=== PATIENT | male | born 1930 | race Caucasian/White ===

== ENCOUNTER 2016-07-31 11:10 | Day surgery (SDC) | payer MEDICARE ==
--- NOTE | 2016-07-27 17:09 | PCM.HPSURG ---
Subjective Date of Service: Jul 27, 2016 Referring Provider: Admitting Physician: Primary Care Physician: Esau Temple MD Attending Physician: Logan Juarez MD Chief Complaint SEE BELOW History of Present Illness Patient: Rafiq De La Vega Date of : 1930 Visit Type: Pre Op Visit Date: 07/27/2016 01:00 PM This 86 year old male presents for Preop Minimal Access/Metrx L3-5 Rahul. Decompression. History of Present Illness: 1. Preop Minimal Access/Metrx L3-5 Rahul. Decompression Rafiq De La Vega is a 86 year old male referred by Primary Care Provider (PCP) Dr. Dion Tempel M.D. who presents today's date 07/27/2016 for a preoperative type of appointment concerning the decision for surgery involving Metrx or minimal access surgery involving bilateral lumbar segmental decompression at the L3-4 & L4-5 levels with approach from the left & placement of epidural fat graft from separate subcutaneous incision secondary to a diagnosis of lumbar spinal stenosis with neurogenic claudication with related complaints of severe, intractable, and debilitating lower back pain radiating to the bilateral Left > right lower extremities worse with standing up straight or walking & better leaning forward, or sitting down. The patient last presented for another evaluation with Dr. Logan Juarez M.D. on 07/24/2016 regarding his progressive neurogenic claudication symptoms due to multilevel lumbar spinal stenosis L2 3 L3 4 and L4 5. Patient previously scheduled for surgery but canceled his surgery because of improvement of his symptoms in mid May. Since that time his symptoms have reoccurred especially in the left lower extremity with the patient is having rather severe pain. Previously patient went to proceed with open decompression at all 3 levels but he and his now considering the minimal access approach rather than the open approach. They understand it has to be a staged procedure. According to Dr. Logan Juarez M.D. the patient has intractable symptomatic lumbar spinal stenosis with neurogenic claudication indicating surgical decompression at L3-4 & L4-5. The plan is to proceed with surgery using a minimal access approach AKA Metrx type tubes from the left. Decompression of L2 -3 may be needed in the future. Dr. Juarez and the patient discussed all the risks and benefits associated with the procedure as well as reasonable expectations with respect to surgical outcomes & the patient elected to proceed with surgery as planned. The patient denies any related complete or acute loss of control of bowel or bladder function, saddle paresthesia or anesthesia. The patient has a pertinent positive past medical, surgical and social history for bilateral hemiknee arthroplasty, right shoulder acromioplasty, hearing loss , nocturia, possible BPH, 1 drink per week, & anxiety. The patient's related complaints have been a serious detriment to their happiness and activities of daily living. Having failed conservative treatment the patient presents today for their decision for surgery appointment involving Metrx or minimal access surgery involving bilateral lumbar segmental decompression at the L3-4 & L4-5 levels with approach from the left & placement of epidural fat graft from separate subcutaneous incision for treatment of lumbar spinal stenosis with neurogenic claudication; related to severe, intractable, and debilitating lower back pain radiating to the bilateral Left > right lower extremities worse with standing up straight or walking & better leaning forward, or sitting down. The procedure is scheduled to be performed by Dr. Logan Juarez M.D. on 05/31/2016. ANESTHESIA NOTE: We are requesting anesthesia consultation [facility] for advanced age & short notice for surgical scheduling. Medical/Surgical/Interim History Reviewed, no change. Last detailed document date:07/27/2016. Family History: Reviewed, no changes. Last detailed document date:07/27/2016. Social History (Reviewed, updated) 07/27/2016 Tobacco use reviewed. Preferred language is Cape Verdean. The patient does not need an upper stitcher. Marital Status/Family/Social Support Currently unknown. Smoking status: Never smoker. Smoking Status Use Status Type Smoking Status Years Used Total Pack Years no/never Never smoker CAFFEINE The patient uses caffeine - 2 cups a day. Allergies: Ingredient Reaction Medication Name Comment NO KNOWN ALLERGIES Reviewed, no changes. Review of Systems System Neg/Pos Details Eyes Negative Double vision and vision loss. Psych Negative Anxiety and depression. Constitutional Negative Chills and fever. Edison/Lymph Negative Blood clots. Cardio Negative Chest pain, irregular heartbeat/palpitations, leg swelling and pacemaker. Integumentary Negative Mrsa and rash. GI Negative Abdominal pain, constipation, diarrhea, nausea and vomiting. ENMT Negative Hearing loss. Endocrine Negative Weight gain and weight loss. Respiratory Negative Dyspnea, apnea and wheezing. MS Negative Back pain, bone/joint symptoms and muscle weakness. Negative Dysuria, urge incontinence and urinary incontinence. Neuro Negative Dizziness, headache and seizures. Vital Signs Height Time ft in cm Last Measured Height Position % 1:06 PM 5.0 7.00 170.18 07/24/2016 Weight/BSA/BMI Time lb oz kg Context % BMI kg/m2 BSA m2 1:06 PM 186.40 84.550 29.19 Blood Pressure Time BP mm/Hg Position Side Site Method Cuff Size 1:06 PM 105/57 sitting left wrist automatic adult Temperature/Pulse/Respiration Time Temp F Temp C Temp Site Pulse/min Pattern Resp/ min 1:06 PM 98.0 36.7 78 regular Pain Scale Time Pain Score Method 1:06 PM 6/10 Numeric Pain Intensity Scale Measured By Time Measured by 1:06 PM Mari Ibrahim MA Screening Summary:o Pain is described as 6/10. Evaluated pain score with Numeric Pain Intensity Scale. The following were reviewed: tobacco use, alcohol use and caffeine use Physical Exam Exam Findings Details Comments Gen.: Patient was examination and appears to be a moderate muscle skeletal discomfort HEET: Normal with full range of motion Chest : Clear P and A Heart: Regular rate and rhythm Abdomen; soft non-tender normal bowel sounds Ext.: 5-/5 strenght. Numbness in a stocking distribution. Negative straight leg midline degrees some mild giveaway weakness of dorsiflexion on the left. Back: There is involuntary paraspinous muscle spasm. No tenderness over the SI joint. Walter's maneuver is negative. Radiographic imaging: Patient is multilevel degenerative disc and facet disease with severe stenosis at the L3 4 and L4 5 levels and moderate to severe stenosis at L2-3. No evidence of a spondylolisthesis. Assessment/Plan # Detail Type Description 1. Assessment Lumbar stenosis with neurogenic claudication (M48.06). 2. Assessment Preop examination (Z01.818). Patient Plan We including your Attending Surgeon have discussed the risks and benefits associated your scheduled procedure which you have verbally acknowledged understanding including but not limited to the possibility of an outcome that we are unable to predict or was not mentioned. 1. You are scheduled for a Metrx or minimal access surgery involving bilateral lumbar segmental decompression at the L3-4 & L4-5 levels with approach from the left & placement of epidural fat graft from separate subcutaneous incision with Dr. Logan Juarez M.D. at [facility] on 05/31/2017. 2. Check in time is 11 AM. Also please ignore instructions below if told otherwise by your preadmission nurse or if you do not take the medications listed below. 3. Nothing to eat after midnight the night before surgery. You may take all of your "approved" medications with small sips of water. Remember to take your a.m. hypertension medication if it is a beta harish and ends in "olol. Otherwise ask your doctor if you need to hold your a.m. hypertension medication. 4. No aspirin, ibuprofen, Naprosyn, or other NSAIDs starting 7 days prior to surgery. 5. Please stop Warfarin/Coumadin or other blood thinners such as Plavix, Aggrenox, or Xarelto 7 days prior to your surgical procedure and follow specific instructions from your prescribing provider. 6. Please stop Lovenox bridging in the morning one day prior to procedure. 7. Please stop Suboxone/Buprenorphine at least 4 days prior to procedure. 8. Go to the hospital today to get her preoperative testing done. Take the order form to the surgery desk on the second floor of the [facility] (main entrance next to the emergency entrance). I will notify you if there is any test results that require further workup prior to surgery. 9. Follow the instructions you were given today, use the cleansing cloths the night before as well as the morning of her surgery. 10. If you are prescribed inhalers, CPAP or BiPAP machines you use at home bring along with you to the hospital. 11. ONLY If you take medications for Diabetes: If you have an insulin pump continue lowest (typically night-time) basal rate into the a.m. If you do not have a pump check h your a.m. blood sugar and hold insulin if BS less than 100. If you are taking long-acting, intermediate acting (NPH) or 70/30 preparation : Take half on day of procedure. If you are taking ultra long-acting insulin such as glargine, Lantus either at night or in the a.m. continue as scheduled ( including day of surgery). If you take short acting regular insulin (insulin not delivered via pump) discontinue on day of procedure. 12. Please call if you have any questions before your surgery: [phone]. Today's instructions/counseling include(s) Pre-operative instructions given to the patient and or legal car sales representative(s) orally and in writing. 13. Our office will contact you if there are any test results that require further workup prior to surgery. Provider Plan The patient's history and examination as well as radiological findings were reviewed with Dr. Logan Juarez M.D. and conveyed the patient in detail. The findings are consistent with lumbar spinal stenosis with neurogenic claudication and are most likely the cause of the patient's severe, intractable , and debilitating lower back pain radiating to the bilateral Left > right lower extremities worse with standing up straight or walking & better leaning forward, or sitting down. The patient has failed extensive conservative treatment for this condition. The treatment options were discussed with the patient. The options include attempt to live with the condition, reattempt conservative treatment, try a pain management intervention / injection or consider a surgical intervention. We are not extremely optimistic that further conservative treatment, pain management intervention and/or injection will adequately resolve the patient's symptoms of severe, intractable, and debilitating lower back pain radiating to the bilateral Left > right lower extremities worse with standing up straight or walking & better leaning forward, or sitting down. Therefore we recommend Metrx or minimal access surgery involving bilateral lumbar segmental decompression at the L3-4 & L4-5 levels with approach from the left & placement of epidural fat graft from separate subcutaneous incision. The patient was provided/offered educational materials pertaining to their diagnosis and the above discussed procedure. We discussed the risks and benefits associated with this surgery. A spine model was used to explain the nature of this type of surgery. The risk of the required anesthesia was also mentioned including but not limited to organ failure such as heart attack, pneumonia and stroke even . The risk of this type of surgery was also mentioned. Including but not limited to an unsuccessful outcome, residual symptoms, referred or radiating posterior spinal myofascial inflammatory pain or spasm, post operative instability, instrumentation failure, sensory changes, blood loss, blood clots, wound infection, spinal cord or nerve damage, CSF or lymph leak, damage to neighboring structures such as the abdominal vasculature, bowel, ureter, and bladder, resulting in temporary or permanent dysfunction, even disability, paralysis, and . The recovery of this type of surgery was also mentioned. The chances for improvement of the lumbar spinal stenosis & neurogenic claudication related symptomatology at one year is 70-80%. The chances of improvement of local mechanical lower back pain is 50%. The patient verbalized understanding all the risks and benefits, knowing that it is impossible to predict or guarantee every surgical outcome; and would like to proceed with the above discussed procedure anyways. Surgery is scheduled for 07/31/[address] [facility] preoperative screening tests, medicine restrictions, and logistical protocols apply. Any preoperative testing is within normal limits to undergo the above discussed procedure unless otherwise noted in the medical record. ANESTHESIA NOTE: We are requesting anesthesia consultation [facility] for advanced age & short notice for surgical scheduling. Medications (added, continued or stopped this visit): Start Date Medication Directions Stop Date Aspir-81 81 mg tablet,delayed release take 1 tablet by oral route every day 07/27/2016 docusate sodium 250 mg capsule take 1 capsule by oral route 2 times every day 07/27/2016 finasteride 5 mg tablet take 1 tablet by oral route every day GLUCOSAMINE SULFATE hydrochlorothiazide take 1 capsule by oral route every day HYDROCODONE/ACETAMINOPHEN take 1 tablet by oral route every 6 hours as needed for pain lorazepam 1 mg tablet take 1 tablet by oral route 2 times every day as needed lovastatin take 1 tablet by oral route every day with the evening meal mirtazapine 15 mg tablet take 1 tablet by oral route every day before bedtime 07/30/2016 [place] 10 mg-325 mg tablet take 1-2 tablet by oral route every 4 - 6 hours as needed for pain Super B-50 Complex capsule tamsulosin 0.4 mg capsule take 1 capsule by oral route every day 1/2 hour following the same meal each day 07/27/2016 trazodone 100 mg tablet take 0.5 tablet by oral route every day after meals venlafaxine 75 mg tablet take 1 tablet by oral route 2 times every day with food Counseling/Educational Factors: Counseling / educational factors reviewed. Counseling / educational factors reviewed. This is a visit of 60 minutes. 50 minutes were spent counseling. The patient was checked out at 2:02 PM. This document may have been created using voice recognition software or other electronic means and may contain inadvertent adapted physical education specialist errors. Provider: Toni MCELROY 07/27/2016 02:19 PM Document generated by: Toni Cobb 07/27/2016 02:19 PM CC Providers: Dion Temple [address] [place] [id number]- Dion Temlpe [address] [place] [phone] [place] [address] w w howie Del Toro s r c l i n i c seda rubio Allergy Allergies: Coded Allergies: No Known Allergies (Verified , 11/26/03) Toni Cobb PA-C Jul 27, 2016 17:09
[~2016-07-31] VITALS: Ht 170.2 cm; Wt 83.9 kg
[2016-07-31] VITALS (14 sets, daily range): BP systolic 129–179; BP diastolic 51–78; PULSE 64–78; RESP 12–20; O2SAT 94–100
[~2016-07-31 11:10] MED LIST: ASPI-973 PO; Bacitracin 50,000 unit Inj IRRIGATION ONE; Bupivacaine Liposome 1.3% 20 mL Inj INFILTRATE ONE; CeFAZolin 2 Gm/50 mL D5W IV Premix IV ONE; DOCU250C2 PO; FINA5TAB9 PO; GLUC1CAP8 PO; HYDR-3740 PO; HYDR25TA4 PO; LORA1TAB PO; LOVA20TA PO; Lactated Ringer's 1,000 ML IV SCH; MIRT15TA6 PO; TAMS0.4C98 PO; TRAZ-118 PO; Thrombin Powder 5,000 Unit TOPICAL ONE; VENL37.57 PO; VITA150T PO
[2016-07-31] MEDS ORDERED: Lidocaine PF 1% 30 mL Inj ONE (11:11)
[2016-07-31] MEDS ORDERED: Phenylephrine/NS 100 mCg/mL 10 mL Syringe IVPUSH ONE (11:11)
[2016-07-31] MEDS ORDERED: Propofol 10,000 mCg/mL 20 mL Inj ONE (11:11)
[2016-07-31] MEDS ORDERED: Dexamethasone 4 mg/mL Inj ONE (11:11)
[2016-07-31] MEDS ORDERED: Ondansetron 2 mg/mL 2 mL Inj ONE (11:11)
[2016-07-31] MEDS ORDERED: EPHEDrine/NS 5 mg/mL 5 mL Syringe ONE (11:11)
[2016-07-31] MEDS ORDERED: fentaNYL-PF 50 mCg/mL 2 mL Inj ONE (11:11)
[2016-07-31] MEDS ORDERED: CeFAZolin 2 Gm/50 mL D5W Duplex Bag IV ONE (12:27)
[2016-07-31] MEDS ORDERED: Lactated Ringer's 1,000 ML IV ONE ×2 (12:48→14:40)
[2016-07-31] MEDS ORDERED: Bacitracin 50,000 unit Inj ONE (13:16)
[2016-07-31] MEDS ORDERED: Thrombin Powder 5,000 Unit TOPICAL ONE ×2 (13:16→14:19)
[2016-07-31] MEDS ORDERED: Bupivacaine Liposome 1.3% 20 mL Inj ONE (13:17)
--- NOTE | 2016-07-31 13:25 | PCM.HPANE ---
Patient Data Surgeon Admitting Provider: Attending Provider:Logan Juarez MD Primary Care Physician:Esau Temple MD Other Provider:Chiara Youingham Anesthesia Reason for Visit Lumbar Stenosis With Neurogenic Claudication Ht/WT & BMI Height (Feet): 5 Height (Inches): 7 Weight (Kilograms): 83.9 Body Mass Index 29.00 Allergies Coded Allergies: No Known Allergies (Verified , 11/26/03) Past Anesthesia History Anesthesia History: Denies:: Anesthesia Reactions Diabetes History Hx Diabetes?: No Medications Blood Thinner: Aspirin Hypertension Medication: Yes (HCTZ) Home Meds Incl Beta Kyaw: No Reported Medications Venlafaxine 37.5 Mg Ffduva41.5 Mg PO BIDWM Ref 0 07/30/16 Trazodone 100 Mg [id number] Mg PO HS Ref 0 07/30/16 Tamsulosin (Flomax)0.4 Mg Capsule0.4 Mg PO DAILY Ref 0 07/30/16 Vitamin B Complex & Vit C No.4 (Super B Complex)150 Mg [id number] Mg PO DAILY 07/30/16 Hydrocodone-Acetaminophen 10-325 mg 1 Each Tablet1-2 Tablet PO Q4H PRN For Pain Ref 0 07/30/16 Mirtazapine 15 Mg [id number] Mg PO HS Ref 0 07/30/16 Lovastatin 20 Mg [id number] Mg PO HS #30 TABLET Ref 0 07/30/16 Lorazepam 1 Mg Tablet1 Mg PO HS PRN For Insomnia Ref 0 07/30/16 Hydrochlorothiazide 25 Mg [id number] Mg PO DAILY 30 Days Ref 0 07/30/16 Gluc Briones/MSM/Magnesium/Vit C (Glucosamine Complex-MSM Cap)1 Each Capsule1 Each PO DAILY 07/30/16 Finasteride 5 Mg Tablet5 Mg PO DAILY 30 Days Ref 0 07/30/16 Docusate Sodium 250 Mg [id number] Mg PO BID PRN For Constipation Ref 0 07/30/16 Aspirin 81 Mg Aobbyf31 Mg PO DAILY Ref 0 07/30/16 History History of ENT Problems?: Yes HEENT History: Positive for:: Cataracts (bilateral) Hx of Heart Problems?: Yes Cardiovascular History: Positive for:: Hypertension Hx of Respiratory Problem?: No Respiratory History: Denies:: Oxygen Administration Use of C-PAP Machine Hx Neurologic Problems?: No Hx of GI Problems?: No Hx of Problems?: No Male Hx: Positive for:: Prostate Problems (BPH) Skin History: Denies:: History Skin Disorders? Hx Musculoskeletal Problems?: Yes Musculoskeletal History: Positive for:: Back Injury (current admission problem ) Joint Replacement (bilateral knees) Musculoskeletal Trauma (past hx acromioplasty) Hx of Psycho/Social Problems?: Yes Psycho Social History: Positive for:: Hx Depression Hx Surgeries?: Yes (andi cataracts, andi partial knees, acromioplasty) Hx Any Other Health Problems?: Yes Other History: Denies:: Cancer Thyroid Disease Hx Diabetes: No Hx Alcohol Use: Yes (daily)Hx Substance Use: NoHave You Smoked inLast 12 mo: No Stop/Bang S-Snoring: Do You Snore Loudly: No T-Tired: feel tired, fatigued: No O-Obsered: Observed not breath: No P-Blood Pressure: treated: Yes B- Body Mass Index > 35 kg/m2: No A- Age over 50: Yes N- Neck Large Circumference: No G- Gender Male: Yes EN Total Score: 3 EN Risk Assessment: Low Risk, <3 Yes Risk Assessment Category Category 1A: Patient has history of documented sleep apnea, and HAS NOT received any narcotic, sedative or anesthesia administration during this stay. Category 1B: Patient has history of documented sleep apnea, and HAS received any narcotic , sedative or anesthesia administration during this stay Category 2: Patient has SUSPECTED Obstructive Sleep Apnea, and HAS received any narcotic , sedative or anesthesia administration during this stay. Category 3: Patient has SUSPECTED Obstructive Sleep Apnea and HAS NOT received narcotic, sedative or anesthesia administration during this stay. Category 4: Outpatient in Procedural Areas with known sleep apnea or who screen positive for High Risk via the STOP/BANG questionnaire. Exam Exam Vital Signs Vital Signs Date Time Temp Pulse Resp B/P Pulse Ox O2 Delivery O2 Flow Rate FiO2 07/31/16 11:39 36.1 64 18 174/75 97 Room Air General Appearance: Alert, Oriented X3, Cooperative HEENT/AIRWAY: MP 2 Lungs: Clear to Auscultation Heart: Exam Unremarkable Plan Impression Patient chart reviewed, patient interviewed and anesthestic plan with risks, benefits, and alternatives discussed, and informed consent obtained. ASA Physical Status: ASA2 Mod Systemic Disease Anesthetic Plan: GA Bene/Risks/Altern/Consents: Yes HP Complete Prior to Induction: Yes Clifton Lindsey DO Jul 31, 2016 12:21
[2016-07-31] MEDS ORDERED: Lactated Ringer's 1,000 ML IV SCH (13:27)
[2016-07-31] MEDS ORDERED: Lactated Ringer's 500 ML IV PRN (13:27)
[2016-07-31] MEDS ORDERED: MetoCLOpramide 5 mg/mL 2 mL Inj IVPUSH PRN ×2 (13:30→16:40)
[2016-07-31] MEDS ORDERED: Dexamethasone 4 mg/mL Inj IVPUSH PRN (13:30)
[2016-07-31] MEDS ORDERED: EPHEDrine Sulfate 50 mg/mL Inj IVPUSH PRN (13:30)
[2016-07-31] MEDS ORDERED: HYDROmorphone 1 mg/mL Inj IVPUSH PRN ×2 (13:30→16:40)
[2016-07-31] MEDS ORDERED: Phenylephrine 10,000 mCg/mL Inj IVPUSH PRN (13:30)
[2016-07-31] MEDS ORDERED: fentaNYL-PF 50 mCg/mL 2 mL Inj IVPUSH PRN (13:30)
[2016-07-31] MEDS ORDERED: Ondansetron 2 mg/mL 2 mL Inj IVPUSH PRN ×2 (13:30→16:40)
[2016-07-31] MEDS ORDERED: Atropine 0.4 mg/mL Inj IVPUSH PRN (13:30)
[2016-07-31] MEDS ORDERED: Labetalol 5 mg/mL 4 mL Inj IV PRN (13:30)
[2016-07-31] MEDS ORDERED: hydrALAZINE 20 mg/mL Inj IVPUSH PRN (13:30)
[2016-07-31] MEDS ORDERED: Bacitracin 50,000 unit Inj XX ONE (14:18)
[2016-07-31] MEDS ORDERED: Gelatin Sponge 12-7 MM TOPICAL ONE (14:19)
[2016-07-31] MEDS ORDERED: Bupivacaine-MPF 0.25%/EPI 30 mL Inj INJ ONE (14:19)
[2016-07-31] MEDS ORDERED: Sodium Chloride Bacteriostatic 30 mL Inj IV ONE (14:20)
--- NOTE | 2016-07-31 14:34 | DRSVH ---
PROCEDURE: X-RAY LUMBAR SPINE, 2 OR 3 VIEW INDICATIONS: BILATERAL L3-4, L4-5 LUMBAR DECOMPRESSION TECHNIQUE: 2 views of the lumbar spine were acquired. COMPARISON: [facility], MR, L-SPINE WITHOUT CONTRAST, 03/09/2016, 18:49. [facility] pedic [place], CR, SPINE LUMB MIN 4VW, 01/31/2016, 11:18. FINDINGS: Bones: Radiopaque surgical probe projected over the posterior elements localizing the L4-L5 level for operative planning. Soft tissues: Incompletely evaluated. IMPRESSION: Radiopaque probe projected over the posterior elements at the L4-L5 level. Dr. Juarez given results at 1432 hrs. 07/31/2016 Dictated by: Richie Anthony RRA Interpreted: Trudy Blandon MD on 07/31/2016 at 14:30 Transcribed by: LYNNE on 07/31/2016 at 14:33 Approved by: Trudy Blandon MD, PhD on 07/31/2016 at 17:10
[2016-07-31] MEDS ORDERED: Bupivacaine Liposome 1.3% 20 mL Inj INFILTRATE ONE (16:03)
[2016-07-31] MEDS ORDERED: Sodium Biphos-Phos 133 mL Enema RECTAL PRN (16:40)
[2016-07-31] MEDS ORDERED: Magnesium Hydroxide 10 mL Oral Concentration PO PRN (16:40)
[2016-07-31] MEDS ORDERED: Senna-Docusate 8.6-50 mg Tablet PO PRN (16:40)
[2016-07-31] MEDS ORDERED: hydrOXYzine Pamoate 25 mg Capsule PO PRN (16:40)
[2016-07-31] MEDS ORDERED: HYDROcodone-APAP 5-325 mg Tablet PO PRN (16:40)
[2016-07-31] MEDS ORDERED: Polyethylene Glycol (PEG) 17 Gm Powder PO PRN (16:40)
[2016-07-31] MEDS ORDERED: HYDROcodone-APAP 10-325 mg PO PRN (17:05)
[2016-07-31] MEDS: Lactated Ringer's 1,000 ML IV SCH (18:05)
--- NOTE | 2016-07-31 18:26 | NUR ---
ADMIT TO [facility] Patient arrived to room 1008 on hospital bed, awake and talking. on 2 LPM O2, REEMA drain to L lower back. Lower back dressing is C/D/I. Able to wiggle toes bilaterally, sensation present. C/o slight numbness to L foot. Minor R shoulder pain, 07/17. IV fluids running. ice water given to patient. no complaints of nausea/vomiting. Will continue to monitor.
[2016-07-31] MEDS ORDERED: LORazepam 1 mg Tablet PO PRN (21:00)
[2016-07-31] MEDS: Senna-Docusate 8.6-50 mg Tablet PO SCH (22:53)
[2016-07-31] MEDS: CeFAZolin Inj 2 GM in IV Premix 1 EACH IV SCH (22:54)
[2016-08-01 00:15] VITALS: BP 135/70; PULSE 72; RESP 16; O2SAT 96
[2016-08-01] MEDS: Lactated Ringer's 1,000 ML IV SCH ×2 (00:45→10:52)
[2016-08-01 04:06] LABS: APPEARANCE,URINE CLEAR (CLEAR,HAZY); COLOR,URINE YELLOW (YELLOW); OCCULT BLOOD,URINE NEGATIVE (NEGATIVE); UROBILINOGEN,URINE NORMAL (NORMAL)
[2016-08-01 05:02] VITALS: BP 170/80; PULSE 85; RESP 17; O2SAT 96
[2016-08-01] MEDS: CeFAZolin Inj 2 GM in IV Premix 1 EACH IV SCH (05:52)
--- NOTE | 2016-08-01 06:00 | NUR ---
Mobility Pt is very unsteady on his feet, reports feeling dizzy and lightheaded. Able to stand for short period of time with assistance and FWW to void. Oriented and using call light appropriately, patricia alarm to be placed today for safety. Unable to ambulate yet. Denies pain. Hourly rounding ongoing.
[2016-08-01] MEDS ORDERED: VIT C NO 4 PO SCH (08:30)
[2016-08-01] MEDS ORDERED: MSM PO SCH (08:30)
[2016-08-01] MEDS ORDERED: GLUC SU PO SCH (08:30)
[2016-08-01] MEDS ORDERED: MAGNESIUM PO SCH (08:30)
[2016-08-01] MEDS ORDERED: [UNRECOGNIZED DRUG - OTHER] PO SCH (08:30)
[2016-08-01] MEDS ORDERED: VITAMIN B COMPLEX PO SCH (08:30)
[2016-08-01] MEDS ORDERED: VIT C PO SCH (08:30)
[2016-08-01] MEDS: Senna-Docusate 8.6-50 mg Tablet PO SCH (08:47)
--- NOTE | 2016-08-01 09:40 | PCM.ANEP1 ---
Post Anesthesia Phase 1 PACU Phase 1 Assessment Date of Service: Jul 27, 2016 Vital Signs Vital Signs Date Time Temp Pulse Resp B/P Pulse Ox O2 Delivery O2 Flow Rate FiO2 08/01/16 05:02 36.2 85 17 170/80 96 Nasal Cannula 2.00 Level of Alertness: Awake, talking GIBBONS's with Equal Strength: Yes Pain: No Nausea or Vomiting: No Oxygen Delivery: Simple Mask (pt seen immediately post op) Lungs: Clear to Auscultation Clifton Lindsey DO Aug 01, 2016 09:40
--- NOTE | 2016-08-01 09:40 | PCM.ANEP2 ---
Post Anesthesia Evaluation ASA/CMS Post Anesthesia VS in Patient's Normal Range?: Yes Resp Stable; Airway Patent?: Yes CV Function & Hydration Stable: Yes Mental Status Recovered?: Yes Pain control Satisfactory?: Yes N/V Control Satisfactory?: Yes Clifton Lindsey DO Aug 01, 2016 09:40
[2016-08-01 10:50] VITALS: BP 172/77; PULSE 74; RESP 16; O2SAT 97
--- NOTE | 2016-08-01 10:53 | PCM.DISURG ---
Surgical Discharge Instruction Date of Service Aug 01, 2016 Dates of Hospitalization Date of Hospital Admission Outpatient with a bed status 07/31/2016 Providers Admitting Physician: Primary Care Physician: Esau Temple MD Attending Physician: Logan Juarez MD Discharge Diagnosis Discharge Diagnosis Status post Metrx minimal access surgery involving bilateral lumbar segmental decompression at the L3-4 & L4-5 levels with approach from the left & placement of epidural fat graft from separate subcutaneous incision Post Operative diagnosis Status post Metrx minimal access surgery involving bilateral lumbar segmental decompression at the L3-4 & L4-5 levels with approach from the left & placement of epidural fat graft from separate subcutaneous incision Additional Instructions Discharge Instructions Minimally Invasive Lumbar Spinal Laminectomy & Decompression Instructions What is my recovery like? The hospital stay is usually overnight with discharge the next day. Occasionally patient's stay an additional night. A lumbar brace is worn for comfort only. What are my restrictions? You should not lift anything heavier than five pounds. You should not perform any excessive bending from the waist or twisting movements. Can I Shower? You may shower when you go home. You must remove the outside dressing on the 7th day after surgery, or change as needed if soiled or saturated (replacing new sterile gauze & water proof dressing) otherwise leave alone. The remaining small pieces of tape (steri-strips) directly on top of the incision may get wet. The steri-strips will fall off on their own. Can I drive? No, you should not drive until specifically given permission from your Doctor in a follow up appointment. Most Patient's can drive in 2-3 weeks if they are not taking narcotic pain medications or muscle relaxers. You may ride in a car, but should avoid trips longer than two hours in duration. When can I return work / sports? Your Doctor will discuss your return to work with you on your first postoperative follow-up appointment. Most patients may return to work within 2 weeks for sedentary jobs. More physically demanding jobs may require 3-6 months of healing before such work can be considered. When should I call the doctor? You should call your Doctor or go to the Emergency Department if you develop chest pain, shortness of breath, a temperature greater than 101.5 F, severe uncontrolled pain or weakness, loss of bowel or bladder function, choking, lots or drainage, pus discharge or constipation. Instructions Regarding Comfort & Pain Medication Used: During the recovery period, even with the use of pain medication, you may experience pain at the site of surgery. You may also have the same type of pain you had before surgery. Please use your pain scale as a guide for taking your pain medication. When your pain is greater than 4 out of 10, or when your pain reaches your personal tolerable level of pain, take your pain medication as prescribed. Use your pain medication on an 'as needed' basis. This means if your pain level is within your tolerable level of pain you DO NOT need to take the medication. As you get better, you will notice you can increase the time interval between doses and decrease the number of tablets you are taking, gradually taking less and less pain medication. Taking pain medication when it is not necessary (for example when your pain is tolerable or acceptable) can result in dangerous side effects and over- sedation. Signs and symptoms of over-sedation include: drowsiness, excessive sleeping, slow or difficult breathing, slurred speech, impaired thinking, confusion, impaired motor coordination. If you have any of these symptoms stop taking the medication and immediately contact your doctor. IF SYMPTOMS ARE LIFE THREATENING CALL 911. To decrease pain and swelling, frequently apply an ice pack for 20 min intervals with at least one hour off. When to take Acetaminophen for pain? If you don't have liver problems, allergies and/or Tylenol is not in your current pain medication. Take Extra Strength Tylenol 500mg 2 tabs by mouth every 6 hours as needed for pain. DO NOT EXCEED 8 TABS PER DAY. Follow Up Plan Follow Up Plan Follow-up with physician speech language pathologist assistant in outpatient neurosurgical clinic in 1 week for wound check. Additional Information Attending Statement All documentation reviewed & orders authorized by Dr. Logan Juarez M.D. Toni Cobb PA-C Aug 01, 2016 10:53
--- NOTE | 2016-08-01 11:17 | PCM.DC.SUR ---
Discharge Summary Date of Service: Aug 01, 2016 Date of Hospital Admission: 07/31/2016 outpatient with a bed status Date of Operation(s): 07/31/2016 Date of Discharge: Diagnosis at Time of Discharge Status post Metrx minimal access surgery involving bilateral lumbar segmental decompression at the L3-4 & L4-5 levels with approach from the left & placement of epidural fat graft from separate subcutaneous incision Problems: Operation Metrx minimal access surgery involving bilateral lumbar segmental decompression at the L3-4 & L4-5 levels with approach from the left & placement of epidural fat graft from separate subcutaneous incision Brief History and Physical: Patient: Rafiq De La Vega Date of : 1930 Visit Type: Pre Op Visit Date: 07/27/2016 01:00 PM This 86 year old male presents for Preop Minimal Access/Metrx L3-5 Rahul. Decompression. History of Present Illness: 1. Preop Minimal Access/Metrx L3-5 Rahul. Decompression Rafiq De La Vega is a 86 year old male referred by Primary Care Provider (PCP) Dr. Dion Temple M.D. who presents today's date 07/27/2016 for a preoperative type of appointment concerning the decision for surgery involving Metrx or minimal access surgery involving bilateral lumbar segmental decompression at the L3-4 & L4-5 levels with approach from the left & placement of epidural fat graft from separate subcutaneous incision secondary to a diagnosis of lumbar spinal stenosis with neurogenic claudication with related complaints of severe, intractable, and debilitating lower back pain radiating to the bilateral Left > right lower extremities worse with standing up straight or walking & better leaning forward, or sitting down. The patient last presented for another evaluation with Dr. Logan Juarez M.D. on 07/24/2016 regarding his progressive neurogenic claudication symptoms due to multilevel lumbar spinal stenosis L2 3 L3 4 and L4 5. Patient previously scheduled for surgery but canceled his surgery because of improvement of his symptoms in mid May. Since that time his symptoms have reoccurred especially in the left lower extremity with the patient is having rather severe pain. Previously patient went to proceed with open decompression at all 3 levels but he and his now considering the minimal access approach rather than the open approach. They understand it has to be a staged procedure. According to Dr. Logan Juarez M.D. the patient has intractable symptomatic lumbar spinal stenosis with neurogenic claudication indicating surgical decompression at L3-4 & L4-5. The plan is to proceed with surgery using a minimal access approach AKA Metrx type tubes from the left. Decompression of L2 -3 may be needed in the future. Dr. Juarez and the patient discussed all the risks and benefits associated with the procedure as well as reasonable expectations with respect to surgical outcomes & the patient elected to proceed with surgery as planned. The patient denies any related complete or acute loss of control of bowel or bladder function, saddle paresthesia or anesthesia. The patient has a pertinent positive past medical, surgical and social history for bilateral hemiknee arthroplasty, right shoulder acromioplasty, hearing loss , nocturia, possible BPH, 1 drink per week, & anxiety. The patient's related complaints have been a serious detriment to their happiness and activities of daily living. Having failed conservative treatment the patient presents today for their decision for surgery appointment involving Metrx or minimal access surgery involving bilateral lumbar segmental decompression at the L3-4 & L4-5 levels with approach from the left & placement of epidural fat graft from separate subcutaneous incision for treatment of lumbar spinal stenosis with neurogenic claudication; related to severe, intractable, and debilitating lower back pain radiating to the bilateral Left > right lower extremities worse with standing up straight or walking & better leaning forward, or sitting down. The procedure is scheduled to be performed by Dr. Logan Juarez M.D. on 05/31/2016. ANESTHESIA NOTE: We are requesting anesthesia consultation [facility] for advanced age & short notice for surgical scheduling. Medical/Surgical/Interim History Reviewed, no change. Last detailed document date:07/27/2016. Family History: Reviewed, no changes. Last detailed document date:07/27/2016. Social History (Reviewed, updated) 07/27/2016 Tobacco use reviewed. Preferred language is Korean. The patient does not need an wire chief. Marital Status/Family/Social Support Currently unknown. Smoking status: Never smoker. Smoking Status Use Status Type Smoking Status Years Used Total Pack Years no/never Never smoker CAFFEINE The patient uses caffeine - 2 cups a day. Allergies: Ingredient Reaction Medication Name Comment NO KNOWN ALLERGIES Reviewed, no changes. Review of Systems System Neg/Pos Details Eyes Negative Double vision and vision loss. Psych Negative Anxiety and depression. Constitutional Negative Chills and fever. Edison/Lymph Negative Blood clots. Cardio Negative Chest pain, irregular heartbeat/palpitations, leg swelling and pacemaker. Integumentary Negative Mrsa and rash. GI Negative Abdominal pain, constipation, diarrhea, nausea and vomiting. ENMT Negative Hearing loss. Endocrine Negative Weight gain and weight loss. Respiratory Negative Dyspnea, apnea and wheezing. MS Negative Back pain, bone/joint symptoms and muscle weakness. Negative Dysuria, urge incontinence and urinary incontinence. Neuro Negative Dizziness, headache and seizures. Vital Signs Height Time ft in cm Last Measured Height Position % 1:06 PM 5.0 7.00 170.18 07/24/2016 Weight/BSA/BMI Time lb oz kg Context % BMI kg/m2 BSA m2 1:06 PM 186.40 84.550 29.19 Blood Pressure Time BP mm/Hg Position Side Site Method Cuff Size 1:06 PM 105/57 sitting left wrist automatic adult Temperature/Pulse/Respiration Time Temp F Temp C Temp Site Pulse/min Pattern Resp/ min 1:06 PM 98.0 36.7 78 regular Pain Scale Time Pain Score Method 1:06 PM 6/10 Numeric Pain Intensity Scale Measured By Time Measured by 1:06 PM Mari Ibrahim MA Screening Summary:o Pain is described as 6/10. Evaluated pain score with Numeric Pain Intensity Scale. The following were reviewed: tobacco use, alcohol use and caffeine use Physical Exam Exam Findings Details Comments Gen.: Patient was examination and appears to be a moderate muscle skeletal discomfort HEET: Normal with full range of motion Chest : Clear P and A Heart: Regular rate and rhythm Abdomen; soft non-tender normal bowel sounds Ext.: 5-/5 strenght. Numbness in a stocking distribution. Negative straight leg midline degrees some mild giveaway weakness of dorsiflexion on the left. Back: There is involuntary paraspinous muscle spasm. No tenderness over the SI joint. Walter's maneuver is negative. Radiographic imaging: Patient is multilevel degenerative disc and facet disease with severe stenosis at the L3 4 and L4 5 levels and moderate to severe stenosis at L2-3. No evidence of a spondylolisthesis. Assessment/Plan # Detail Type Description 1. Assessment Lumbar stenosis with neurogenic claudication (M48.06). 2. Assessment Preop examination (Z01.818). Patient Plan We including your Attending Surgeon have discussed the risks and benefits associated your scheduled procedure which you have verbally acknowledged understanding including but not limited to the possibility of an outcome that we are unable to predict or was not mentioned. 1. You are scheduled for a Metrx or minimal access surgery involving bilateral lumbar segmental decompression at the L3-4 & L4-5 levels with approach from the left & placement of epidural fat graft from separate subcutaneous incision with Dr. Logan Juarez M.D. at [facility] on 05/31/2017. 2. Check in time is 11 AM. Also please ignore instructions below if told otherwise by your preadmission nurse or if you do not take the medications listed below. 3. Nothing to eat after midnight the night before surgery. You may take all of your "approved" medications with small sips of water. Remember to take your a.m. hypertension medication if it is a beta harish and ends in "olol. Otherwise ask your doctor if you need to hold your a.m. hypertension medication. 4. No aspirin, ibuprofen, Naprosyn, or other NSAIDs starting 7 days prior to surgery. 5. Please stop Warfarin/Coumadin or other blood thinners such as Plavix, Aggrenox, or Xarelto 7 days prior to your surgical procedure and follow specific instructions from your prescribing provider. 6. Please stop Lovenox bridging in the morning one day prior to procedure. 7. Please stop Suboxone/Buprenorphine at least 4 days prior to procedure. 8. Go to the hospital today to get her preoperative testing done. Take the order form to the surgery desk on the second floor of the hospital, [facility] (main entrance next to the emergency entrance). I will notify you if there is any test results that require further workup prior to surgery. 9. Follow the instructions you were given today, use the cleansing cloths the night before as well as the morning of her surgery. 10. If you are prescribed inhalers, CPAP or BiPAP machines you use at home bring along with you to the hospital. 11. ONLY If you take medications for Diabetes: If you have an insulin pump continue lowest (typically night-time) basal rate into the a.m. If you do not have a pump check h your a.m. blood sugar and hold insulin if BS less than 100. If you are taking long-acting, intermediate acting (NPH) or 70/30 preparation : Take half on day of procedure. If you are taking ultra long-acting insulin such as glargine, Lantus either at night or in the a.m. continue as scheduled ( including day of surgery). If you take short acting regular insulin (insulin not delivered via pump) discontinue on day of procedure. 12. Please call if you have any questions before your surgery: [phone]. Today's instructions/counseling include(s) Pre-operative instructions given to the patient and or legal insurance healthcare representative(s) orally and in writing. 13. Our office will contact you if there are any test results that require further workup prior to surgery. Provider Plan The patient's history and examination as well as radiological findings were reviewed with Dr. Logan Juarez M.D. and conveyed the patient in detail. The findings are consistent with lumbar spinal stenosis with neurogenic claudication and are most likely the cause of the patient's severe, intractable , and debilitating lower back pain radiating to the bilateral Left > right lower extremities worse with standing up straight or walking & better leaning forward, or sitting down. The patient has failed extensive conservative treatment for this condition. The treatment options were discussed with the patient. The options include attempt to live with the condition, reattempt conservative treatment, try a pain management intervention / injection or consider a surgical intervention. We are not extremely optimistic that further conservative treatment, pain management intervention and/or injection will adequately resolve the patient's symptoms of severe, intractable, and debilitating lower back pain radiating to the bilateral Left > right lower extremities worse with standing up straight or walking & better leaning forward, or sitting down. Therefore we recommend Metrx or minimal access surgery involving bilateral lumbar segmental decompression at the L3-4 & L4-5 levels with approach from the left & placement of epidural fat graft from separate subcutaneous incision. The patient was provided/offered educational materials pertaining to their diagnosis and the above discussed procedure. We discussed the risks and benefits associated with this surgery. A spine model was used to explain the nature of this type of surgery. The risk of the required anesthesia was also mentioned including but not limited to organ failure such as heart attack, pneumonia and stroke even . The risk of this type of surgery was also mentioned. Including but not limited to an unsuccessful outcome, residual symptoms, referred or radiating posterior spinal myofascial inflammatory pain or spasm, post operative instability, instrumentation failure, sensory changes, blood loss, blood clots, wound infection, spinal cord or nerve damage, CSF or lymph leak, damage to neighboring structures such as the abdominal vasculature, bowel, ureter, and bladder, resulting in temporary or permanent dysfunction, even disability, paralysis, and . The recovery of this type of surgery was also mentioned. The chances for improvement of the lumbar spinal stenosis & neurogenic claudication related symptomatology at one year is 70-80%. The chances of improvement of local mechanical lower back pain is 50%. The patient verbalized understanding all the risks and benefits, knowing that it is impossible to predict or guarantee every surgical outcome; and would like to proceed with the above discussed procedure anyways. Surgery is scheduled for 07/31/[address] [facility] preoperative screening tests, medicine restrictions, and logistical protocols apply. Any preoperative testing is within normal limits to undergo the above discussed procedure unless otherwise noted in the medical record. ANESTHESIA NOTE: We are requesting anesthesia consultation [facility] for advanced age & short notice for surgical scheduling. Medications (added, continued or stopped this visit): Start Date Medication Directions Stop Date Aspir-81 81 mg tablet,delayed release take 1 tablet by oral route every day 07/27/2016 docusate sodium 250 mg capsule take 1 capsule by oral route 2 times every day 07/27/2016 finasteride 5 mg tablet take 1 tablet by oral route every day GLUCOSAMINE SULFATE hydrochlorothiazide take 1 capsule by oral route every day HYDROCODONE/ACETAMINOPHEN take 1 tablet by oral route every 6 hours as needed for pain lorazepam 1 mg tablet take 1 tablet by oral route 2 times every day as needed lovastatin take 1 tablet by oral route every day with the evening meal mirtazapine 15 mg tablet take 1 tablet by oral route every day before bedtime 07/30/2016 Waterfall 10 mg-325 mg tablet take 1-2 tablet by oral route every 4 - 6 hours as needed for pain Super B-50 Complex capsule tamsulosin 0.4 mg capsule take 1 capsule by oral route every day 1/2 hour following the same meal each day 07/27/2016 trazodone 100 mg tablet take 0.5 tablet by oral route every day after meals venlafaxine 75 mg tablet take 1 tablet by oral route 2 times every day with food Counseling/Educational Factors: Counseling / educational factors reviewed. Counseling / educational factors reviewed. This is a visit of 60 minutes. 50 minutes were spent counseling. The patient was checked out at 2:02 PM. This document may have been created using voice recognition software or other electronic means and may contain inadvertent bean picker errors. Provider: Toni MCELROY 07/27/2016 02:19 PM Document generated by: Toni Cobb 07/27/2016 02:19 PM CC Providers: Dion Temple [address] [place] [id number] Dion Temple [facility] [address] [place] [id number] [address] [place] [address] w w howie askew c l i n i c s Alverto o jamilah g Hospital Course: Hospital Course: The patient was admitted through same day surgery and subsequently underwent a Metrx minimal access surgery involving bilateral lumbar segmental decompression at the L3-4 & L4-5 levels with approach from the left & placement of epidural fat graft from separate subcutaneous incision basal. The patient tolerated the procedure well. The patient was then was transferred to PACU and then to the [facility] floor. The patient was admitted for postoperative pain control, PT/OT, supervised for advanced age, hypertension, & anxiety co-morbidities with nurse monitoring, continuous pulse oximetry, and discharge planning. The Patient's overnight course was within normal limits. Currently the patient has complaints of surgical side pain & posterior referred myofascial inflammatory spasm are adequately controlled the current postoperative analgesics & muscle relaxants. There is significant improvement of the patient' s residual lumbar spinal stenosis related symptoms. The patient denies headache, severe sore throat or dysphagia, chest pain, shortness of breath, abdominal pain, nausea, vomiting, constipation, diarrhea, or any new onset &/or location of pain, weakness or paresthesias aside from the surgical site. PHYSICAL EXAM This is a well developed, well nourished, elderly male who is alert, cooperative , and appears to be in no acute distress with a pleasant affect & euthymic mood. Exam of the head is normocephalic. PERRL, EOMI, without facial droop, hearing grossly intact, nostrils patent, oral cavity and pharynx normal. Voice is within normal limits Exam or the heart reveals regular rate and rhythm without audible murmurs The lungs are clear to auscultation bilaterally. The abdomen is non- tender and non-distended. Exam of the lumbar surgical wound reveals that it is clean, dry, and intact; without signs of infection, dementia, and/or hematoma. There will be a surgical drain fluid rate of less than 40 mL in 8 hour period prior to discharge. Gross exam of the extremities reveals strength & sensation are grossly intact within the patient's normal baseline limits. The patient was eventually able to get out of bed and ambulate within acceptable limits for recommended home health services. Therapy services made recommendations for disposition. Flatus was appreciated and the patient was able to void without significant difficulty. The pain was gradually under control. The patient was afebrile on discharge. The patient's incision(s) was clean, dry and intact. The dressing was changed to the Surgeon's specifications. The rate of output from the wound drain will be less then 40cc' s in an 8 hour period prior to discharge and then therefore the drain will be removed. The patient progressed well with rehabilitation and was subsequently discharged to home in stable condition with Dr. Juarez's authorization. The patient verbally affirmed understanding when given clear instruction regarding the postoperative care and follow-up including but not limited to seeking immediate medical attention for chest pain, shortness of breath, a temperature greater than 101.5 F, severe uncontrolled pain or weakness, loss of bowel or bladder function, choking, lots or drainage, pus discharge or constipation. All questions were answered. Disposition: Home in stable condition if the patient needs all specific ordered surgical discharge parameters Follow-up Plan: Follow-up with physician entry level marketing assistant in outpatient neurosurgical clinic in 1 week for wound check. Aspirin (Aspirin) 81 Mg Tablet 81 MG PO DAILY (Reported) Docusate Sodium (Docusate Sodium) 250 Mg Capsule 250 MG PO BID PRN PRN For Constipation (Reported) Finasteride (Finasteride) 5 Mg Tablet 5 MG PO DAILY (Reported) Gluc Briones/MSM/Magnesium/Vit C (Glucosamine Complex-MSM Cap) 1 Each Capsule 1 EACH PO DAILY (Reported) Hydrochlorothiazide (Hydrochlorothiazide) 25 Mg Tablet 25 MG PO DAILY (Reported ) Hydrocodone-Acetaminophen 10-325 mg (Hydrocodone-Acetaminophen 10-325 mg) 1 Each Tablet 1-2 TABLET PO Q4H PRN PRN For Pain (Reported) Lorazepam (Lorazepam) 1 Mg Tablet 1 MG PO HS PRN PRN For Insomnia (Reported) Lovastatin (Lovastatin) 20 Mg Tablet 20 MG PO HS (Reported) Mirtazapine (Mirtazapine) 15 Mg Tablet 15 MG PO HS (Reported) Tamsulosin (Flomax) 0.4 Mg Capsule 0.4 MG PO DAILY (Reported) Trazodone (Trazodone) 100 Mg Tablet 50 MG PO HS (Reported) Venlafaxine (Venlafaxine) 37.5 Mg Tablet 37.5 MG PO BIDWM (Reported) Vitamin B Complex & Vit C No.4 (Super B Complex) 150 Mg Tablet 150 MG PO DAILY ( Reported) Discharge Medications: Prescribed during the patient's preoperative appointment Attending Statement: All documentation reviewed & orders authorized by Dr. Logan Juarez M.D. copies to: Esau Temple MD, Scott PA-C Aug 01, 2016 11:16 copies to: Esau Temple MD, Scott PA-C Aug 01, 2016 11:16
--- NOTE | 2016-08-01 13:56 | NUR ---
Evaluation completed. Please go to "Notes" then click on "Assessments and Notes" (bottom left corner of screen). Then select appropriate discipline tab on top of screen.
--- NOTE | 2016-08-01 14:03 | OP ---
[address] [address] OPERATIVE REPORT PATIENT: PRIMITIVO PARMAR : 1930 MR#: [id number] ADMIT: 07/31/2016 JOB ID: [id number] DATE OF SURGERY: 07/31/2016 PREOPERATIVE DIAGNOSIS(ES): Symptoms lumbar spinal stenosis most severe at the L3-4 and L4-5 levels, left greater than right. POSTOPERATIVE DIAGNOSIS(ES): Symptoms lumbar spinal stenosis most severe at the L3-4 and L4-5 levels, left greater than right. OPERATIONS AND PROCEDURES: 1. METRx microscopic bilateral lumbosacral decompression, approach from the left, L3-4 and L4-5 with lateral recess decompression of the L3, L4, and L5 nerve roots bilaterally. 2. Placement of epidural fat graft obtained from a separate incision. 3. Intraoperative fluoroscopy less than one hour. SURGEON: Logan Juarez MD FURNACE OPERATOR: Toni Cobb PA-C ANESTHESIA: General endotracheal. COMPLICATIONS: None. ESTIMATED BLOOD LOSS: Approximately 150 cc. DRAINS: A #10 REEMA drain. TRANSFUSION: No blood transfusion. TOURNIQUET: No tourniquet SPECIMENS: No specimen. FINDINGS AT TIME OF SURGERY: Severe acquired spinal stenosis at both L4-5 and L3-4 with the 4-5 being the most severe level of stenosis. The patient had very thickened ligamentum flavum. He had evidence of bulging of the disc. No diskectomy was required. No CSF leak or durotomy. INDICATION: This is an 86-year-old gentleman who has been having progressive neurogenic claudication symptoms. He has failed conservative measures. He has had epidural steroid injections which provided temporary relief. He subsequently has decided to proceed with surgery after elongated conservative measures. Option of open decompression at three levels versus two level minimal access decompression, patient elected to proceed with the two level decompression and staged procedure if he needs to have 2-3 done at a later time. Indications, risks, and complications of the procedure were explained. Chance for symptomatic improvement would be around 70% at one year. He acknowledged he understood and wanted to proceed. OPERATION/PROCEDURE: The patient was identified in the preop area. The L3-L4, and L4-5 were marked on the patient's back on the left side in the preoperative area. Review of the patient's history examination, medications, allergies, and labs were undertaken. There was no change in the patient's overall health. He was then taken to the operating room where he underwent general endotracheal anesthesia without complication. He was given 2 g of intravenous Ancef. SCDs were placed on the lower extremity. The patient was placed in the prone position on the Isaias frame in flexed position. The patient's extremities were well-padded in position. The lower back was then prepped and draped in the usual sterile fashion for a minimal access decompression. After appropriate prepping and draping, the appropriate time-out in the OR was performed, confirming the patient's name, date of , planned procedure, and presence of appropriate instrumentation. The patient's EN, beta-block, diabetic, and MRSA status was reviewed. Antibiotic administration, DVT prophylaxis, and appropriate imaging on the screen was confirmed. The skilled assistance of the PA, Toni Cobb, was necessary for the successful completion of the case. This was essential for the proper positioning, retraction of the thecal sac and nerve roots, as well as the general safety of the patient. After the time-out was completed, a spinal needle was inserted adjacent to the spinous process of L4-5 on the left side. Intraoperative fluoroscopy was brought into place verifying the 4-5 level which was marked on the skin. The needle was then placed at L3-L4 and then marked on the skin. The needle was removed, and the left paramedian soft tissue was infiltrated with 0.25% Marcaine with epinephrine. After infiltration, a left paramedian incision was made, carried down through the skin and subcutaneous tissues. Subcutaneous fat grafts were obtained. A second incision was made and carried down through the skin and subcutaneous tissue and through the lumbodorsal fascia. Starting at the L4-5 level, sequential dilation was undertaken using the METRx tube until a 22 x 60 mm tube was then placed over the L4-5 disk space on the left. The 4-5 level was verified by Radiology. AP view showed that the operating tube was adjacent to the spinous process of L4 and 5. Fluoroscopy was removed, and the operating microscope was brought into place. The overlying soft tissue was removed using Bovie cautery. A high-speed drill was then used to thin the inferior lamina of L4 and superior lamina of L5. A generous hemilaminotomy was performed with lateral recess decompression of the L4 and L5 nerve roots. There was severe acquired spinal stenosis. Once decompression was completed on the left side, tube was then tilted to the right and decompression of central canal on right side was performed in a similar fashion with lateral recess decompression of the L4 and L5 nerve roots. There was severe acquired spinal stenosis, especially on the left side. There was evidence of bulging of the disk. No diskectomy was required. Once decompression was completed, there was generalized oozing from the bone throughout the case. Hemostasis was achieved using bone wax as well as FloSeal. Tube was then migrated superiorly with removal of the hemilamina of L4. It was undercutting of the opposite lamina of 4 decompression of central canal through the operating tube using a high speed drill, curettes, and Kerrison rongeur. Tube was then migrated to the L3-4 level. Wide decompression was performed on the left side with lateral recess decompression of the L3 and L4 nerve roots. Tube was then tilted to the right with decompression of the central canal and right side decompression of the L3-L4 nerve roots. At that point, the thecal sac appeared to be re-expanding. There appeared to be no significant residual stenosis. Hemostasis was achieved using two-point cautery, Gelfoam, cottonoids, as well as FloSeal. Once hemostasis was achieved, subcutaneous fat graft was replaced at the 3-4 and 4-5 levels followed by Surgicel gauze. Tube was then carefully removed, coagulating any bleeding points. Once the tube was removed, a #10 Icelandic drain was placed deep into the wound, brought out through a separate stab incision, and connected to bulb suction. The fascia was then reapproximated using interrupted 0 Vicryl sutures. The subcutaneous layer was closed using inverted 3-0 Vicryl suture, and the skin was then closed using 4-0 Vicryl suture in a subcuticular fashion. The incision was then dry and clean. Benzoin was applied, followed by Steri-Strips. This was then covered with sterile Telfa dressing and secured using benzoin and paper tape. A drain dressing was applied. The patient was then transferred to a stretcher, awakened, extubated, and taken to the [facility] in stable condition. The patient tolerated the procedure well without any major complications. All sponge and needle counts were correct x3.
--- NOTE | 2016-08-01 14:38 | NUR ---
Social Work Initial Assessment: SW met with patient and at bedside to discuss discharge plan. Patient is a 86 year old male admitted under [facility] for lumbar stenosis with neurogenic claudica. Patient payer as [employer]. Patient PCP as MD Temple. Patient states having no care home disability nor VA benefits. Patient resides with in [place]. Patient pharmacy of choice as [facility]. Patient has previous HHC history. Patient has no previous SNF. Patient has a walker and cane for use at home. Patient has AD and SW encouraged family to bring in. SW discussed HHC recommendations by MD. Patient and states being in agreement to arrangements. [facility] choice list offered and declined. Patient and family choice as [facility]. SW provided access to [facility] and contacted C rep Miguel. STOC to begin 24-48hrs following discharge. No other needs identified at this time. SW to follow. PLAN: Home with HHC via [facility] (access provided). to provide transport via POV. SW to follow. Javier OJEDA Addendum: 08/01/16 at 1449 by MIROSLAVA GO Amended: Links added.
--- NOTE | 2016-08-01 15:39 | NUR ---
MOBILITY Patient worked with therapy x2 today, able to ambulate in room with FWW-CGA. Denies any dizziness or lightheadedness when standing and walking. Denies pain. Good strength and sensation in bilateral LE. Good appetite. REEMA drain with sanguineous output. Continue to monitor with intentional hourly rounding.
--- NOTE | 2016-08-01 17:25 | NUR ---
D/C DRAIN Drain output was 30ml in 6 hrs, received verbal order to d/c jJP drain and discharge patient. Student nurse removed REEMA drain with this LN supervision. Gauze dressing applied. Changed dressing to mid lower back. Student nurse also removed saline lock IV with catheter intact, gauze dressing applied.
--- NOTE | 2016-08-01 17:37 | NUR ---
DISCHARGE Reviewed discharge paperwork with patient and at bedside. Verbalized understanding all restrictions to movement. Has follow up appointment made already for next week. Gave them information regarding home health company arranged to see patient at home. Addendum: 08/01/16 at 1817 by JOSE UGARTE RN Patient transferred into wheelchair and was taken outside to personal vehicle.
== END 2016-08-01 18:17 | disposition home health service (06) ==
LOC: SAS 11:10 → OSC 18:24 → SAS 08-01 18:17
PROVIDERS: ATTEND Neurological Surgery
DX: M48.06 Spinal stenosis, lumbar region (principal); I10 Essential (primary) hypertension; E78.00 Pure hypercholesterolemia, unspecified; M19.90 Unspecified osteoarthritis, unspecified site; H91.90 Unspecified hearing loss, unspecified ear; F41.9 Anxiety disorder, unspecified; Z79.82 Long term (current) use of aspirin
CPT/HCPCS: 20926; 63047; 63048; 72100; 76000; 81000; 87086; 97162; 97530; J0690; J1100; J2370; J2405; J7120

== ENCOUNTER 2016-08-04 15:55 | Inpatient (IN) | payer MEDICARE ==
[~2016-08-04] VITALS: Ht 170.2 cm; Wt 83.7 kg
[~2016-08-04 15:55] MED LIST changes: -Bacitracin 50,000 unit Inj IRRIGATION ONE; -Bupivacaine Liposome 1.3% 20 mL Inj INFILTRATE ONE; -CeFAZolin 2 Gm/50 mL D5W IV Premix IV ONE; -Lactated Ringer's 1,000 ML IV SCH; -Thrombin Powder 5,000 Unit TOPICAL ONE
[2016-08-04 16:05] VITALS: BP 137/92; PULSE 73; RESP 20; O2SAT 94
--- NOTE | 2016-08-04 16:08 | ED.REPORT ---
HPI-General Illness Date of Service Aug 04, 2016 ED Provider: James Oviedo MD Pt is an 86 year old male who had a spinal stenosis on 07/31/2016 who presents to the ED via EMS with concerns for increased dizziness and weakness. He reports that he "doesn't feel like he is progressing like he should be". Pt states that he is able to walk around, but continues to feel uncomfortable. He is controlling his pain with Hydrocodone every 6 hours. Pt's reports that he was taking a large dose previously, but has become too sedated and fell out of bed. Pt reports no difficulty drinking, but admits to decreased appetite and constipation for the past week. He denies dysuria, fevers, abdominal pain, chills, nausea, vomiting or any other symptoms. He reports a history of mild constipation, and admits to taking a stool softener and Miralax. PCP: Dr. Tempel Nursing Notes Stated Complaint: DIZZY,WEAK Chief Complaint: General Complaint Nursing Notes Reviewed: Yes Allergies: Coded Allergies: No Known Allergies (Verified , 08/04/16) Scheduled Aspirin (Aspirin) 81 Mg Tablet 81 MG PO DAILY Finasteride (Finasteride) 5 Mg Tablet 5 MG PO DAILY Gluc Briones/MSM/Magnesium/Vit C (Glucosamine Complex-MSM Cap) 1 Each Capsule 1 EACH PO DAILY Hydrochlorothiazide (Hydrochlorothiazide) 25 Mg Tablet 25 MG PO DAILY Lovastatin (Lovastatin) 20 Mg Tablet 20 MG PO HS Mirtazapine (Mirtazapine) 15 Mg Tablet 15 MG PO HS Tamsulosin (Flomax) 0.4 Mg Capsule 0.4 MG PO DAILY Trazodone (Trazodone) 100 Mg Tablet 50 MG PO HS Venlafaxine (Venlafaxine) 37.5 Mg Tablet 37.5 MG PO BIDWM Vitamin B Complex & Vit C No.4 (Super B Complex) 150 Mg Tablet 150 MG PO DAILY Scheduled PRN Docusate Sodium (Docusate Sodium) 250 Mg Capsule 250 MG PO BID PRN PRN For Constipation Hydrocodone-Acetaminophen 10-325 mg (Hydrocodone-Acetaminophen 10-325 mg) 1 Each Tablet 1-2 TABLET PO Q4H PRN PRN For Pain Lorazepam (Lorazepam) 1 Mg Tablet 1 MG PO HS PRN PRN For Insomnia General Time Seen by MD: 16:02 Chief Complaint Weakness Hx Obtained From: Patient Arrived By: Ambulance Sudden in Onset?: Yes Onset Occurred: 1 week ago Symptom Duration: Since onset Location: : Back Quality: Painful Severity: Current: Mild Severity: Maximum: Mild Similar Sx Previous: Yes Past Medical History Past Medical History "Chronic post-nasal drip" Past Surgical History Spinal stenosis Ambulatory Status Independent Review of Systems Full Review of Systems Constitutional: Reports: Weakness - generalized, Denies: Chills, Fever, Malaise Respiratory: Denies: Shortness of breath, Wheezing Cardiovascular: Denies: Chest pain, Syncope GI: Reports: Constipation, Denies: Abdominal pain, Nausea, Vomiting Male: Denies Dysuria, Denies Flank pain, Denies Urinary frequency, Denies Urinary urgency Musculoskeletal: Reports: Back pain, Denies: Neck pain Skin: Denies Diaphoresis, Denies Swelling Neurologic: Reports: Weakness, Denies: Change LOC, Dizziness, Headache, Numbness, Syncope Complete sys rev & neg: except as marked. Physical Exam Vital Signs Vital Signs Date Time Temp Pulse Resp B/P Pulse Ox O2 Delivery O2 Flow Rate FiO2 08/04/16 19:06 74 18 160/80 94 Room Air 08/04/16 16:05 37.3 73 20 137/92 94 Room Air Initial VS: Reviewed General/Constitutional: Well-developed, Well-nourished Head / Eyes: Atraumatic, Normocephalic, PERRL Neck: Supple, Non-tender, Full range of motion Respiratory: Breath sounds normal, Clear to auscultation, No respiratory distress Cardiovascular: Regular rate & rhythm, Heart sounds normal, Intact distal pulses Abdomen / GI: Soft, Non-tender, No guarding, No rebound, No distention Skin: Warm, Dry, No cyanosis Neurologic: Alert, Oriented, Nonfocal Psychiatric: Mood/affect normal, Behavior normal, Normal thought content ENT: Atraumatic, Airway patent, Pharynx NL Mouth: Positive: Mucous membranes dry Back: Atraumatic Dressing on back is intact no erythema Soft, non-tender Guaiac positive brown stool Neurologic: Oriented X3, Speech NL, No motor deficits, No sensory deficits Normal sphincter tone Interpretation & Diagnostics Lab Results Interpretation Result Diagram: 08/04/16 1730 08/04/16 1730 Test 08/04/16 17:30 08/04/16 22:10 White Blood Count 12.8th/mm3 (3.8-10.1) Red Blood Count 4.09mil/mm3 (4.40-5.80) Hemoglobin 13.1g/dL (13.8-17.2) Hematocrit 38.1% (41.0-50.0) Mean Corpuscular Volume 93.2fL (81-100) Mean Corpuscular Hemoglobin 32.0pg (27.0-35.0) Mean Corpuscular Hemoglobin Concent 34.4% (32.0-37.0) Red Cell Distribution Width 12.8% (12.3-15.4) Platelet Count 258bil/L (150-400) Neutrophils (%) (Auto) 66.8% (40-74) Lymphocytes (%) (Auto) 18.7% (14-46) Monocytes (%) (Auto) 13.8% (4-12) Eosinophils (%) (Auto) 0.3% (0-5) Basophils (%) (Auto) 0.2% (0-3) Sodium Level 134mEq/L (134-144) Potassium Level 3.3mEq/L (3.5-5.2) Chloride Level 92mEq/L (97-108) Carbon Dioxide Level 27mmol/L (18-29) Blood Urea Nitrogen 18mg/dL (8-27) Creatinine 0.63mg/dL (0.76-1.27) Estimat Glomerular Filtration Rate 128mL/min (>59) Glucose Level 117mg/dL (60-99) Calcium Level 9.0mg/dL (8.5-10.1) Magnesium Level 2.3mg/dL (1.6-2.6) Total Bilirubin 0.9mg/dL (0.0-1.2) Aspartate Amino Transf (AST/SGOT) 38U/L (0-50) Alanine Aminotransferase (ALT/SGPT) 26U/L (0-44) Alkaline Phosphatase 60U/L (25-160) Troponin T < 0.010ug/L (0.0-0.011) Total Protein 7.3g/dL (6.4-8.4) Albumin 3.8g/dL (3.4-5.0) Hold Jackson Top Tube Received (Received) Urine Color Dark yellow (YELLOW) Urine Appearance Clear (CLEAR,HAZY) Urine pH 6.5 (5.0-8.0) Urine Specific [place] 1.020 (1.003-1.035) Urine Protein Negativemg/dL (NEG,TRACE) Urine Glucose (UA) Negativemg/dL (NEGATIVE) Urine Ketones Tracemg/dL (NEGATIVE) Urine Occult Blood Trace (NEGATIVE) Urine Nitrite Negative (NEGATIVE) Urine Bilirubin Negative (NEGATIVE) Urine Urobilinogen Normalmg/dL (NORMAL) Urine Leukocyte Esterase Negative (NEGATIVE) Urine RBC 0-2/hpf (0-2) Urine WBC 0-5/hpf (0-5) Urine Epithelial Cells Occasional/hpf (NONE-MOD) Urine Crystals None seen (NONE SEEN) Urine Bacteria None/hpf (NONE-FEW) Urine Hyaline Casts None/lpf (NONE) Urine Granular Casts None seen (NONE SEEN) Urine Waxy Casts None seen (NONE SEEN) Urine Red Blood Cell Casts None seen (NONE SEEN) Urine White Blood Cell Casts None seen (NONE SEEN) Urine Mucus None seen (None Seen) Urine Trichomonas None seen (NONE SEEN) Urine Yeast None (NONE SEEN) Urine Culture Reflexed Not indicated ECG Interpretation ECG Interpretation: SR - 69 1st degree AV Block No change from prior dated 07/27/2016 Time: 16:54 Interpreted by: ED physician X-Ray Chest Interpretation Chest Xray Interpretation: IMPRESSION: No acute cardiopulmonary disease. Dictated by: Armando Cruz M.D. on 08/04/2016 at 19:16 Interpretation / Wet Read by: Interpret - Radiologist Re-Eval/Medical Decision Med Decision/Clinical Course Elderly male status post spinal surgery 07/31. Not been out of bed since he got home although her documents ambulation prior to discharge. Was dehydrated on arrival after 2 L of normal saline with replacement of potassium which was also low is still too weak to walk. The mild leukocytosis, urinalysis is still pending but otherwise I do not find evidence for an acute infection. Is full code. Be admitted to the hospitalist service for physical therapy, neurosurgery is available for telephone consultation if necessary. Source of Hx: Old records Time of Eval: 20:04 Re-Evaluation/Progress Note: Pt is rechecked and informed of the plan to road test him prior to deciding on whether or not we are able to discharge him today. He understands and agrees, all questions are addressed. Time of Eval: 22:38 Re-Evaluation/Progress Note: Pt failed his road test and is informed of the plan to admit him at this time. He understands and agrees, all questions are addressed. Consultation #1: Referral / Consult Name: SydnieshaunaYaimashruthi Gonzalez DO Consulted With: Hospitalist Call Returned at: 22:57 Aerodynamics Engineer: Will see patient, Agrees with plan, Accepts admit Consultation #2: Referral / Consult Name: Ramesh Fox MD Consulted With: Neurology Call Returned at: 22:47 Aerodynamics Engineer: Will see patient, Agrees with eval, Agrees with plan Counseled Regarding: Diagnosis, Lab results, Need for follow-up, When/why to return to ED Discharge & Departure Primary Impression: General weakness Additional Impressions: Dehydration Hyperkalemia Constipation Constipation type: unspecified constipation type Qualified Code: K59.00 - Constipation, unspecified Disposition: Home Discharge Condition All VS Reviewed: Yes Condition: Stable Referrals: Esau Temple MD (PCP) Judeibanne Attestation Portions of this note were transcribed by Serena Enriquez. I, Dr. Oviedo personally performed the history, physical exam and medical decision-making; I reviewed and confirmed the accuracy of the information in the transcribed note. Signed by: Catalina Peng, 08/04/2016 [id number] copies to: Esau Temple MD, Donald L MD Aug 04, 2016 16:08 MARY ENRIQUEZ Aug 04, 2016 16:44
[2016-08-04] MEDS ORDERED: 0.9% Sodium Chloride 1,000 ML IV ONE ×2 (16:47→18:45)
[2016-08-04] MEDS ORDERED: Ondansetron 2 mg/mL 2 mL Inj IV PRN (16:50)
[2016-08-04 17:59] LABS: BASOPHILS % (AUTO) 0.2 % (0-3); EOSINOPHILS % (AUTO) 0.3 % (0-5); MONOCYTES % (AUTO) 13.8 % (4-12); Mean Corpuscular Volume 93.2 fL (81-100); NEUTROPHILS % (AUTO) 66.8 % (40-74); Platelet Count 258 bil/L (150-400)
[2016-08-04 18:26] LABS: TROPONIN T < 0.010 ug/L (0.0-0.011)
[2016-08-04 18:32] LABS: Magnesium 2.3 mg/dL (1.6-2.6)
[2016-08-04] MEDS ORDERED: Potassium Chloride 20 mEq/15 mL 15mL Oral Soln PO ONE (18:45)
[2016-08-04 19:06] VITALS: BP 160/80; PULSE 74; RESP 18; O2SAT 94
--- NOTE | 2016-08-04 19:18 | DRSVH ---
PROCEDURE: X-RAY CHEST ONE VIEW, PORTABLE ([id number]) INDICATIONS: weakness and leukocytosis TECHNIQUE: One view of the chest was acquired. COMPARISON: [facility], , CHEST 1 VIEW, 11/29/2013, 16:02. FINDINGS: Surgical changes and devices: None. Lungs and pleura: No pleural effusions or pneumothorax. Lungs are clear. Mediastinum: Mediastinal contours appear normal. Heart size is normal. Bones and chest wall: No suspicious bony lesions. Overlying soft tissues appear unremarkable. IMPRESSION: No acute cardiopulmonary disease. Dictated by: Armando Cruz M.D. on 08/04/2016 at 19:16 Approved by: Armando Cruz M.D. on 08/04/2016 at 19:17
[2016-08-04] MEDS ORDERED: HYDROcodone-APAP 5-325 mg Tablet PO ONE (20:35)
[2016-08-04 23:00] LABS: APPEARANCE,URINE CLEAR (CLEAR,HAZY); COLOR,URINE DARK YELLOW (YELLOW); OCCULT BLOOD,URINE TRACE (NEGATIVE); PH,URINE 6.5 (5.0-8.0); UROBILINOGEN,URINE NORMAL (NORMAL)
[2016-08-04] MEDS ORDERED: Alum-Mag Hydrox-Simeth 30 mL Suspension PO PRN (23:00)
[2016-08-04] MEDS ORDERED: Ondansetron 2 mg/mL 2 mL Inj IVPUSH PRN (23:00)
[2016-08-04] MEDS ORDERED: Polyethylene Glycol (PEG) 17 Gm Powder PO PRN (23:00)
[2016-08-05] VITALS (8 sets, daily range): BP systolic 156–185; BP diastolic 72–91; PULSE 67–90; RESP 16–20; O2SAT 94–96
[2016-08-05] MEDS: Lactated Ringer's 1,000 ML IV SCH ×2 (03:14→13:33)
[2016-08-05] MEDS ORDERED: Sodium Biphos-Phos 133 mL Enema RECTAL PRN (03:15)
--- NOTE | 2016-08-05 03:15 | PCM.HPMED ---
Subjective Date of Service Aug 05, 2016 Primary Provider: Admitting Physician: Yaima Moss DO Primary Care Physician: Esau Temple MD Attending Physician: Yaima Moss DO Chief Complaint: increased dizziness and weakness History of Present Illness: Pt is an 86 year old male with PMH remarkable for depression, BPH, and HTN and had recently undergone a spinal stenosis decompression on 07/31/2016 who presents to the ED via EMS with concerns for increased dizziness and weakness. He reports that the dizziness is typically only upon standing only and is described as light headedness and not vertigo. When asked about pain symptoms that patient denies back pain but states that his right shoulder is hurting. He reports that he "doesn't feel like he is progressing like he should be". Pt states that he is able to walk around, but continues to feel uncomfortable. He is controlling his pain with Hydrocodone every 6 hours. Pt's reports that he was taking a large dose previously, but has become too sedated and fell out of bed. Pt reports some minor difficulty swallowing liquids, but admits to decreased appetite and constipation for the past week. He states that he has had a nonproductive cough recently. He denies dysuria, fevers, abdominal pain, chills, nausea, vomiting or any other symptoms. He reports a history of mild constipation, and admits to taking a stool softener and having an enema performed recently. He denies any sick contacts except his who has had a cough. Review of Systems: a comprehensive review of systems was obtained and all are negative except for what is included in the HPI Allergies Coded Allergies: No Known Allergies (Verified , 08/04/16) Home Medications ASA 81mg daily docusate 250mg finasteride 5mg daily HCTZ Vicodin 5-325mg q6hrs Lorazepam 1mg PRN Lovastatin Mirtazapine 15mg HS Tamsulosin 0.4mg Trazadone 100mg Venlafaxine 75mg BID PMH Depression Anxiety HTN BPH Lumbar Spinal Stenosis Surgical History Bilateral lumbar segmental decompression L3-4 L4-5 bilateral partial knee arthroplasty right shoulder surgery Family History mother had an PR in her late 70s Father had an PR or stroke in his 60s Social History Occupation: retired java lead engineer Hx Alcohol Use: Yes Alcoholic Drinks Per Day: 1 martini daily Hx Substance Use: No Hx Tobacco Use: No Smoking Status: Former Smoker (quit in 1964) Living Arrangement: with Family Exam Vital Signs Vital Sign - Last Date Time Temp Pulse Resp B/P Pulse Ox O2 Delivery O2 Flow Rate FiO2 08/05/16 00:23 37.4 71 20 166/81 95 Room Air Intake and Output 08/04/16 08/04/16 08/05/16 Cumulative From/Thru 15:00 23:00 07:00 08/04/16 16:05 - 08/05/16 00:24 Intake Total 1000 ml 1000 ml Balance 1000 ml 1000 ml Intake IV Total 1000 ml 1000 ml Exam General: elderly patient lying comfortably in bed, appearing stated age in no acute distress, with a mild essential tremor noted HEENT: Normocephalic, atraumatic. External ears without defect. Pupils equal, round, and reactive to light and accommodation. Anicteric sclerae, moist conjunctivae. Oropharynx with moist mucosa and post nasal drip Neck: Supple with full range of motion. No jugular venous distension. No bruits. No lymphadenopathy or thyromegaly. Cardiovascular: RRR, without murmurs, rubs, or gallops appreciated Pulmonary: Clear to auscultation bilaterally without wheezes, rales or rhonchi. Normal respiratory effort with no use of accessory muscles on room air Abdomen: Bowel tones present. Soft, nontender, nondistended. No hepatosplenomegaly or masses appreciated. Back: Clean bandage covering incision site without fluctuance or pain on palpation of the site, no erythema or drainage noted Extremities: pulses intact at radial and dorsalis pedis; No clubbing, cyanosis, edema, or lymphadenopathy appreciated. Skin: Warm and dry; no rash, ulcers, or subcutaneous nodules appreciated. 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 Dictated by: Armando Cruz M.D. on 08/04/2016 at 19:16 Approved by: Armando Cruz M.D. on 08/04/2016 at 19:17 Assessment & Plan Pt is an 86 year old male with PMH remarkable for depression, BPH, and HTN and had recently undergone a spinal stenosis decompression on 07/31/2016 who presents to the ED via EMS with concerns for increased dizziness and weakness. 1. Likely Acute Dehydration - BUN 18 Cr 0.6 with a ration greater than 20 likely pre-renal dehydration - Cr 0.6 is consistent with Cr prior to surgery on 07/27 - Patient has received NS bolus and currently on LR 100ml/hr - patient has difficulty swallowing thin liquids, NPO currently with swallow study in AM 2. acute Leukocytosis - procalcitonin ordered and Viral PCR of nasal swab ordered - no fever, tachycardia, tachypnea on vitals - CXR negative for pneumonia - UA negative for UTI - surgical site has clean dry bandage without drainage, fluctuance, erythema no signs of infection 3. Lumbar Stenosis, chronic - Lumbar spinal decompression surgery on 07/31 - Morphine 1mg IV q 4hr available PRN until patient has swallow evaluation 4. acute dysphagia - Swallow Study in AM 5. Constipation, acute - bowel regimen available including Dulcolax suppository and fleets enema PRN 6. hypokalemia, acute - given KCL PO in ED - LR at 100ml/hr - BMP in AM GI prophylaxis - Pepcid 10mg q 12 DVT prophylaxis - Heparin 5000 q 8 Code Status: Full Disposition: Patient is admitted to observation status with less than two midnight stay. Social work and Physical therapy following for discharge planning. Pain Evaluation: Adequate Pain Control GI Prophylaxis: H2 harish VTE Prophylaxis Indicated: Meets Criteria for Anticoag Therapy VTE Prophylaxis: Sub-Q Heparin (Unfractionated), SCDs VTE Mechanical Devices: Intermittant Pneumatic CD Resuscitation Status: CPR: Attempt Resuscitation Attending Statement The patient was seen and examined together with house staff on 08/05/2016 and I agree with the history, exam and plan as outlined in the note above. EDGAR CHESTER DO Aug 05, 2016 01:49 Yaima Moss DO Aug 05, 2016 03:57
--- NOTE | 2016-08-05 06:25 | NUR ---
Admit to floor admitted with generalized weakness - unable to ambulate. Spinal surgery last week with dressing on low back. Denies pain at rest. PT eval ordered. A/0 X2 but forgetful. Originally placed on heart healthy diet but was observed with delayed swallow and coughing when drinking water. Diet changed to NPO and swallow eval ordered. Low grade temp of 99.3 this morning and diaphoretic. Denies chills or dysuria. Lung springer clear. Admit completed.
[2016-08-05 08:23] LABS: BASOPHILS % (AUTO) 0.2 % (0-3); EOSINOPHILS % (AUTO) 1.1 % (0-5); MONOCYTES % (AUTO) 13.8 % (4-12); Mean Corpuscular Hemoglobin 31.7 pg (27.0-35.0); Mean Corpuscular Volume 94.4 fL (81-100); NEUTROPHILS % (AUTO) 65.3 % (40-74); Platelet Count 240 bil/L (150-400)
[2016-08-05] MEDS: Heparin 5,000 Unit/mL Inj SUBQ SCH ×2 (08:50→16:47)
[2016-08-05] MEDS: Famotidine Inj 20 MG in IV Premix 1 EACH IV SCH ×2 (08:51→21:14)
--- NOTE | 2016-08-05 10:41 | NUR ---
Evaluation completed. Please go to "Notes" then click on "Assessments and Notes" (bottom left corner of screen). Then select appropriate discipline tab on top of screen.
--- NOTE | 2016-08-05 12:11 | NUR ---
Case Managemet: RUBÉN delivered and signed. Original placed in chart. Copy left at bedside. Jailyn Traylor RN
--- NOTE | 2016-08-05 12:27 | NUR ---
Orthostatic VS Orthostatics completed. charted in vital flow sheet. unable to obtain standing VS. patient very unstable on feet requiring 2 person max assist. notified.
--- NOTE | 2016-08-05 14:40 | NUR ---
Social Work: Initial Assessment Data & Assessment: EMR Reviewed. See Initial Assessment. Patient is a 86 y/o male that admitted due to generalized weakness. Patient is a re-admit. SW met with patient and patient's to complete initial assessment, review SW role and discuss DC planning. Patient was very forgetful. Patient's NOK/DPOA is Ashwini De La Vega [phone]-. Patient's DPOA is on his paper chart. Patient's PCP is Esau Feng. Patient's insurance is [employer]. Patient does not have LTC or VA benefits. Patient has never been to a SNF. Patient lives in a single level home with his and there is two steps to enter. Patient has a Walker and was on service with Hilda SAHU. SW notified patient and patient that PT recommended SNF as the discharge plan. SW provided them with a list of SNF. They chose [facility]. Patient will give [facility] access and authorization will be requested from [facility]. SW will continue to follow. Plan: patient will discharge to [facility] if authorized by [facility]. SW chloe continue to follow. Adi Larkin LMSW, PAPI Addendum: 08/05/16 at 1450 by ADI LARKIN Amended: Links added.
--- NOTE | 2016-08-05 16:28 | PCM.PNMED ---
Subjective Date of Service Aug 05, 2016 Subjective denies any new issues/complaints. denies any pain Exam Vital Signs Vital Sign - Last Date Time Temp Pulse Resp B/P Pulse Ox O2 Delivery O2 Flow Rate FiO2 08/05/16 16:07 38.8 76 18 177/88 94 Room Air Intake and Output 08/04/16 08/04/16 08/05/16 Cumulative From/Thru 15:00 23:00 07:00 08/04/16 16:05 - 08/05/16 06:23 Intake Total 1000 ml 245 ml 1245 ml Balance 1000 ml 245 ml 1245 ml IV Total 1000 ml 245 ml 1245 ml General: Alert, Oriented X3, Cooperative, No Acute Distress Eyes: Scleral Anicteric Mouth: Mucous Membr Moist/[place] Neck: Supple Chest & Lungs: Chest Wall Normal, Clear to auscultation & percussion Cardiovascular: Regular Rate/Rhythm Pulses: NL carotid, radial, femoral, DP, PT Abdomen: Non-tender, Non-distended, Normoactive bowel tones, Soft Extremities: No cyanosis/clubbing/edma bilat Neurological: Grossly Neurologically Intact, Normal Speech IVs and Medications Medications Reviewed: Medications were reviewed in detail Lab and Diagnostics Result Diagram: 08/05/16 0512 08/05/16 0512 X-Rays, CTs and MRIs X-RAY CHEST ONE VIEW, PORTABLE IMPRESSION: No acute cardiopulmonary disease. Dictated by: Armando Cruz M.D. on 08/04/2016 at 19:16 Approved by: Armando Cruz M.D. on 08/04/2016 at 19:17 Assessment & Plan 86 year old male with PMH remarkable for depression, BPH, and HTN and had recently undergone a spinal stenosis decompression on 07/31/2016 who presents to the ED via EMS with concerns for increased dizziness and weakness. # Acute leukocytosis, poa and ongoing. Fever, not poa (spiked on 08/05) - blood culture x 2 - f/u pending resp PCR - check lumbar MRI r/o source of infection - check MRSA screen - CXR negative for pneumonia - UA negative - surgical site has clean dry bandage without drainage, fluctuance, erythema no signs of infection - procalcitonin negative. will hold off on Abx for now # Initial impression of likely acute Dehydration - c/w IVF - difficulty swallowing. f/u speech eval - c/w supportive care # Lumbar Stenosis, chronic - Lumbar spinal decompression surgery on 07/31 - c/w supportive care - MRI as noted above # acute dysphagia - Swallow Study # Constipation, acute. poa. Resolved - bowel regimen available including Dulcolax suppository and fleets enema PRN # Acute hypokalemia, poa - Resolved - f/u Dispo: 2-3 days pending fever workup and improved strength GI Prophylaxis: H2 harish VTE Prophylaxis: Sub-Q Heparin (Unfractionated), SCDs VTE Mechanical Devices: Intermittant Pneumatic CD Resuscitation Status: CPR: Attempt Resuscitation Time spent 35 min Bobby Jackson Aug 05, 2016 16:28
[2016-08-05] MEDS: Dextrose 5% 0.45% NaCl 1,000 ML IV SCH (16:46)
--- NOTE | 2016-08-05 17:49 | NUR ---
Fever/Worsening confusion at 1600hrs today patient spiked fever 38.8, reports that patient's confusion is worsening over last couple hours; reports hallucinations. Dr Jackson paged. new orders received. PO Tylenol is bring fever down. MRSA swab sent, Blood cultures drawn, and MRI of low back (surgical site) ordered. per Manuel, okay to wait until tomorrow morning for MRI. patient remains NPO for aspiration risk until swallow evaluation tomorrow. patient very unsteady on feet 2 person max assist to transfer to [facility]. [place]/bed alarm on. continue to monitor.
[2016-08-06] MEDS: Heparin 5,000 Unit/mL Inj SUBQ SCH ×3 (00:50→17:44)
--- NOTE | 2016-08-06 03:48 | NUR ---
PSYCH; found crouched at the bedside stating trying to find his son. Alem alarm sounding and bed alarm. Confused. Assisted back to bed. Reoriented. 3 side rails up as before and alem alarm placed. Plan; request sitter. Addendum: 08/06/16 at 0430 by FIDEL CASTILLO RN pt did not fall.
[2016-08-06] MEDS: Dextrose 5% 0.45% NaCl 1,000 ML IV SCH ×2 (04:18→08:22)
--- NOTE | 2016-08-06 04:50 | NUR ---
ACTIVITY; 2 assist up to chair while bed linen changed. Inc. large amount of urine.
[2016-08-06 05:20] VITALS: BP 168/65; PULSE 68; RESP 16; O2SAT 95
[2016-08-06 07:32] LABS: BASOPHILS % (AUTO) 0.1 % (0-3); EOSINOPHILS % (AUTO) 0 % (0-5); MONOCYTES % (AUTO) 11.3 % (4-12); Mean Corpuscular Hemoglobin 31.2 pg (27.0-35.0); Mean Corpuscular Volume 92.5 fL (81-100); NEUTROPHILS % (AUTO) 77.1 % (40-74); Platelet Count 269 bil/L (150-400)
[2016-08-06] MEDS: Famotidine Inj 20 MG in IV Premix 1 EACH IV SCH ×2 (08:26→22:17)
--- NOTE | 2016-08-06 08:53 | NUR ---
Called [facility] transfer center to have patient assigned to family service caseworker as soon as possible for fci review. Updated [employer]
--- NOTE | 2016-08-06 14:10 | PCM.PNSURG ---
Subjective Date of Service: Aug 06, 2016 Date of Service: Aug 06, 2016 Visit Information: Reason for Visit Generalized Weakness Surgery/Surgery Date Post-Op Day # Date of Admission: Aug 04, 2016 at 23:29 Hospital Day # Subjective: Rafiq De La Vega is a 86 year old male who presents on the date 08/06/2016 returning to Hospital under Hospitalists Attending Dr. Jackson for failure to thrive & dehydrationon post operative day #6 status post Metrx minimal access surgery involving bilateral lumbar segmental decompression at the L3-4 & L4-5 levels with approach from the left & placement of epidural fat graft from separate incision. The patient's postoperative outpatient with the bed hospital course was within normal limits with discharge on postop day #1 in good condition. The patient's reports that on postop day #2 the patient suffered a near fall out of bed and subsequent worsening fatigue, confusion, & lightheadedness with standing. Home Health RN recommended on postop day #3 if symptoms do not improve to take the patient to the emergency department over the weekend. Reported continued difficulty OOB yesterday & positive blood culture today with slightly elevated blood cell counts, current afebrile, & confused condition. Dr. Jackson is planning on having the patient undergo a postoperative lumbar spinal MRI with and without contrast today & was notified that this will likely show postoperative fluid collection. The patient has recognized improvement of his neurogenic claudication & related preoperative symptomatology in his lower extremities. The patient denies headache, severe, sore throat, chest pain, shortness or breath, abdominal pain, nausea, vomiting, constipation, diarrhea, or any other new onset and location of pain, weakness, numbness or paresthesias aside from the minimal surgical site pain. Patient also denies bowel or bladder dysfunction. Objective Objective This is a well developed, well nourished, male who is alert, cooperative, and appears to be in no acute distress with pleasant affect with mild-moderate confusion. Exam of the head is normocephalic. PERRL, EOMI, without facial droop, hearing grossly intact, nostrils patent, oral cavity and pharynx normal. Voice is within normal limits Exam or the heart reveals regular rate and rhythm without audible murmurs The lungs are clear to auscultation bilaterally The abdomen is non- tender and non-distended Exam of the lumbar surgical wound reveals that it is clean, dry, and intact; without signs of infection, inflammation, and/or hematoma. Gross exam of the extremities reveals strength, reflexes, & sensation are grossly intact within the patient's normal baseline limits without any significant appreciable deficits. Intake and Output- Last 8 Hour 08/06/16 Cumulative From/Thru 07:00 08/04/16 16:05 - 08/06/16 06:57 Intake Total 445 ml 2523 ml Output Total 540 ml 965 ml Balance -95 ml 1558 ml Intake Oral 0 ml 0 ml IV Total 445 ml 2523 ml Output Urine Total 540 ml 965 ml # Voids 2 2 # Bowel Movements 1 3 Result Diagram: 08/06/16 0719 08/06/16718 Assessment & Plan Impression Metrx minimal access surgery involving bilateral lumbar segmental decompression at the L3-4 & L4-5 levels with approach from the left & placement of epidural fat graft from separate incision postop day #6 with postoperative medication induced encephalopathy vs. acute mild delirium of unknown origin. Based on the patient's history and physical presentation he does not have a significant postoperative surgical wound infection. Problems: VTE Prophylaxis: Sub-Q Heparin (Unfractionated), SCDs Resuscitation Status: CPR: Attempt Resuscitation Attending Statement: 1. Continue Attending Hospitalist evaluation & treatment. 2. Dr. Logan Juarez M.D. Will review the patient's postoperative lumbar spine MRI with and without contrast. 3. Physical therapy to ambulate AD[facility] with fall precautions. 4. We will continue to follow the patient's hospital course. Toni Cobb PA-C Aug 06, 2016 14:10
--- NOTE | 2016-08-06 15:13 | NUR ---
Evaluation completed. Please go to "Notes" then click on "Assessments and Notes" (bottom left corner of screen). Then select appropriate discipline tab on top of screen.
--- NOTE | 2016-08-06 15:32 | DRSVH ---
PROCEDURE: MRI LUMBAR SPINE WITH AND WITHOUT CONTRAST ([id number]) INDICATIONS: Fever, recent back surgery TECHNIQUE: Noncontrast sagittal T1 spin echo and T2 fast spin echo, sagittal STIR, axial T1 and T2 fast spin ech o through the lumbar spine. In cases with scoliosis, additional coronal T2 fast spin echo may be per formed. After the administration of contrast, sagittal and axial T1 spin echo with fat saturation th rough the lumbar spine. COMPARISON: [facility], CR, XR LUMBAR SPINE 2 OR 3VW, 07/31/2016, 15:06. FINDINGS: Image quality: Image quality is severely limited by patient motion artifact. Alignment and curvature: There is normal bony alignment. Marrow: Postsurgical changes compatible with L4 laminectomy are noted. Marrow is of normal overall s ignal. No acute vertebral body compression fractures. No suspicious marrow enhancement. Spinal cord: Conus medullaris terminates at the L1-2 level. Visualized spinal cord demonstrates nor mal signal, without suspicious enhancement. Paraspinous soft tissues: No paravertebral masses or abnormal enhancement. L1-L2: Loss of the signal. Mild, diffuse disc bulge. Mild narrowing the central canal secondary to di sease. Moderate bilateral neural foraminal narrowing secondary to disc disease. No neural impingement . L2-L3: Loss of disc signal. Moderate, diffuse disc bulge. Moderate facet and moderate ligamentum flav um hypertrophy. Severe central stenosis secondary to disc disease and posterior element hypertrophy. Moderate bilateral neural foraminal narrowing secondary to disc and facet disease. L3-L4: Loss of disc signal. Mild, diffuse disc bulge. Moderate bilateral facet hypertrophy. Posterior epidural fluid collection is noted which extends into the L4 laminotomy site. Fluid collection has e nhancing periphery. Fluid collection maybe causing severe central stenosis with mass effect on the tr aversing nerves of the cauda equina. Fluid collection may represent a postsurgical seroma, abscess or pseudomeningocele. Severe bilateral neuroforaminal narrowing secondary to disc and facet disease. L4-L5: Loss of disc signal and height. Moderate, diffuse disc bulge. Moderate bilateral facet hypertr ophy. No definite central stenosis. Severe bilateral neuroforaminal narrowing secondary to disc and f acet disease. L5-S1: Loss of disc signal and height. Mild, diffuse associated moderate bilateral facet hypertrophy. Mild narrowing the central canal secondary to disc disease. Severe bilateral neuroforaminal narrowin g degenerative disc and facet disease. IMPRESSION: 1. Postsurgical changes compatible with L4 laminectomy. 2. Fluid collection in the posterior epidural space level the L3-L4 disc and L4 vertebral body extend ing into the L4 laminectomy site is noted. Fluid collection are present a postsurgical seroma, pseudo meningocele or abscess. Please correlate clinical laboratory data. 3. L3-L4 posterior epidural fluid collection maybe causing local mass effect with impingement of the traversing nerve roots of the cauda equina. 4. Multilevel degenerative disease. 5. Multilevel facet arthropathy. 6. Severe L2-L3 central canal stenosis. 7. Severe bilateral L3-L4, L4-L5 and L5-S1 neuroforaminal narrowing. 8. Image quality severely limited by patient motion. 9. Findings telephoned to on at 1525 hrs. Due to limitations of the study to de finitely diagnose epidural abscess, Dr. Jackson plans to repeat the MRI lumbar spine on 08/07/16. Dictated by: Trudy Blandon MD, PhD on 08/06/2016 at 15:05 Approved by: Trudy Blandon MD, PhD on 08/06/2016 at 15:31
[2016-08-06] MEDS ORDERED: CeFAZolin Inj 2 GM in IV Premix 1 EACH IV SCH (16:30)
[2016-08-06] MEDS: cefTRIAXone Inj 2,000 MG in Dextrose 5% Minibag Plus 50 ML IV SCH (18:20)
--- NOTE | 2016-08-06 18:25 | NUR ---
Mentation/Bowels patient very confused alert to self only and impulsive today. he's pulled out 2 IV lines, one before shift change this am and the second was later morning. has been at bedside all day attempting to reorient with little success. patient has had 4 loose, incontinent stools today. continue to monitor.
[2016-08-06 18:34] VITALS: BP 168/82; PULSE 79; RESP 18; O2SAT 96
--- NOTE | 2016-08-06 18:38 | PCM.PNMED ---
Subjective Date of Service Aug 06, 2016 Subjective reports new onset diarrhea and generalized malaise. denies any pain Exam Vital Signs Vital Sign - Last Date Time Temp Pulse Resp B/P Pulse Ox O2 Delivery O2 Flow Rate FiO2 08/06/16 16:21 Room Air 08/06/16 05:20 36.9 68 16 168/65 95 Intake and Output 08/05/16 08/05/16 08/06/16 Cumulative From/Thru 15:00 23:00 07:00 08/04/16 16:05 - 08/06/16 06:57 Intake Total 0 ml 833 ml 445 ml 2523 ml Output Total 25 ml 400 ml 540 ml 965 ml Balance -25 ml 433 ml -95 ml 1558 ml Intake Oral 0 ml 0 ml 0 ml 0 ml IV Total 833 ml 445 ml 2523 ml Output Urine Total 25 ml 400 ml 540 ml 965 ml # Voids 2 2 # Bowel Movements 2 1 3 Exam General: Alert, Oriented X3, Cooperative, No Acute Distress Eyes: Scleral Anicteric Mouth: Mucous Membr Moist/[place] Neck: Supple Chest & Lungs: Chest Wall Normal, Clear to auscultation bilat Cardiovascular: Regular Rate/Rhythm Pulses: NL carotid, radial, femoral, DP, PT Abdomen: Non-tender, Non-distended, Normoactive bowel tones, Soft Extremities: No cyanosis/clubbing/edema bilat Neurological: Grossly Neurologically Intact, Normal Speech IVs and Medications Medications Reviewed: Medications were reviewed in detail Lab and Diagnostics Result Diagram: 08/06/16 0708/06/16 0719 X-Rays, CTs and MRIs X-RAY CHEST ONE VIEW, PORTABLE IMPRESSION: No acute cardiopulmonary disease. Dictated by: Armando Cruz M.D. on 08/04/2016 at 19:16 Approved by: Armando Cruz M.D. on 08/04/2016 at 19:17 Assessment & Plan 86 year old male with PMH remarkable for depression, BPH, and HTN and had recently undergone a spinal stenosis decompression on 07/31/2016 who presents to the ED via EMS with concerns for increased dizziness and weakness. # Acute leukocytosis, poa and ongoing. Fever, not poa (spiked on 08/05) - blood culture x 2 - f/u pending resp PCR - check lumbar MRI r/o source of infection - f/u MRSA screen - CXR negative for pneumonia - UA negative - surgical site has clean dry bandage without drainage, fluctuance, erythema no signs of infection - procalcitonin negative. - ID consulted. will f/u w/ recs - appreciate neurosurgery consult as well. will f/u w/ recs # Initial impression of likely acute Dehydration - c/w IVF - difficulty swallowing. f/u speech eval - c/w supportive care # Lumbar Stenosis, chronic - Lumbar spinal decompression surgery on 07/31 - c/w supportive care - MRI as noted above # acute dysphagia - Swallow Study # Constipation, acute. poa. Resolved. now with acute diarrhea - check stool study # Acute hypokalemia, poa - Resolved - f/u Dispo: 2-3 days pending fever workup and improved strength GI Prophylaxis: H2 harish VTE Prophylaxis: Sub-Q Heparin (Unfractionated), SCDs VTE Mechanical Devices: Intermittant Pneumatic CD Resuscitation Status: CPR: Attempt Resuscitation Time spent 35 min Bobby Jackson Aug 06, 2016 18:38
[2016-08-06 20:06] VITALS: BP 137/79; PULSE 75; RESP 18; O2SAT 95
--- NOTE | 2016-08-06 22:53 | CONS ---
[address] [address] CONSULTATION REPORT PATIENT: PRIMITIVO PARMAR : 1930 MR#: [id number] ADMIT: 08/04/2016 JOB ID: [id number] DATE OF SERVICE: 08/06/[address] Jackson for this timely consult. REASON FOR CONSULTATION: Bacteremia and possible postoperative wound infection. 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 He has a relatively clean past medical history and underwent elective bilateral lumbar decompression at L3, L4 and 5 with placement of some epidural fat from a separate incision. His postoperative course has been a bit complicated in that he underwent the surgery six days ago. Starting on the second postop day apparently the patient fell out of bed while trying to get a urinal, and after that time spent considerable time in bed with periods of increasing confusion and lightheadedness. Eventually, the home health aides recommended the patient come to the hospital for readmission as his condition seemed to be steadily deteriorating in terms of more and more confusion. This readmission occurred on August 04, which was approximately three days after his surgery. The patient this afternoon is delirious. He is able to answer some questions quite logically, but at other times he tells me that he is pretty certain we served together in [place] in 1951 and wonders where I have been all these years. He also motions to and attempts to move objects that are not present in the room. His is, however, present and able to give more useful history. She states that in his second, third and fourth postop days the patient complained of being warm all the time and had some sweating, but she did not formally check his temperature. He did not appear to have chills but he was weak and at times quite confused. He was taking some pain meds and so it is a little unclear what role this plays. She also notes that both of them had a cough lately, which they thought was due to a" URI," but that both of them have had improving coughs and that he has not been troubled by shortness of breath or chest pain. For his part, the patient says he has not had really anything in the way of symptoms, but it is not clear that he understands completely his current circumstances. He denies having had fevers, chills or sweats. He said he is glad he is through all his problems and now it is smooth sailing from here on out. He specifically denies any GI or symptoms. Both the patient and his agree he has been strong and able to walk around at times postoperatively, and at other times really quite lightheaded and weak and unable to ambulate. PAST MEDICAL HISTORY: 1. Hypertension. 2. BPH. 3. Anxiety depression. 4. Lumbar spinal stenosis, status post extensive surgery six days ago. 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 He lives with his in [place], but they also commute and spend some of the year in [place], [place], where they have used to live until fairly recently. FAMILY HISTORY: Notable for myocardial infarctions in both parents. REVIEW OF SYSTEMS: Was done. This was done with the assistance of the as the patient continues to be delirious, but in any event, the patient reports no headache, no visual change, no sore throat is noted, and no trouble swallowing. Both the patient and his agree his teeth are in good repair and have not been a problem. He reports having had a dry cough a little while ago, which the confirms. This cough has ended. No shortness of breath or chest pain is noted. No nausea or vomiting. He has had about one loose stool per day over the past two or three days. Patient denies dysuria, urgency or frequency. He has had no swelling in his joints and no skin rash that he is aware of. The patient reports he has no neurologic symptoms, though the patient's reports that he is quite uncoordinated when he tries to get up and has fallen at least on one occasion. Rest of the review of systems is negative or unobtainable. PHYSICAL EXAMINATION: Reveals a gentleman who looks younger than his stated age of 86. He is currently 36.9, but he did spike as high as 38.8 yesterday afternoon. Pulse 68, respiratory rate 16, blood pressure 168/65. He is saturating well on room air. 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 He is able to answer some questions with great accuracy about his career and his symptoms, but at other times he is totally confused and thinks that blankets piled up on the bed represent animals or other fanciful objects. Examination of the head shows no trauma. His eyes are without conjunctivitis or scleral icterus. His oral cavity is notable for teeth in pretty good repair without obvious inflammation or gingivitis. No pharyngitis is noted. The patient's neck is supple. No thyromegaly is noted. Lungs are quite clear to auscultation. Cardiac tones: Regular rate and rhythm without notable murmur. The abdomen is soft and nontender without organomegaly. Penis and scrotum unremarkable. No suprapubic fullness is noted. The patient's upper extremities are benign. No synovitis or cellulitis. His back wound was examined. There is no evidence for postoperative infection with incision without inflammation, tenderness or drainage. His lower extremities are without synovitis, inflammation or edema. His strength is excellent 5+ in all four extremities. The patient has intact sensation. As noted, his mental status is difficult to ascertain. He is oriented x3 at times, but again is delirious and sometimes reports completely inappropriate answers to questions about who is in the room with us and other important questions. LABORATORIES: Include a white count which has been basically 12,000 on three measurements, no change. Minimal left shift. Slight monocytosis noted. Creatinine 0.56. Procalcitonin negative x2. LFTs are normal. Urinalysis has 0-5 white cells. One bottle out of apparently four blood culture bottles drawn yesterday is growing a strep species to be identified. Respiratory viral PCR panel negative and a MRSA screen is pending. IMAGING: Includes a lumbar MRI that was ordered by Dr. Jackson yesterday. Note this is only six days postop. It shows a fluid collection in the L3-4 disk and L4 vertebral body extending into the left L4 laminectomy site. It is unclear if this represents a postop hematoma or abscess. Also noted was an epidural fluid collection which could be causing some mass effect with impingement on the cauda equina. The chest x-ray is clear. IMPRESSION: This is a bit of an odd case in that it is an 86-year-old gentleman who is actually in excellent health for his age and looks much younger than 86. He underwent elective back surgery for lumbar stenosis six days ago and within the first day or two postop started to develop some weakness and had a fall. It is unclear how much of this, if any, was due to pain medications, but in any event his condition deteriorated with more time in bed and less ability to get up and around. He felt warm at times, but it is not clear if he had a fever. Eventually, he became basically unable to take in any nutrition and completely confused so he was brought back to the hospital and admitted in the engraver pantograph hours of August 05. We already have a single positive blood culture which appears to be a strep or enterococcus. Whether or not this is significant is unclear. Also uncertain is whether or not he has a postoperative infection. By initial evaluation I would think not; his white count is not impressive, nor does it show much in the way of left shift, but we are left with positive blood cultures and obvious evidence of bacteremia which we will need to decipher going forward. RECOMMENDATIONS: 1. Blood cultures x2 sets will be obtained. 2. The patient will be started on high-dose ceftriaxone while we attempt to figure out what is going on here. I do not think at this point he necessarily needs a lumbar puncture as his neck is supple and he appears more delirious than he is consistent with meningoencephalitis, but it is a concern that he could have an infection at the surgical site which is not immediately apparent or even conceivably meningitis, though I think it is quite unlikely. 3. This case discussed with Dr. Jackson. 4. I have carefully reviewed the notes from the neurosurgical physician's field research assistant and will be corresponding with him, as well as Neurosurgery as indicated here in the next day or two. Thank you very much for this consult. LUCA
[2016-08-07] MEDS: Heparin 5,000 Unit/mL Inj SUBQ SCH ×4 (01:26→23:16)
[2016-08-07] MEDS: Dextrose 5% 0.45% NaCl 1,000 ML IV SCH ×2 (01:33→16:12)
[2016-08-07 04:15] VITALS: BP 152/68; PULSE 65; RESP 18; O2SAT 95
--- NOTE | 2016-08-07 04:38 | NUR ---
Mentation/Scrotum pain The patient is very confused during initial assessment. He did not make any sense in conversation. Patient is alert to self only. Denies any pain except for scrotum pain. Scrotum is red. Camoseptine applied to area. Dressing on patients back appears clean, dry , and intact. VSS. Call light within reach. .
[2016-08-07] MEDS: cefTRIAXone Inj 2,000 MG in Dextrose 5% Minibag Plus 50 ML IV SCH ×2 (06:17→17:40)
[2016-08-07 07:59] LABS: BASOPHILS % (AUTO) 0.1 % (0-3); EOSINOPHILS % (AUTO) 0.2 % (0-5); MONOCYTES % (AUTO) 11.1 % (4-12); Mean Corpuscular Hemoglobin 31.8 pg (27.0-35.0); Mean Corpuscular Volume 93.4 fL (81-100); NEUTROPHILS % (AUTO) 73.2 % (40-74); Platelet Count 269 bil/L (150-400)
[2016-08-07] MEDS ORDERED: Potassium Chloride 20 mEq SR Tablet PO ONE (10:20)
[2016-08-07] MEDS: Famotidine Inj 20 MG in IV Premix 1 EACH IV SCH ×2 (10:59→20:30)
[2016-08-07] MEDS: Triamcinolone 0.1% 30 Gm Cream TOPICAL SCH ×2 (11:19→20:18)
--- NOTE | 2016-08-07 11:31 | PCM.PNSURG ---
Subjective Date of Service: Aug 07, 2016 Date of Service: Aug 07, 2016 Visit Information: Reason for Visit Generalized Weakness Surgery/Surgery Date Post-Op Day # Date of Admission: Aug 04, 2016 at 23:29 Hospital Day # Subjective: Rafiq De La Vega is a 86 year old male who presents on the date 08/07/2016 returning to Hospital under Hospitalists Attending Dr. Jackson for failure to thrive & dehydrationon post operative day #7 status post Metrx minimal access surgery involving bilateral lumbar segmental decompression at the L3-4 & L4-5 levels with approach from the left & placement of epidural fat graft from separate incision. The patient's postoperative outpatient with the bed hospital course was within normal limits with discharge on postop day #1 in good condition. The patient's reports that on postop day #2 the patient suffered a near fall out of bed and subsequent worsening fatigue, confusion, & lightheadedness with standing. Home Health RN recommended on postop day #3 if symptoms do not improve to take the patient to the emergency department over the weekend. Reported past difficulty OOB & positive blood culture today with slightly elevated white blood cell counts without neutropenia, current afebrile , & confused condition. Dr. Jackson is planning on having the patient undergo a postoperative lumbar spinal MRI with and without contrast today & was notified that this will likely show postoperative fluid collection. The patient has recognized improvement of his neurogenic claudication & related preoperative symptomatology in his lower extremities. The patient was seen by Infectious Disease Specialist Dr. Rachel who did not indicate the possible source of his bacteremia. The patient progressed more standing out of bed with physical therapy yesterday. He is still continues to be confused and is not properly oriented to place and time. Dr. Logan Juarez M.D. reviewed the patient's lumbar spinal MRI with and without contrast completed yesterday 2016 indicating that there was normal postoperative fluid collection without any significant nerve root involvement indicating urgent or emergent neurosurgical intervention. The patient denies headache, severe, sore throat, chest pain, shortness or breath, abdominal pain, nausea, vomiting, constipation, diarrhea, or any other new onset and location of pain, weakness, numbness or paresthesias aside from the minimal surgical site pain. Patient also denies bowel or bladder dysfunction. Objective Objective This is a well developed, well nourished, male who is alert, cooperative, and appears to be in no acute distress with pleasant affect with mild-moderate confusion. Exam of the head is normocephalic. PERRL, EOMI, without facial droop, hearing grossly intact, nostrils patent, oral cavity and pharynx normal. Voice is within normal limits Exam or the heart reveals regular rate and rhythm without audible murmurs The lungs are clear to auscultation bilaterally The abdomen is non- tender and non-distended Exam of the lumbar surgical wound reveals that it is clean, dry, and intact; without signs of infection, inflammation, and/or hematoma. Gross exam of the extremities reveals strength, reflexes, & sensation are grossly intact within the patient's normal baseline limits without any significant appreciable deficits. Vital Sign- Last 8 Hours Date Time Temp Pulse Resp B/P Pulse Ox O2 Delivery O2 Flow Rate FiO2 08/07/16 10:43 Room Air 08/07/16 04:15 37.2 65 18 152/68 95 Room Air Intake and Output- Last 8 Hour 08/07/16 Cumulative From/Thru 06:59 08/04/16 16:05 - 08/07/16 06:12 Intake Total 921 ml 4688 ml Output Total 203 ml 1793 ml Balance 718 ml 2895 ml Intake Oral 100 ml 250 ml IV Total 821 ml 4438 ml Output Urine Total 200 ml 1390 ml Stool Total 400 ml Urine/Stool Mix 3 ml 3 ml # Voids 2 # Bowel Movements 6 Result Diagram: 08/07/16 0733 08/07/16 0733 Assessment & Plan Impression Metrx minimal access surgery involving bilateral lumbar segmental decompression at the L3-4 & L4-5 levels with approach from the left & placement of epidural fat graft from separate incision postop day #7 with postoperative medication induced encephalopathy vs. acute mild delirium of & bacteremia of unknown origins. Based on the patient's history and physical presentation he does not have a significant postoperative surgical wound infection. Problems: Plan 1. Continue Attending Hospitalist evaluation & treatment. 2. Dr. Logan Juarez M.D. reviewed MRI reveals normal postoperative fluid collection without significant nerve root involvement indicating urgent or emergent surgical intervention. 3. Physical therapy to ambulate ADINA with fall precautions. 4. We will continue to follow the patient's hospital course communicating with Hospitalist Attending & Dr. Rachel. KK VTE Prophylaxis: Sub-Q Heparin (Unfractionated), SCDs Resuscitation Status: CPR: Attempt Resuscitation Toni Cobb PA-C Aug 07, 2016 11:31
--- NOTE | 2016-08-07 11:31 | PCM.PNMED ---
Subjective Date of Service Aug 07, 2016 Subjective Patient is sitting up at bedside with assistance from physical therapy. His is also at bedside he is a little bit clearer today than yesterday. Exam Vital Signs Vital Sign - Last Date Time Temp Pulse Resp B/P Pulse Ox O2 Delivery O2 Flow Rate FiO2 08/07/16 10:43 Room Air 08/07/16 04:15 37.2 65 18 152/68 95 Intake and Output 08/06/16 08/06/16 08/07/16 Cumulative From/Thru 15:00 23:00 07:00 08/04/16 16:05 - 08/07/16 06:12 Intake Total 1244 ml 921 ml 4688 ml Output Total 625 ml 203 ml 1793 ml Balance 619 ml 718 ml 2895 ml Intake Oral 150 ml 100 ml 250 ml IV Total 1094 ml 821 ml 4438 ml Output Urine Total 225 ml 200 ml 1390 ml Stool Total 400 ml 400 ml Urine/Stool Mix 3 ml 3 ml # Voids 2 # Bowel Movements 3 6 Exam Head: Normocephalic atraumatic Chest: Clear to auscultation. He does have a rash erythematous papular on his back only. According to and nurse this is new from yesterday. Cor: Regular rate and rhythm S1-S2 Abdomen: Soft nontender bowel sounds present Extremities: No pedal edema noted Neuro: He is alert and oriented to place and person but not time. Moves all his extremities equally. Lab and Diagnostics Laboratory Tests 72 Hours Test 08/04/16 17:30 08/04/16 22:10 08/05/16 05:12 08/06/16 07:19 White Blood Count 12.8th/mm3 (3.8-10.1) 11.4th/mm3 (3.8-10.1) 11.6th/mm3 (3.8-10.1) Red Blood Count 4.09mil/mm3 (4.40-5.80) 3.41mil/mm3 (4.40-5.80) 3.46mil/mm3 (4.40-5.80) Hemoglobin 13.1g/dL (13.8-17.2) 10.8g/dL (13.8-17.2) 10.8g/dL (13.8-17.2) Hematocrit 38.1% (41.0-50.0) 32.2% (41.0-50.0) 32.0% (41.0-50.0) Mean Corpuscular Volume 93.2fL (81-100) 94.4fL (81-100) 92.5fL (81-100) Mean Corpuscular Hemoglobin 32.0pg (27.0-35.0) 31.7pg (27.0-35.0) 31.2pg (27.0-35.0) Mean Corpuscular Hemoglobin Concent 34.4% (32.0-37.0) 33.5% (32.0-37.0) 33.8% (32.0-37.0) Red Cell Distribution Width 12.8% (12.3-15.4) 12.8% (12.3-15.4) 12.5% (12.3-15.4) Platelet Count 258bil/L (150-400) 240bil/L (150-400) 269bil/L (150-400) Neutrophils (%) (Auto) 66.8% (40-74) 65.3% (40-74) 77.1% (40-74) Lymphocytes (%) (Auto) 18.7% (14-46) 19.4% (14-46) 11.2% (14-46) Monocytes (%) (Auto) 13.8% (4-12) 13.8% (4-12) 11.3% (4-12) Eosinophils (%) (Auto) 0.3% (0-5) 1.1% (0-5) 0% (0-5) Basophils (%) (Auto) 0.2% (0-3) 0.2% (0-3) 0.1% (0-3) Sodium Level 134mEq/L (134-144) 133mEq/L (134-144) 133mEq/L (134-144) Potassium Level 3.3mEq/L (3.5-5.2) 3.7mEq/L (3.5-5.2) 4.4mEq/L (3.5-5.2) Chloride Level 92mEq/L (97-108) 97mEq/L (97-108) 96mEq/L (97-108) Carbon Dioxide Level 27mmol/L (18-29) 23mmol/L (18-29) 20mmol/L (18-29) Blood Urea Nitrogen 18mg/dL (8-27) 13mg/dL (8-27) 12mg/dL (8-27) Creatinine 0.63mg/dL (0.76-1.27) 0.56mg/dL (0.76-1.27) 0.50mg/dL (0.76-1.27) Estimat Glomerular Filtration Rate 128mL/min (>59) 147mL/min (>59) 168mL/min (>59) Glucose Level 117mg/dL (60-99) 111mg/dL (60-99) 136mg/dL (60-99) Calcium Level 9.0mg/dL (8.5-10.1) 7.8mg/dL (8.5-10.1) 7.8mg/dL (8.5-10.1) Magnesium Level 2.3mg/dL (1.6-2.6) Total Bilirubin 0.9mg/dL (0.0-1.2) Aspartate Amino Transf (AST/SGOT) 38U/L (0-50) Alanine Aminotransferase (ALT/SGPT) 26U/L (0-44) Alkaline Phosphatase 60U/L (25-160) Troponin T < 0.010ug/L (0.0-0.011) Total Protein 7.3g/dL (6.4-8.4) Albumin 3.8g/dL (3.4-5.0) Hold Jackson Top Tube Received (Received) Urine Color Dark yellow (YELLOW) Urine Appearance Clear (CLEAR,HAZY) Urine pH 6.5 (5.0-8.0) Urine Specific [place] 1.020 (1.003-1.035) Urine Protein Negativemg/dL (NEG,TRACE) Urine Glucose (UA) Negativemg/dL (NEGATIVE) Urine Ketones Tracemg/dL (NEGATIVE) Urine Occult Blood Trace (NEGATIVE) Urine Nitrite Negative (NEGATIVE) Urine Bilirubin Negative (NEGATIVE) Urine Urobilinogen Normalmg/dL (NORMAL) Urine Leukocyte Esterase Negative (NEGATIVE) Urine RBC 0-2/hpf (0-2) Urine WBC 0-5/hpf (0-5) Urine Epithelial Cells Occasional/hpf (NONE-MOD) Urine Crystals None seen (NONE SEEN) Urine Bacteria None/hpf (NONE-FEW) Urine Hyaline Casts None/lpf (NONE) Urine Granular Casts None seen (NONE SEEN) Urine Waxy Casts None seen (NONE SEEN) Urine Red Blood Cell Casts None seen (NONE SEEN) Urine White Blood Cell Casts None seen (NONE SEEN) Urine Mucus None seen (None Seen) Urine Trichomonas None seen (NONE SEEN) Urine Yeast None (NONE SEEN) Urine Culture Reflexed Not indicated Procalcitonin < 0.05ng/mL (See Comment) < 0.05ng/mL (See Comment) Thyroid Stimulating Hormone (TSH) 0.641uIU/mL (0.450-4.500) Test 08/07/16 07:33 White Blood Count 11.4th/mm3 (3.8-10.1) Red Blood Count 3.46mil/mm3 (4.40-5.80) Hemoglobin 11.0g/dL (13.8-17.2) Hematocrit 32.3% (41.0-50.0) Mean Corpuscular Volume 93.4fL (81-100) Mean Corpuscular Hemoglobin 31.8pg (27.0-35.0) Mean Corpuscular Hemoglobin Concent 34.1% (32.0-37.0) Red Cell Distribution Width 12.6% (12.3-15.4) Platelet Count 269bil/L (150-400) Neutrophils (%) (Auto) 73.2% (40-74) Lymphocytes (%) (Auto) 15.1% (14-46) Monocytes (%) (Auto) 11.1% (4-12) Eosinophils (%) (Auto) 0.2% (0-5) Basophils (%) (Auto) 0.1% (0-3) Sodium Level 138mEq/L (134-144) Potassium Level 3.2mEq/L (3.5-5.2) Chloride Level 102mEq/L (97-108) Carbon Dioxide Level 24mmol/L (18-29) Blood Urea Nitrogen 11mg/dL (8-27) Creatinine 0.59mg/dL (0.76-1.27) Estimat Glomerular Filtration Rate 138mL/min (>59) Glucose Level 137mg/dL (60-99) Calcium Level 8.1mg/dL (8.5-10.1) C-Reactive Protein 9.8mg/dL (0.0-0.5) Result Diagram: 08/07/1673208/07/16732 Microbiology RUN DATE: 08/07/16 [facility] LIVE PAGE 1 RUN TIME: 704 Specimen Inquiry PHYSICIAN Name: PRIMITIVO PARMAR Age/Sex: 86/M Attend Dr: Yaima Moss Acct: [id number] Unit: [id number] Status: ADM [place] [facility] [place] 1025-1 Re08/04/16 Disch: Specimen: [id number] Collected: 08/05/16 Status: RES Req#: [id number] Received: 08/05/16 Source: BLOOD Sp Desc : AA Estelita Dr: Bobby Jackson Ordered: STEPHEN Comments: Collected by Nurse/Unit? Y/N N Procedure Result Verified Site Microbiology ASIA CULTURE BLOOD Preliminary 08/07/16-704 Organism 1 POSITIVE BLOOD CULTURE GRAM STAIN RESULT GRAM POSITIVE COCCI BC BOTTLE Isolated from Aerobic Bottle of Set Drawn DATE CALLED: 08/06/16 TIME CALLED: 1844 CALLED BY: LAYA YODER/DOCTOR: PATRICIA/ANTHONY MITCHELL READ BACK YES TYPE OF DRAW PERIPHERAL DRAW TIME OF POSITIVITY 1810 GRAM STAIN RESULT GRAM POSITIVE COCCI ?STREP BC BOTTLE2 Isolated from Anaerobic Bottle of Set Drawn DATE CALLED: 08/06/16 TIME CALLED: 1844 CALLED BY: LAYA YODER/DOCTOR: PATRICIA/ANTHONY MITCHELL READ BACK YES TYPE OF DRAW PERIPHERAL DRAW TIME OF POSITIVITY 1830 Requires further isolation before workup. X-Rays, CTs and MRIs X-RAY CHEST ONE VIEW, PORTABLE IMPRESSION: No acute cardiopulmonary disease. Dictated by: Armando Cruz M.D. on 08/04/2016 at 19:16 Approved by: Armando Cruz M.D. on 08/04/2016 at 19:17 Assessment & Plan 86 year old male with PMH remarkable for depression, BPH, and HTN and had recently undergone a spinal stenosis decompression on 07/31/2016 who presents to the ED via EMS with concerns for increased dizziness and weakness. # Acute leukocytosis, poa and ongoing. Fever, not poa (spiked on 08/05) - blood culture x 2 - f/u pending resp PCR - check lumbar MRI r/o source of infection - f/u MRSA screen - CXR negative for pneumonia - UA negative - surgical site has clean dry bandage without drainage, fluctuance, erythema no signs of infection - procalcitonin negative. - ID consulted. will f/u w/ recs - appreciate neurosurgery consult as well. will f/u w/ recs -Blood culture has come back positive for gram-positive cocci possible strep further identification and sensitivities to follow -Continue with IV high-dose Rocephin for now. Unclear significance and possible source is unclear. # Rash, new onset, localized back, not present on admission -Possible contact dermatitis related -We will use triamcinolone topically twice a day -Also change sheets etc. that he lies against which are less allergenic # Initial impression of likely acute Dehydration - c/w IVF - difficulty swallowing. f/u speech eval - c/w supportive care # Lumbar Stenosis, chronic - Lumbar spinal decompression surgery on 07/31 - c/w supportive care - MRI as noted above # acute dysphagia - Swallow Study # Constipation, acute. poa. Resolved. now with acute diarrhea - check stool study # Acute hypokalemia, poa - Resolved - f/u Dispo: 2-3 days pending fever workup and improved strength GI Prophylaxis: H2 harish VTE Prophylaxis: Sub-Q Heparin (Unfractionated), SCDs VTE Mechanical Devices: Intermittant Pneumatic CD Resuscitation Status: CPR: Attempt Resuscitation Time spent 30 minutes Lauren Villar MD Aug 07, 2016 11:31
--- NOTE | 2016-08-07 15:15 | NUR ---
Mentation/Swallow Pt sleeping soundly at start of shift. Pt at bedside at breakfast, pt awake and conversing with . A&O to self and , did not know where he was or what day/time it was - asked multiple times. 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 Per , mentation improved in comparison to previous day. Call to ST for request of re-eval pt d/t increased cognition as pt requesting water and thin milk. Pt and appreciative of/with this. Care continues.
[2016-08-07 15:29] VITALS: BP 169/79; PULSE 68; RESP 18; O2SAT 96
--- NOTE | 2016-08-07 17:38 | PROG NOTE ---
[address] [address] PROGRESS NOTE PATIENT: PRIMITIVO PARMAR : 1930 MR#: [id number] ADMIT: 08/04/2016 JOB ID: [id number] DATE: 08/07/2016 INFECTIOUS DISEASE FOLLOWUP NOTE: REASON FOR FOLLOWUP: 1. High-grade Strep mitis bacteremia. 2. Status post recent lumbar spine surgery. INTERVAL HISTORY: Recall that this is the complex 86-year-old gentleman I saw in consult yesterday for a post laminectomy fever and confusion. Overnight the patient's mental status has improved core quite a bit. Yesterday he was wildly encephalopathic and thought we were on the deck of a troop ship [place]. Today the patient is still little slow, his reports, in that his answers are little bit slow in coming and not quite as sharp as usual, but he is certainly oriented and able to carry on at least a limited conversation today, which represents a great improvement. He has little memory of the events of yesterday. The patient today denies any significant headache. He has no oral pain. No cough, shortness of breath. No nausea, vomiting, or diarrhea. He has minimal pain at the site of his recent lumbar back surgery. PHYSICAL EXAMINATION: Reveals a gentleman who is now afebrile after having been febrile on the during his first in-hospital day. His temp 36.7, pulse 68, respiratory rate 18, blood pressure 169/79. He is saturating well on room air. The patient's mental status is clear. More is clear though his answers are little bit slow in terms of latency. His oral cavity is without thrush or hairy leukoplakia. His lungs are clear posteriorly. Cardiac tones regular rate and rhythm, without any murmur. His oral cavity is without evidence of odontogenic infection. His lumbar spine incision was carefully examined and looks quite benign. No skin rash noted. LABORATORIES: Include a white count of 11,400 with normal diff. Creatinine 0.59. Urinalysis without pyuria. His blood cultures are negative in followup, but the first four bottles were positive for Strep mitis it appears. I have discussed this with the micro lab. It also appears that one bottle may have a coag-negative staph. A MRSA screen is negative. The lumbar MRI was reviewed yesterday and is consistent with postop changes. I discussed the case in detail today with the physician's assistant gm of content & delivery, Toni Cobb, who is been in contact with Dr. Juarez of neurosurgery. They do not think that the patient has evidence of a spine infection either by exam or the MRI. IMPRESSION: This is an interesting case of a gentleman who had what appeared to be an uncomplicated lumbar spine surgery he recently, only to present with fever and confusion. We now have multiple blood cultures growing Streptococcus mitis, which is most typically associated with endocarditis. It certainly can be seen in odontogenic infections, as well as occasionally in abscesses, and it could conceivably be a postop wound infection organism, but that would be fairly atypical. RECOMMENDATIONS: 1. The patient should certainly be kept in the hospital until we have a better idea of what is going on. 2. Will continue with high-dose ceftriaxone at 2 g q.12, though I plan to lower that dose as it is becoming clear he does not have meningitis. 3. An echocardiogram will be ordered to investigate the possibility of endocarditis. Given the high-grade nature of the Strep mitis bacteremia, if we cannot find another explanation a APRIL may eventually be needed. 4. I will defer on the additional imaging of the spine to neurosurgery and plan to discuss the case with them on a frequent basis until we have some understanding of the origin of this high-grade Strep mitis bacteremia.
[2016-08-07 21:00] VITALS: BP 194/85; PULSE 65; RESP 20; O2SAT 97
[2016-08-07] MEDS ORDERED: LORazepam 1 mg Tablet PO PRN (21:00)
[2016-08-08 05:39] VITALS: BP 173/71; PULSE 81; RESP 16; O2SAT 96
[2016-08-08] MEDS: cefTRIAXone Inj 2,000 MG in Dextrose 5% Minibag Plus 50 ML IV SCH ×2 (06:06→16:52)
[2016-08-08] MEDS: Dextrose 5% 0.45% NaCl 1,000 ML IV SCH ×3 (06:09→23:07)
[2016-08-08] MEDS ORDERED: VIT C PO SCH (08:30)
[2016-08-08] MEDS ORDERED: GLUC SU PO SCH (08:30)
[2016-08-08] MEDS ORDERED: [UNRECOGNIZED DRUG - OTHER] PO SCH (08:30)
[2016-08-08] MEDS ORDERED: MAGNESIUM PO SCH (08:30)
[2016-08-08] MEDS ORDERED: VITAMIN B COMPLEX PO SCH (08:30)
[2016-08-08] MEDS ORDERED: MSM PO SCH (08:30)
[2016-08-08] MEDS ORDERED: VIT C NO 4 PO SCH (08:30)
[2016-08-08] MEDS: Famotidine Inj 20 MG in IV Premix 1 EACH IV SCH ×2 (09:00→20:40)
[2016-08-08] MEDS: Heparin 5,000 Unit/mL Inj SUBQ SCH ×2 (09:07→16:49)
[2016-08-08] MEDS: Triamcinolone 0.1% 30 Gm Cream TOPICAL SCH ×2 (09:17→20:43)
[2016-08-08 09:55] VITALS: BP 177/68; PULSE 65; RESP 16; O2SAT 97
--- NOTE | 2016-08-08 11:06 | PCM.PNSURG ---
Subjective Date of Service: Aug 08, 2016 Date of Service: Aug 08, 2016 Visit Information: Reason for Visit Generalized Weakness Surgery/Surgery Date Post-Op Day # Date of Admission: Aug 04, 2016 at 23:29 Hospital Day # Subjective: Rafiq De La Vega is a 86 year old male who presents on the date 08/08/[address] [facility] under Hospitalist & Attending Dr. Jackson' s now under Dr. Villar's for now overall improved failure to thrive, generalized weakness, & dehydrationon post operative day #8 status post Metrx minimal access surgery involving bilateral lumbar segmental decompression at the L3-4 & L4-5 levels with approach from the left & placement of epidural fat graft from separate incision. The patient's initial postoperative outpatient with the bed hospital course was within normal limits with discharge on postop day #1 in good condition. The patient's reports that on postop day #2 the patient suffered a near fall out of bed and subsequent worsening fatigue, confusion, & lightheadedness with standing. Home Health RN recommended on postop day #3 if symptoms do not improve to take the patient to the emergency department over the weekend. Reported difficulty OOB & positive blood cultures for Strep Mitis with slightly elevated white blood cell counts without neutropenia, current afebrile, & confused condition. Hospitalist Dr. Jackson ordered a postoperative lumbar spinal MRI with and without contrast on 08/06/16. The patient & his have recognized improvement of his neurogenic claudication & related preoperative symptomatology in his lower extremities. The patient was seen by Infectious Disease Specialist Dr. Rachel who indicated a possible source of his bacteremia to be endocarditis or unlikely postsurgical wound infection; therefore he has scheduled the patient for an echocardiogram study today. Dr. Rachel has also started the patient on the appropriate IV antibiotics. The patient has currently progressed more standing out of bed to chair with physical therapy yesterday. He is still continues to be confused and is not properly oriented to place and time; however the patient's & his RN seemed to think he has improved with this as well. Dr. Logan Juarez M.D. reviewed the patient's lumbar spinal MRI with and without contrast completed yesterday indicating that there was normal postoperative fluid collection without any significant nerve root involvement indicating urgent or emergent neurosurgical intervention. Dr. Juarez continues to not to recommend urgent or emergent Neurosurgical intervention unless the patient is symptomatically indicated. The Neurosurgical service will continue to follow his medical progress throughout his hospital course & remain available whenever necessary. The patient denies headache, severe, sore throat, chest pain, shortness or breath, abdominal pain, nausea, vomiting, constipation, diarrhea, or any other new onset and location of pain, weakness, numbness or paresthesias aside from the minimal surgical site pain. Patient also denies bowel or bladder dysfunction. Objective Objective This is a well developed, well nourished, male who is alert, cooperative, and appears to be in no acute distress with pleasant affect with mild-moderate confusion. Exam of the head is normocephalic. PERRL, EOMI, without facial droop, hearing grossly intact, nostrils patent, oral cavity and pharynx normal. Voice is within normal limits Exam of the lumbar surgical wound reveals that it is clean, dry, and intact; without signs of infection, inflammation, and/or hematoma. Gross exam of the extremities reveals strength, reflexes, & sensation are grossly intact within the patient's normal baseline limits without any significant appreciable peripheral neurological deficits. Vital Sign- Last 8 Hours Date Time Temp Pulse Resp B/P Pulse Ox O2 Delivery O2 Flow Rate FiO2 08/08/16 09:55 36.4 65 16 177/68 97 Room Air 08/08/16 05:39 36.7 81 16 173/71 96 Room Air 08/08/16 04:35 Supplement Oxygen Intake and Output- Last 8 Hour 08/08/16 Cumulative From/Thru 07:00 08/04/16 16:05 - 08/08/16 06:07 Intake Total 681 ml 7014 ml Output Total 650 ml 3093 ml Balance 31 ml 3921 ml Intake Oral 100 ml 875 ml IV Total 581 ml 6139 ml Output Urine Total 650 ml 2690 ml Stool Total 400 ml Urine/Stool Mix 3 ml # Voids 2 4 # Bowel Movements 0 7 Result Diagram: 08/07/16 0733 08/08/16 0637 Assessment & Plan Impression Metrx minimal access surgery involving bilateral lumbar segmental decompression at the L3-4 & L4-5 levels with approach from the left & placement of epidural fat graft from separate incision postop day #8 with idiopathic postoperative encephalopathy & bacteremia of unknown origin. Based on the patient's history, MRI imaging, and physical presentation he likely does not have a significant postoperative surgical wound infection at this time. Problems: Plan 1. Continue Attending Hospitalist evaluation & treatment. 2. Dr. Logan Juarez M.D. reviewed MRI reveals normal postoperative fluid collection without significant nerve root involvement indicating urgent or emergent surgical intervention. 3. Physical therapy BID with fall precautions please. 4. We will continue to follow the patient's hospital course communicating with Hospitalist Attending & Dr. Rachel. 5. Neurosurgery Physician [employer] extension #[phone] available all office hours or direct contact Neurosurgeon Dr. Logan Juarez M.D. # . VTE Prophylaxis: Sub-Q Heparin (Unfractionated), SCDs Resuscitation Status: CPR: Attempt Resuscitation Toni Cobb PA-C Aug 08, 2016 11:06
[2016-08-08] MEDS: HYDROcodone-APAP 10-325 mg PO PRN ×2 (11:19→20:50)
--- NOTE | 2016-08-08 11:33 | PROG NOTE ---
[address] [address] PROGRESS NOTE PATIENT: PRIMITIVO PARMAR : 1930 MR#: [id number] ADMIT: 08/04/2016 JOB ID: [id number] DATE: 08/08/2016 INFECTIOUS DISEASE FOLLOWUP NOTE: REASON FOR FOLLOWUP: Streptococcal bacteremia in a patient who recently had lumbar spine surgery. INTERVAL HISTORY: The patient tells me that overnight he has been feeling "strange." He says his arms and legs do not seem to move exactly where he wants them to, and he feels like he is losing strength. He also notes that he has had at least one sustain chill. He denies headache though. He says his memory is not good the last few days and he remains indistinct about what has happened since he was admitted to the hospital. He denies fevers but did have the chill as mentioned. He has no sore throat and no cough or shortness of breath. His belly feels distended but is nontender. He says he feels like he wants to urinate but cannot and believes there is no fluid in his bladder. He has not had uncontrolled diarrhea. He notes that his legs feel a bit weak. PHYSICAL EXAMINATION: Reveals a gentleman who is oriented x3 today but is a little unsure about exactly where he is in the city in [place]. He does know the year and who is president. Temperature 36.4, pulse 65, respiratory rate 16, blood pressure 177/68. He is saturating 97% on room air. The patient's eyes are without scleral icterus or conjunctivitis. Extraocular movements are intact. Oral cavity is benign. His neck is supple. Lungs quite clear. Cardiac tones without new murmur. The abdomen is slightly distended but nontender. There is no suprapubic fullness whatsoever, and he does not have a Abebe catheter. His lower extremities have 5/5 strength. LABORATORIES: Include a white count which is stable at 11,000 with a normal diff. His creatinine is 0.55. His LFT are normal. Procalcitonin 0. CRP is 9.8. Urinalysis without white cells. Micro studies include 4/4 blood cultures from the when he was admitted which are growing alpha strep. The Lab reports having a terrible time figuring out how many alpha streps are present in each bottle, as some appear to have multiple species. Because of this confusion they have not been able to do any susceptibilities but they can say for sure that all four bottles have an alpha strep, and it is not pneumococcus. MRSA screen is negative. Followup blood cultures on the remain negative. IMAGING: Includes only the MRI scan of the back which was done two days ago. IMPRESSION: This is a very confusing case. This patient underwent lumbar spine surgery and was convalescing. The patient did relatively well for a period of time but then deteriorated with some subjective fevers, a fall and just generalized weakness and eventually confusion. How the streptococcal bacteremia relates to all of this remains unclear. Alpha streptococci in the blood like this are often associated with endocarditis and would be much less commonly associated with wound infection though it is certainly not out of the realm of possibility. I see no evidence at this point from meningoencephalitis. RECOMMENDATIONS: 1. We await the repeat blood cultures. 2. Will continue the patient with ceftriaxone. 3. I have asked the nurses to perform a bladder scan immediately to see if it could be urinary retention. If there is urinary retention, he may require a Abebe but more importantly, this could be a sign of spinal cord dysfunction, and he may require repeat MRI scan of his back and/or additional evaluation from Neurosurgery. 4. I discussed this case in detail with the PA from Neurosurgery yesterday, and Neurosurgery continues to be involved in following this patient, though as of yet it is unclear if he has a wound infection or not.
[2016-08-08] MEDS ORDERED: Potassium Chloride 20 mEq SR Tablet PO ONE (12:35)
--- NOTE | 2016-08-08 12:51 | PCM.PNMED ---
Subjective Date of Service Aug 08, 2016 Subjective Patient is a little bit clearer mentally today. This is according to also. He does have a good appetite. Exam Vital Signs Vital Sign - Last Date Time Temp Pulse Resp B/P Pulse Ox O2 Delivery O2 Flow Rate FiO2 08/08/16 09:55 36.4 65 16 177/68 97 Room Air Intake and Output 08/07/16 08/07/16 08/08/16 Cumulative From/Thru 15:00 23:00 07:00 08/04/16 16:05 - 08/08/16 06:07 Intake Total 1645 ml 681 ml 7014 ml Output Total 650 ml 650 ml 3093 ml Balance 995 ml 31 ml 3921 ml Intake Oral 525 ml 100 ml 875 ml IV Total 1120 ml 581 ml 6139 ml Output Urine Total 650 ml 650 ml 2690 ml Stool Total 400 ml Urine/Stool Mix 3 ml # Voids 2 4 # Bowel Movements 1 0 7 Exam Constitutional: Elderly male in no acute distress Head: Normocephalic atraumatic Chest: Clear to auscultation Cor: Regular rate and rhythm S1-S2 Abdomen: Soft nontender bowel sounds present Extremities: No pedal edema Lab and Diagnostics Result Diagram: 08/07/16 0733 08/08/16 0637 Microbiology RUN DATE: 08/07/16 [facility] LAB LIVE PAGE 1 RUN TIME: 704 Specimen Inquiry PHYSICIAN Name: GHULAMPRIMITIVO Age/Sex: 86/M Attend Dr: Yaima Moss Acct: [id number] Unit: [id number] Status: ADM [place] [facility] [place]25-1 Re08/04/16 Disch: Specimen: [id number] Collected: 08/05/16 Status: RES Lea#: [id number] Received: 08/05/16 Source: BLOOD Sp Desc : MAC Capone Dr: Bobby Jackson Ordered: STEPHEN Comments: Collected by Nurse/Unit? Y/N N Procedure Result Verified Site Microbiology ASIA CULTURE BLOOD Preliminary 08/07/16-704 Organism 1 POSITIVE BLOOD CULTURE GRAM STAIN RESULT GRAM POSITIVE COCCI BC BOTTLE Isolated from Aerobic Bottle of Set Drawn DATE CALLED: 08/06/16 TIME CALLED: 1844 CALLED BY: LAYA FLOOR/DOCTOR: JACQUES MITCHELL READ BACK YES TYPE OF DRAW PERIPHERAL DRAW TIME OF POSITIVITY 1810 GRAM STAIN RESULT GRAM POSITIVE COCCI ?STREP BC BOTTLE2 Isolated from Anaerobic Bottle of Set Drawn DATE CALLED: 08/06/16 TIME CALLED: 1844 CALLED BY: LAYA YODER/DOCTOR: JACQUES MITCHELL READ BACK YES TYPE OF DRAW PERIPHERAL DRAW TIME OF POSITIVITY 1830 Requires further isolation before workup. X-Rays, CTs and MRIs X-RAY CHEST ONE VIEW, PORTABLE IMPRESSION: No acute cardiopulmonary disease. Dictated by: Armando Cruz M.D. on 08/04/2016 at 19:16 Approved by: Armando Cruz M.D. on 08/04/2016 at 19:17 Assessment & Plan 86 year old male with PMH remarkable for depression, BPH, and HTN and had recently undergone a spinal stenosis decompression on 07/31/2016 who presents to the ED via EMS with concerns for increased dizziness and weakness. # Acute leukocytosis, poa and ongoing. Fever, not poa (spiked on 08/05) - blood culture x 2 - f/u pending resp PCR - check lumbar MRI r/o source of infection - f/u MRSA screen - CXR negative for pneumonia - UA negative - surgical site has clean dry bandage without drainage, fluctuance, erythema no signs of infection - procalcitonin negative. - ID consulted. will f/u w/ recs - appreciate neurosurgery consult as well. will f/u w/ recs -Blood culture has come back positive for gram-positive cocci possible strep further identification and sensitivities to follow -Continue with IV high-dose Rocephin for now. Unclear significance and possible source is unclear -Echocardiogram today as per ID. # Rash, new onset, localized back, not present on admission -Possible contact dermatitis related -We will use triamcinolone topically twice a day -Also change sheets etc. that he lies against which are less allergenic # Initial impression of likely acute Dehydration - c/w IVF - c/w supportive care # Lumbar Stenosis, chronic - Lumbar spinal decompression surgery on 07/31 - c/w supportive care - MRI as noted above -Neurosurgery does not feel that the findings of MRI are suggestive of any infection within the site of operation. # acute dysphagia - Swallow Study -Passed swallow study and has no problems with swallowing at this time # Constipation, acute. poa. Resolved. # Acute hypokalemia, poa - f/u -We will replete today. Dispo: 2-3 days pending fever workup and improved strength GI Prophylaxis: H2 harish VTE Prophylaxis: Sub-Q Heparin (Unfractionated), SCDs VTE Mechanical Devices: Intermittant Pneumatic CD Resuscitation Status: CPR: Attempt Resuscitation Time spent 30 minutes Lauren Villar MD Aug 08, 2016 12:51
--- NOTE | 2016-08-08 13:43 | NUR ---
Pain P: Patient c/o right shoulder pain I: Pain med given and position change offered but patient declined E:after reassessment patient is not in pain
[2016-08-08 16:57] VITALS: BP 171/78; PULSE 68; RESP 20; O2SAT 97
--- NOTE | 2016-08-08 17:12 | DRSVH ---
[facility] [address] [place] [address] Echocardiogram Report Name: PRIMITIVO PARMAR Date: 08/08/2016 Height: 67 in Hospital Exam Location: [facility] Weight: 184 lb Gender: Male BSA: 2.0 m2 : 1930 Age: 86 yrs BP: 173/71 mmHg Reason For Study: Endocarditis Ordering Physician: Performed By: Heather Mar Referring Physician: MATILDA CARMICHAEL Interpretation Summary Left ventricular systolic function is normal without focal wall motion abnormalities. The ejection fraction is estimated to be 70-75%. Assessment of diastolic parameters suggests a pseudonormalization pattern, consistent with elevated filling pressures. The right ventricle is mildly dilated. The right ventricular systolic function is normal. The right ventricular systolic pressure is estimated at 63 mmHg assuming a right atrial pressure of 8 mm Hg. There is mild to moderate tricuspid regurgitation. There is mild aortic regurgitation. There is no other significant valvular heart disease. No findings that would suggest endocarditis. Procedure: A two-dimensional transthoracic echocardiogram with color flow and Doppler was performed in limited views only. The echocardiogram is done to evaluate valves for endocarditis. The study quality was technically adequate. The patient was in normal sinus rhythm during the exam. The patient had frequent PVCs during the exam. Left Ventricle: The left ventricle is normal in size. There is normal left ventricular wall thickness. A false chord is noted (normal variant). Left ventricular systolic function is normal without focal wall motion abnormalities. The ejection fraction is estimated to be 70-75%. Assessment of diastolic parameters suggests a pseudonormalization pattern, consistent with elevated filling pressures. Right Ventricle: The right ventricle is mildly dilated. The right ventricular systolic function is normal. Mitral Valve: The mitral valve is normal in structure and function. There is no vegetation seen on the mitral valve. There is trace mitral regurgitation. Aortic Valve: The aortic valve is normal in structure and function. There is no aortic valvular vegetation. There is mild aortic regurgitation. Tricuspid Valve: The tricuspid valve leaflets are thin and pliable. There is no tricuspid valve vegetation. There is mild to moderate tricuspid regurgitation. The right ventricular systolic pressure is estimated at 63 mmHg assuming a right atrial pressure of 8 mm Hg. Pulmonic Valve: The pulmonic valve is normal in structure and function. There is no vegetation on the pulmonic valve. There is a trace or physiologic amount of pulmonic regurgitation. There is no other significant valvular heart disease. There is no obvious valvular vegetation identified on this exam. Consider APRIL if there is a high degree of clinical suspicion for endocarditis and clinically appropriate. Great Vessels: The IVC is of normal diameter and collapses less than 50% with a sniff. This suggests a right atrial pressure of 8 mm Hg. Pericardium/ Pleura There is no pericardial effusion. MMode/2D Measurements & Calculations LVIDd IVC diam LV daly. diameter/BSA LV sys. diameter/BSA : 4.5 cm : 2.0 cm (cm/m^2): 2.3 (cm/m^2): 1.5 LVIDs : 3.0 cm FS: 33.7 % IVSd : 0.9cm LVPWd : 1.0 cm Doppler Measurements & Calculations MV E max jairon MV E/A: 1.4 TR max jairon MV dec time : 106.5 cm/sec Med Peak E' Jairon : 370.8 cm/sec : 0.18 sec MV A max jairon TR max PG : 78.3 cm/sec E/E' med: 14.1 : 55.0 mmHg MV P1/2t: 54.5 msec Lat Peak E' Jairon E/E' lat: 12.6 E/e' average: 13.4 Pulm A Revs Dur MV P1/2t max jairon MVA(P1/2t): 4.0 cm2 Reading Physician:ENDY
--- NOTE | 2016-08-08 18:36 | NUR ---
Mentation Throughout shift, pt awake and alert. Mild forgetfulness. Pt sleeping from about 1630 on and when awakened is unaware of where he is. Redirected easily. oriented to self and year. Bed down, patricia alarm on, call light w/in reach and used appropriately
[2016-08-08 20:03] VITALS: BP 180/76; PULSE 77; RESP 18; O2SAT 97
[2016-08-09] MEDS: Heparin 5,000 Unit/mL Inj SUBQ SCH ×3 (01:26→17:02)
[2016-08-09] MEDS: HYDROcodone-APAP 10-325 mg PO PRN (01:26)
--- NOTE | 2016-08-09 01:50 | NUR ---
Mobility VSS and ORTHOS WNL yet pt. c/o 11/14 pain with repositioning.Vicoden adm and eff.Cont. conf.at times especially after awakening yet cooperative and pleasant.Sleeping soundly at this time and resting comfortably.Will cont. to monitor.
[2016-08-09 04:00] VITALS: BP 194/78; PULSE 68; RESP 20; O2SAT 98
[2016-08-09] MEDS: cefTRIAXone Inj 2,000 MG in Dextrose 5% Minibag Plus 50 ML IV SCH ×2 (04:35→17:08)
[2016-08-09 07:22] VITALS: BP 204/100; PULSE 73; RESP 12
[2016-08-09] MEDS ORDERED: hydrALAZINE 20 mg/mL Inj IV PRN (07:45)
[2016-08-09] MEDS: Famotidine Inj 20 MG in IV Premix 1 EACH IV SCH ×2 (08:10→20:34)
[2016-08-09] MEDS: Triamcinolone 0.1% 30 Gm Cream TOPICAL SCH ×2 (08:26→20:35)
--- NOTE | 2016-08-09 09:45 | PCM.PNSURG ---
Subjective Date of Service: Aug 09, 2016 Date of Service: Aug 09, 2016 Visit Information: Reason for Visit Generalized Weakness Surgery/Surgery Date Post-Op Day # Date of Admission: Aug 04, 2016 at 23:29 Hospital Day # Subjective: Rafiq De La Vega is a 86 year old male who presents on the date 08/09/2016 returning to [facility] under Hospitalist & Attending Dr. Jackson' s now under Dr. Villar's care for now overall improved failure to thrive, generalized weakness, & dehydrationon post operative day #9 status post Metrx minimal access surgery involving bilateral lumbar segmental decompression at the L3-4 & L4-5 levels with approach from the left & placement of epidural fat graft from separate incision. The patient's initial postoperative outpatient with the bed hospital course was within normal limits with discharge on postop day #1 in good condition. The patient's reports that on postop day #2 the patient suffered a near fall out of bed and subsequent worsening fatigue, confusion, & lightheadedness with standing. Home Health RN recommended on postop day #3 if symptoms do not improve to take the patient to the emergency department over last weekend. On readmission reported difficulty OOB & positive blood cultures for Strep Mitis with slightly elevated white blood cell counts without neutropenia, current afebrile, & confused condition. Hospitalist Dr. Jackson ordered a postoperative lumbar spinal MRI with and without contrast on 08/06/16. The patient & his have recognized improvement of his neurogenic claudication & related preoperative symptomatology in his lower extremities. The patient was seen by Infectious Disease Specialist Dr. Rachel who indicated a possible source of his bacteremia to be endocarditis or unlikely postsurgical wound infection; therefore the patient underwent echocardiogram which was reported negative by Broadcast Traffic Coordinator Dr. Pemberton for endocarditis. Dr. Rachel has the patient on the appropriate IV antibiotics but there is still no reported source of the patient's bacteremia. The patient has currently progressed more ambulating around the room & out of bed for meals now. He only complains of mild lower back incisional pain on the left side consistent with the left-sided surgical approach. The patient's mentation has also improved significantly throughout his stay. Dr. Logan Juarez M.D. reviewed the patient's lumbar spinal MRI with and without contrast completed yesterday 08/06/2016 indicating that there was normal postoperative fluid collection without any significant nerve root involvement indicating urgent or emergent neurosurgical intervention. Dr. Juarez continues to not to recommend urgent or emergent Neurosurgical intervention unless the patient is symptomatically indicated & the wound is identified as the infection source. The Neurosurgical service will continue to follow his medical progress throughout his hospital course & remain available whenever necessary. The patient denies headache, fever, chills, severe, sore throat, chest pain, shortness or breath, abdominal pain, nausea, vomiting, constipation, diarrhea, or any other new onset and location of pain, weakness, numbness or paresthesias aside from the minimal surgical site pain. Patient also denies any significant related bowel or bladder dysfunction. Objective Objective This is a well developed, well nourished, male who is alert, cooperative, and appears to be in no acute distress with pleasant affect with mild-moderate confusion. Exam of the head is normocephalic. PERRL, EOMI, without facial droop, hearing grossly intact, nostrils patent, oral cavity and pharynx normal. Voice is within normal limits Exam of the lumbar surgical wound reveals that it is clean, dry, and intact; without signs of infection, inflammation, and/or hematoma. Gross exam of the extremities reveals strength, reflexes, & sensation are grossly intact within the patient's normal baseline limits without any significant appreciable peripheral neurological deficits. Vital Sign- Last 8 Hours Date Time Temp Pulse Resp B/P Pulse Ox O2 Delivery O2 Flow Rate FiO2 08/09/16 07:22 36.6 73 12 204/100 Room Air 08/09/16 04:00 36.3 68 20 194/78 98 Room Air Intake and Output- Last 8 Hour 08/09/16 Cumulative From/Thru 07:00 08/04/16 16:05 - 08/09/16 05:46 Intake Total 1122 ml 9476 ml Output Total 2180 ml 6768 ml Balance -1058 ml 2708 ml Intake Oral 300 ml 1626 ml IV Total 822 ml 7850 ml Output Urine Total 2180 ml 6365 ml Stool Total 400 ml Urine/Stool Mix 3 ml # Voids 4 # Bowel Movements 0 7 Result Diagram: 08/07/16 0733 08/09/16 0750 Assessment & Plan Impression Metrx minimal access surgery involving bilateral lumbar segmental decompression at the L3-4 & L4-5 levels with approach from the left & placement of epidural fat graft from separate incision postop day #9 with idiopathic postoperative encephalopathy & bacteremia of unknown origin. Based on the patient's history, MRI imaging, and physical presentation he likely does not have a significant postoperative surgical wound infection requiring Neurosurgical intervention at this time. Problems: Plan 1. Continue Attending Hospitalist & Infectious Disease evaluation & treatment. 2. Dr. Logan Juarez M.D. reviewed MRI reveals normal postoperative fluid collection without significant nerve root involvement indicating urgent or emergent surgical intervention. 3. Physical therapy BID with fall precautions please. 4. We will continue to follow the patient's hospital course communicating with Hospitalist Attending & Dr. Rachel. 5. Echocardiogram reported negative for endocarditis. 6. Social work to cancel family for [facility]. 7. Neurosurgery Physician Chemical Lab Supervisor extension #[phone] available all office hours or direct contact Neurosurgeon Dr. Logan Juarez M.D. # . VTE Prophylaxis: Sub-Q Heparin (Unfractionated), SCDs Resuscitation Status: CPR: Attempt Resuscitation copies to: Esau Temple MD, Scott PA-C Aug 09, 2016 09:45
[2016-08-09 10:44] VITALS: BP 200/83; PULSE 84
[2016-08-09 11:58] VITALS: BP 165/88; PULSE 78
--- NOTE | 2016-08-09 12:50 | PROG NOTE ---
[address] [address] PROGRESS NOTE PATIENT: PRIMITIVO PARMAR : 1930 MR#: [id number] ADMIT: 08/04/2016 JOB ID: [id number] DATE: 08/09/2016 INFECTIOUS DISEASE FOLLOWUP NOTE: REASON FOR FOLLOWUP: High-grade strep viridans bacteremia in a postoperative patient. INTERVAL HISTORY: The patient is gradually feeling better, though he still has some deficits in his recent memory. He is becoming acutely aware that he has forgotten some things and been confused over the past few days since his admission, and he now knows that he is in the hospital, though he is not quite certain where that hospital is. He is also more aware of current political affairs as he is currently watching TV about the new administration. Today, he tells me he feels relatively well except for some degree of low back pain with some radiation to the right leg. He states he is now ambulating more than he was, feeling stronger. He denies fevers, chills, cough, shortness of breath, or chest pain. As noted, even he is aware that his mentation has not been right and that it is now starting to improve. PHYSICAL EXAMINATION: Reveals an afebrile gentleman, temperature 36.6, pulse 73, respiratory rate 12, blood pressure 165/88, saturating well on room air. His head is without trauma. Eyes without conjunctival hemorrhage. Oral cavity benign and his teeth are in great repair suggesting they are not the cause of his viridans bacteremia. His lungs are quite clear. Cardiac tones regular rate and rhythm, without murmur. Abdomen benign. His lumbar incision is without obvious evidence of inflammation or infection. No peripheral stigmata of endocarditis on the hands. LABORATORIES: Include a white count stable at 11,000 with a now completely normal diff. Creatinine is 0.49. His LFTs are normal. His albumin is 3. Micro studies include 4/4 blood cultures on the , the day of admission, which have grown two separate species of what appear to be Strep viridans organisms. I have spoken to the micro lab again today and they are still having trouble out these two very similar but distinct organisms which are present in all four bottles. All followup blood cultures are negative and a MRSA screen is negative. The patient's transthoracic echo has been done and read by Dr. Pemberton. There is no lesion to suggest endocarditis, though there is some mild aortic regurgitation and moderate tricuspid regurg. IMPRESSION: This remains a confusing case of a gentleman who developed encephalopathy and high-grade Streptococcus viridans bacteremia shortly after lumbar spine surgery. The possible sources of such a high-grade bacteremia are typically an odontogenic infection or abscess, endocarditis, or conceivably in this case a postoperative wound infection. None of these seems to be panning out as the cause of his bacteremia so far, but I am reluctant to give up on a situation where 4/4 blood cultures grew the same collection of organisms. Endocarditis would be the pivotal thing to rule out here, as would a developing spinal epidural abscess of course. RECOMMENDATIONS: 1. Transesophageal echo is indicated. If this is negative, we can probably just treat for a total of two weeks or so with IV therapy and conclude this likely arose from either his postop wound or perhaps some occult source of infection, but in any event not spinal epidural abscess or endocarditis. 2. The patient's tells me he will be going to the local rehab and of course it would be easy for him to finish a once a day IV antibiotic such as ceftriaxone there once we have resolved this issue about possible endocarditis. 3. I have read and appreciate the notes from neurosurgery who think that his MRI shows simple postoperative changes and that they are not concerned about spinal epidural abscess or wound infection at this point.
--- NOTE | 2016-08-09 13:40 | NUR ---
ambulation P:immobility due to weakness I: Pt was able to go from bed to chair for each meal E:Patient was able to tolerate the chair for about an hour before having lower back pain
--- NOTE | 2016-08-09 13:51 | NUR ---
Social Work Continued Discharge Planning: SW met with patient and Ashwini, (h) at bedside to discuss discharge plan. Plan is SNF placement at [facility] pending [facility] auth. [facility] has accepted patient for rehab. UR specialist has been in communication with [facility] daily who is following for auth. Auth to be obtained once official discharge orders in place. SW to follow. PLAN: [facility], pending auth from [facility]. SW to follow Javier OJEDA
--- NOTE | 2016-08-09 15:44 | PCM.PNMED ---
Subjective Date of Service Aug 09, 2016 Subjective Patient sitting up in chair by bedside. Still has some confusion but more alert and less confused than yesterday. Exam Vital Signs Vital Sign - Last Date Time Temp Pulse Resp B/P Pulse Ox O2 Delivery O2 Flow Rate FiO2 08/09/16 11:58 78 165/88 Room Air 08/09/16 07:22 36.6 12 08/09/16 04:00 98 Intake and Output 08/08/16 08/08/16 08/09/16 Cumulative From/Thru 15:00 23:00 07:00 08/04/16 16:05 - 08/09/16 05:46 Intake Total 1340 ml 1122 ml 9476 ml Output Total 1495 ml 2180 ml 6768 ml Balance -155 ml -1058 ml 2708 ml Intake Oral 451 ml 300 ml 1626 ml IV Total 889 ml 822 ml 7850 ml Output Urine Total 1495 ml 2180 ml 6365 ml Stool Total 400 ml Urine/Stool Mix 3 ml # Voids 4 # Bowel Movements 0 7 Exam Constitutional: Elderly man in no acute distress with some mild confusion. Head: Normocephalic atraumatic Chest: Clear to auscultation Cor: Regular rate and rhythm S1-S2 without murmur Abdomen: Soft nontender bowel sounds present Extremities: No pedal edema Lab and Diagnostics Laboratory Tests 72 Hours Test 08/07/16 07:33 08/08/16 06:37 08/09/16 07:50 White Blood Count 11.4th/mm3 (3.8-10.1) Red Blood Count 3.46mil/mm3 (4.40-5.80) Hemoglobin 11.0g/dL (13.8-17.2) Hematocrit 32.3% (41.0-50.0) Mean Corpuscular Volume 93.4fL (81-100) Mean Corpuscular Hemoglobin 31.8pg (27.0-35.0) Mean Corpuscular Hemoglobin Concent 34.1% (32.0-37.0) Red Cell Distribution Width 12.6% (12.3-15.4) Platelet Count 269bil/L (150-400) Neutrophils (%) (Auto) 73.2% (40-74) Lymphocytes (%) (Auto) 15.1% (14-46) Monocytes (%) (Auto) 11.1% (4-12) Eosinophils (%) (Auto) 0.2% (0-5) Basophils (%) (Auto) 0.1% (0-3) Sodium Level 138mEq/L (134-144) 135mEq/L (134-144) 134mEq/L (134-144) Potassium Level 3.2mEq/L (3.5-5.2) 3.3mEq/L (3.5-5.2) 4.3mEq/L (3.5-5.2) Chloride Level 102mEq/L (97-108) 96mEq/L (97-108) 97mEq/L (97-108) Carbon Dioxide Level 24mmol/L (18-29) 27mmol/L (18-29) 23mmol/L (18-29) Blood Urea Nitrogen 11mg/dL (8-27) 7mg/dL (8-27) 8mg/dL (8-27) Creatinine 0.59mg/dL (0.76-1.27) 0.55mg/dL (0.76-1.27) 0.49mg/dL (0.76-1.27) Estimat Glomerular Filtration Rate 138mL/min (>59) 150mL/min (>59) 172mL/min (>59) Glucose Level 137mg/dL (60-99) 132mg/dL (60-99) 103mg/dL (60-99) Calcium Level 8.1mg/dL (8.5-10.1) 8.1mg/dL (8.5-10.1) 8.1mg/dL (8.5-10.1) C-Reactive Protein 9.8mg/dL (0.0-0.5) Total Bilirubin 0.3mg/dL (0.0-1.2) 0.2mg/dL (0.0-1.2) Aspartate Amino Transf (AST/SGOT) 24U/L (0-50) 41U/L (0-50) Alanine Aminotransferase (ALT/SGPT) 32U/L (0-44) 37U/L (0-44) Alkaline Phosphatase 54U/L (25-160) 55U/L (25-160) Total Protein 5.4g/dL (6.4-8.4) 5.7g/dL (6.4-8.4) Albumin 3.0g/dL (3.4-5.0) 3.0g/dL (3.4-5.0) Result Diagram: 08/07/16 0733 08/09/16 0750 Microbiology RUN DATE: 08/07/16 [facility] LIVE PAGE 1 RUN TIME: 704 Specimen Inquiry PHYSICIAN Name: PRIMITIVO PARMAR Age/Sex: 86/M Attend Dr: Yaima Moss Acct: [id number] Unit: [id number] Status: ADM [place] Location: [facility] [place], [place] 1025-1 Re08/04/16 Disch: Specimen: [id number] Collected: 08/05/16 Status: RES Req#: [id number] Received: 08/05/16 Source: BLOOD Sp Desc : MAC Capone Dr: Bobby Jackson Ordered: STEPHEN Comments: Collected by Nurse/Unit? Y/N N Procedure Result Verified Site Microbiology ASIA CULTURE BLOOD Preliminary 08/07/16-704 Organism 1 POSITIVE BLOOD CULTURE GRAM STAIN RESULT GRAM POSITIVE COCCI BC BOTTLE Isolated from Aerobic Bottle of Set Drawn DATE CALLED: 08/06/16 TIME CALLED: 1844 CALLED BY: LAYA YODER/DOCTOR: JACQUES MITCHELL READ BACK YES TYPE OF DRAW PERIPHERAL DRAW TIME OF POSITIVITY 1810 GRAM STAIN RESULT GRAM POSITIVE COCCI ?STREP BC BOTTLE2 Isolated from Anaerobic Bottle of Set Drawn DATE CALLED: 08/06/16 TIME CALLED: 1844 CALLED BY: LAYA YODER/DOCTOR: JACQUES MITCHELL READ BACK YES TYPE OF DRAW PERIPHERAL DRAW TIME OF POSITIVITY 1830 Requires further isolation before workup. X-Rays, CTs and MRIs X-RAY CHEST ONE VIEW, PORTABLE IMPRESSION: No acute cardiopulmonary disease. Dictated by: Armando Cruz M.D. on 08/04/2016 at 19:16 Approved by: Armando Cruz M.D. on 08/04/2016 at 19:17 Assessment & Plan 86 year old male with PMH remarkable for depression, BPH, and HTN and had recently undergone a spinal stenosis decompression on 07/31/2016 who presents to the ED via EMS with concerns for increased dizziness and weakness. # Acute leukocytosis, poa and ongoing. Fever, not poa (spiked on 08/05) - blood culture x 2 - f/u pending resp PCR - check lumbar MRI r/o source of infection - f/u MRSA screen - CXR negative for pneumonia - UA negative - surgical site has clean dry bandage without drainage, fluctuance, erythema no signs of infection - procalcitonin negative. - ID consulted. will f/u w/ recs - appreciate neurosurgery consult as well. will f/u w/ recs -Blood culture has come back positive for gram-positive cocci possible strep further identification and sensitivities to follow -Continue with IV high-dose Rocephin for now. Unclear significance and possible source is unclear -Echocardiogram today as per ID. this returned negative. -Infectious disease recommends ordering APRIL which will proceed to do # Rash, new onset, localized back, not present on admission -Possible contact dermatitis related -We will use triamcinolone topically twice a day -Also change sheets etc. that he lies against which are less allergenic # Initial impression of likely acute Dehydration - c/w IVF - c/w supportive care # Lumbar Stenosis, chronic - Lumbar spinal decompression surgery on 07/31 - c/w supportive care - MRI as noted above -Neurosurgery does not feel that the findings of MRI are suggestive of any infection within the site of operation. # acute dysphagia - Swallow Study -Passed swallow study and has no problems with swallowing at this time # Constipation, acute. poa. Resolved. # Acute hypokalemia, poa, resolved - f/u Dispo: 2-3 days pending fever workup and improved strength GI Prophylaxis: H2 harish VTE Prophylaxis: Sub-Q Heparin (Unfractionated), SCDs VTE Mechanical Devices: Intermittant Pneumatic CD Resuscitation Status: CPR: Attempt Resuscitation Time spent 30 minutes Lauren Villar MD Aug 09, 2016 15:44
--- NOTE | 2016-08-09 17:49 | NUR ---
Activity Pt encouraged to get OOB for meals this shift. Up for breakfast and lunch. Pt states discomfort during dinner time and wishes to stay in bed. Call light in reach and used appropriately, bed down and in locked position
[2016-08-09 19:35] VITALS: BP 160/80; PULSE 77; RESP 18; O2SAT 98
[2016-08-10] VITALS (12 sets, daily range): BP systolic 137–201; BP diastolic 74–92; PULSE 60–79; RESP 15–31; O2SAT 94–99
[2016-08-10] MEDS: Heparin 5,000 Unit/mL Inj SUBQ SCH ×3 (00:37→16:21)
[2016-08-10] MEDS: Dextrose 5% 0.45% NaCl 1,000 ML IV SCH ×2 (03:10→16:30)
--- NOTE | 2016-08-10 03:18 | NUR ---
Mentation Patient A&O for most of shift, with slight forgetfulness noted. Pleasant and cooperative with care. No c/o pain or discomfort. Made NPO @ midnight for APRIL later today. Jud alarm in place for safety. Call light within reach.
[2016-08-10] MEDS: cefTRIAXone Inj 2,000 MG in Dextrose 5% Minibag Plus 50 ML IV SCH (04:52)
[2016-08-10] MEDS: Famotidine Inj 20 MG in IV Premix 1 EACH IV SCH ×2 (08:01→20:51)
[2016-08-10] MEDS: Triamcinolone 0.1% 30 Gm Cream TOPICAL SCH ×2 (08:01→20:50)
--- NOTE | 2016-08-10 09:13 | PCM.PNSURG ---
Subjective Date of Service: Aug 10, 2016 Date of Service: Aug 10, 2016 Visit Information: Reason for Visit Generalized Weakness, Surgery/Surgery Date Post-Op Day # Date of Admission: Aug 04, 2016 at 23:29 Hospital Day # Subjective: Rafiq De La Vega is a 86 year old male who presents on the date 08/10/2016 returning to [facility] under Hospitalist & Attending Dr. Jackson' s now under Dr. Villar's care for now overall improved failure to thrive, generalized weakness, & dehydrationon post operative day # 10 status post Metrx minimal access surgery involving bilateral lumbar segmental decompression at the L3-4 & L4-5 levels with approach from the left & placement of epidural fat graft from separate incision. The patient's initial postoperative outpatient with the bed hospital course was within normal limits with discharge on postop day #1 in good condition. The patient's reports that on postop day #2 the patient suffered a near fall out of bed and subsequent worsening fatigue, confusion, & lightheadedness with standing. Home Health RN recommended on postop day #3 if symptoms do not improve to take the patient to the emergency department over last weekend. On readmission reported difficulty OOB & positive blood cultures for Strep with slightly elevated white blood cell counts without neutropenia, current afebrile , & confused condition. Hospitalist Dr. Jackson ordered a postoperative lumbar spinal MRI with and without contrast on 08/06/16. The patient & his have recognized improvement of his neurogenic claudication & related preoperative symptomatology in his lower extremities. The patient was seen by Infectious Disease Specialist Dr. Rachel who indicated a possible source of his bacteremia to be endocarditis or unlikely postsurgical wound infection; therefore the patient underwent echocardiogram which was reported negative by Client Development Consultant Dr. Pemberton for endocarditis. Dr. Rachel has the patient on the appropriate IV antibiotics but there is still no reported source of the patient' s bacteremia. Therefore he is recommending a transesophageal echo and continue IV antibiotics for another 2 weeks. The patient has currently progressed more ambulating around the room & out of bed for meals now. He only complains of mild lower back incisional pain on the left side consistent with the left-sided surgical approach. There is no significant radiation of pain, numbness, paresthesias, or weakness in the bilateral lower extremities. The patient's mentation has also improved significantly throughout his stay. Dr. Logan Juarez M.D. reviewed the patient 's lumbar spinal MRI with and without contrast completed yesterday 08/06/2016 indicating that there was normal postoperative fluid collection without any significant nerve root involvement indicating urgent or emergent neurosurgical intervention. Dr. Juarez continues to not to recommend urgent or emergent Neurosurgical intervention unless the patient is symptomatically indicated & the wound is identified as the infection source. The Neurosurgical service will likely sign off from regular rounding at this point but continue to follow his medical progress throughout his hospital course & remain available whenever necessary. The patient is working with social work for SNF disposition in the near future. The patient denies headache, fever, chills, severe, sore throat, chest pain, shortness or breath, abdominal pain, nausea, vomiting, constipation, diarrhea, or any other new onset and location of pain, weakness, numbness or paresthesias aside from the minimal surgical site pain. Patient also denies any significant related bowel or bladder dysfunction. Objective Objective This is a well developed, well nourished, male who is alert, cooperative, and appears to be in no acute distress with pleasant affect with mild-moderate confusion. Exam of the head is normocephalic. PERRL, EOMI, without facial droop, hearing grossly intact, nostrils patent, oral cavity and pharynx normal. Voice is within normal limits Exam of the lumbar surgical wound reveals that it is clean, dry, and intact; without signs of infection, inflammation, and/or hematoma. Gross exam of the extremities reveals strength, reflexes, & sensation are grossly intact within the patient's normal baseline limits without any significant appreciable peripheral neurological deficits. Vital Sign- Last 8 Hours Date Time Temp Pulse Resp B/P Pulse Ox O2 Delivery O2 Flow Rate FiO2 08/10/16 08:26 Supplement Oxygen 08/10/16 04:46 36.8 60 20 154/76 94 Room Air Intake and Output- Last 8 Hour 08/10/16 Cumulative From/Thru 07:00 08/04/16 16:05 - 08/10/16 05:42 Intake Total 256 ml 46029 ml Output Total 920 ml 76508 ml Balance -664 ml 1298 ml Intake Oral 100 ml 2631 ml IV Total 156 ml 8705 ml Output Urine Total 920 ml 9635 ml Stool Total 400 ml Urine/Stool Mix 3 ml # Voids 4 # Bowel Movements 1 8 Result Diagram: 08/07/16 0733 08/10/16 0635 Assessment & Plan Impression Metrx minimal access surgery involving bilateral lumbar segmental decompression at the L3-4 & L4-5 levels with approach from the left & placement of epidural fat graft from separate incision postop day # 10 with idiopathic postoperative encephalopathy & bacteremia of unknown origin. Based on the patient's history, MRI imaging, and physical presentation he likely does not have a significant postoperative surgical wound infection requiring Neurosurgical intervention at this time. Problems: Plan 1. Continue Attending Hospitalist & Infectious Disease evaluation & treatment. 2. Dr. Logan Juarez M.D. reviewed MRI reveals normal postoperative fluid collection without significant nerve root involvement indicating urgent or emergent surgical intervention. 3. Physical therapy BID with fall precautions please. 4. We will sign off regular rounding at this point but continue to follow the patient's hospital course communicating with Hospitalist Attending & Dr. Rachel as needed. 5. Echocardiogram reported negative for endocarditis & the patient will undergo transesophageal echo. 6. Social work to cancel family for disposition to Assisted Facility. 7. Recommend keep the wound covered with light surgical dressing change daily or as needed while inpatient & SNF 8. Continue physical therapy in SNF twice a day avoiding back exercises, with full assist, weightbearing as tolerated, & fall precautions. 9. The patient should follow-up in our outpatient Neurosurgical clinic approximately 2 weeks after discharge to SNF. 10.Neurosurgery Physician Historical Manuscripts Curator extension #[phone] available all office hours or direct contact Neurosurgeon Dr. Logan Juarez M.D. # . VTE Prophylaxis: Sub-Q Heparin (Unfractionated), SCDs Resuscitation Status: CPR: Attempt Resuscitation copies to: Esau Temple MD, Scott PA-C Aug 10, 2016 09:13
[2016-08-10] MEDS ORDERED: hydrALAZINE 20 mg/mL Inj IV PRN (11:45)
--- NOTE | 2016-08-10 11:56 | PCM.PNMED ---
Subjective Date of Service Aug 10, 2016 Subjective Patient currently working with occupational therapy. Has no new complaints. Exam Vital Signs Vital Sign - Last Date Time Temp Pulse Resp B/P Pulse Ox O2 Delivery O2 Flow Rate FiO2 08/10/16 08:26 Supplement Oxygen 08/10/16 04:46 36.8 60 20 154/76 94 Intake and Output 08/09/16 08/09/16 08/10/16 Cumulative From/Thru 15:00 23:00 07:00 08/04/16 16:05 - 08/10/16 05:42 Intake Total 1604 ml 256 ml 56712 ml Output Total 2350 ml 920 ml 58701 ml Balance -746 ml -664 ml 1298 ml Intake Oral 905 ml 100 ml 2631 ml IV Total 699 ml 156 ml 8705 ml Output Urine Total 2350 ml 920 ml 9635 ml Stool Total 400 ml Urine/Stool Mix 3 ml # Voids 4 # Bowel Movements 1 8 Exam Constitutional: Elderly man in no acute distress Head: Normocephalic atraumatic Chest: Clear to auscultation Cor: Regular rate and rhythm S1-S2 Abdomen: Soft nontender bowel sounds present Extremities: No pedal edema Lab and Diagnostics Result Diagram: 08/07/16 0733 08/10/16 0635 Microbiology RUN DATE: 08/07/16 [facility] LAB LIVE PAGE 1 RUN TIME: 0705 Specimen Inquiry PHYSICIAN Name: PRIMITIVO GILLETTE Age/Sex: 86/M Attend Dr: Yaima Moss Acct: [id number] Unit: [id number] Status: ADM [place] Location: [facility] [place] 1025-1 Re08/04/16 Disch: Specimen: [id number] Collected: 08/05/16 Status: RES Lea#: [id number] Received: 08/05/16 Source: BLOOD Sp Desc : MAC Capone Dr: Bobby Jackson Ordered: STEPHEN Comments: Collected by Nurse/Unit? Y/N N Procedure Result Verified Site Microbiology ASIA CULTURE BLOOD Preliminary 08/07/16-704 Organism 1 POSITIVE BLOOD CULTURE GRAM STAIN RESULT GRAM POSITIVE COCCI BC BOTTLE Isolated from Aerobic Bottle of Set Drawn DATE CALLED: 08/06/16 TIME CALLED: 1844 CALLED BY: LAYA YODER/DOCTOR: JACQUES MITCHELL READ BACK YES TYPE OF DRAW PERIPHERAL DRAW TIME OF POSITIVITY 1810 GRAM STAIN RESULT GRAM POSITIVE COCCI ?STREP BC BOTTLE2 Isolated from Anaerobic Bottle of Set Drawn DATE CALLED: 08/06/16 TIME CALLED: 1844 CALLED BY: LAYA YODER/DOCTOR: JACQUES MITCHELL READ BACK YES TYPE OF DRAW PERIPHERAL DRAW TIME OF POSITIVITY 1830 Requires further isolation before workup. X-Rays, CTs and MRIs X-RAY CHEST ONE VIEW, PORTABLE IMPRESSION: No acute cardiopulmonary disease. Dictated by: Armando Cruz M.D. on 08/04/2016 at 19:16 Approved by: Armando Cruz M.D. on 08/04/2016 at 19:17 Assessment & Plan 86 year old male with PMH remarkable for depression, BPH, and HTN and had recently undergone a spinal stenosis decompression on 07/31/2016 who presents to the ED via EMS with concerns for increased dizziness and weakness. # Acute leukocytosis, poa and ongoing. Fever, not poa (spiked on 08/05) - blood culture x 2 - f/u pending resp PCR - check lumbar MRI r/o source of infection - f/u MRSA screen - CXR negative for pneumonia - UA negative - surgical site has clean dry bandage without drainage, fluctuance, erythema no signs of infection - procalcitonin negative. - ID consulted. will f/u w/ recs - appreciate neurosurgery consult as well. will f/u w/ recs -Blood culture has come back positive for gram-positive cocci possible strep further identification and sensitivities to follow -Continue with IV high-dose Rocephin for now. Unclear significance and possible source is unclear -Echocardiogram today as per ID. this returned negative. -Infectious disease recommends ordering APRIL which will proceed to do, patient is to have APRIL done this afternoon. If APRIL is negative then we will proceed with 2 weeks of IV Rocephin total. Patient will be transferred to [facility] for continuing rehabilitation and IV antibiotics. # Rash, new onset, localized back, not present on admission -Possible contact dermatitis related -We will use triamcinolone topically twice a day -Also change sheets etc. that he lies against which are less allergenic # Initial impression of likely acute Dehydration - c/w IVF - c/w supportive care # Lumbar Stenosis, chronic - Lumbar spinal decompression surgery on 07/31 - c/w supportive care - MRI as noted above -Neurosurgery does not feel that the findings of MRI are suggestive of any infection within the site of operation. # acute dysphagia - Swallow Study -Passed swallow study and has no problems with swallowing at this time # Constipation, acute. poa. Resolved. # Acute hypokalemia, poa, resolved - f/u Dispo: 2-3 days pending fever workup and improved strength GI Prophylaxis: H2 harish VTE Prophylaxis: Sub-Q Heparin (Unfractionated), SCDs VTE Mechanical Devices: Intermittant Pneumatic CD Resuscitation Status: CPR: Attempt Resuscitation Time spent 20 minutes Lauren Villar MD Aug 10, 2016 11:55
[2016-08-10] MEDS ORDERED: fentaNYL-PF 50 mCg/mL 2 mL Inj ONE (12:05)
[2016-08-10] MEDS ORDERED: 0.9% Sodium Chloride 500 ML ONE (12:06)
--- NOTE | 2016-08-10 14:20 | NUR ---
Ryann Wood approved patient for transfer to SNF when ready. Patient is discharging on IV ABX, Ryann will need to know the duration of these. Updated BROADCAST ENGINEER
--- NOTE | 2016-08-10 14:52 | NUR ---
transfer to 1025 Pt VSS on RA post APRIL, pt tolerated procedure well, report given to Laura Romeo RN, updated on patient condition when pt was transported back to room.
--- NOTE | 2016-08-10 15:01 | PROG NOTE ---
[address] [address] PROGRESS NOTE PATIENT: PRIMITIVO PARMAR : 1930 MR#: [id number] ADMIT: 08/04/2016 JOB ID: [id number] DATE: 08/10/2016 INFECTIOUS DISEASE FOLLOWUP NOTE: REASON FOR FOLLOWUP: Strep mitis bacteremia of uncertain origin. INTERVAL HISTORY: The patient continues to feel better and better. He has been up and around walking going to the bathroom on his own. He has no fevers, chills, or sweats. No significant cough, shortness of breath, or chest pain. No GI symptoms. Minimal back pain. PHYSICAL EXAMINATION: Reveals an afebrile gentleman. He has been afebrile since the now. His pulse is 67, respiratory rate is about 20 but charted as 31. Blood pressure 132/74. He is saturating well on 2 L. Patient's mental status has improved and now basically back to normal. His oral cavity reveals no problems with dentition. Lungs clear. Cardiac tones without murmur. Abdomen benign. I did not reinspect his back wound but the notes from the neurosurgical PA shows that it is benign again today. LABORATORY DATA: White blood count was last checked now three days ago and was 11,000. CRP was done today and is down to 2.7 from an earlier peak of 9.8. Urinalysis without white cells. Micro studies include the final identification on the organisms. The patient turns out to have two separate organisms, both Strep mitis, in 4/4 blood culture bottles from the when he was admitted with fever. One of the isolates is exquisitely sensitive to penicillin with an ASIA less than 0.06 while the other is intermediate with an ASIA of 0.25. Both are sensitive to ceftriaxone with MICs of less than 0.0, 0.12 and 0.25, respectively. The vancomycin ASIA is 0.5 for both. The followup blood cultures done the are all negative. A MRSA screen is negative. DIAGNOSTIC STUDIES: The transesophageal echo was just completed. The patient's tells me that she was informed by the certified social workers in health care that the transesophageal echo was normal this afternoon. I do not yet have a final report about that. IMPRESSION: Assuming that the transesophageal echo is negative, I think there is no reasonable probability that the patient has Streptococcus mitis endocarditis. That leaves us with the puzzle as to where this came from. Most likely, I would think it was from an infection of the back, though our neurosurgical colleagues and the MRI scan would suggest that the fluid collection seen in his back on MRI scan would be expected this close to his recent lumbar spine surgery. Also arguing against a significant back infection is the fact that the wound looks benign, and the patient is having almost no symptoms related to the incision and adjacent area. I see no evidence that it is related to his teeth or any odontogenic source either. RECOMMENDATIONS: 1. Assuming the final report on the APRIL is negative I think the patient could be treated for two weeks with ceftriaxone. 2. Note that he will be going to a long-term facility at [facility], so this will be convenient in terms of the ceftriaxone. It can be 2 g once a day continuing through approximately August 19. 3. I would like to see the patient in my clinic on August 22 just to make sure everything is going well. 4. The patient should be closely watched and if he develops unexplained fevers, chills, sweats, shortness of breath, pain in the back, or neurologic symptoms, he should be immediately returned to re-evaluate both his cardiac situation, as well as his lumbar spine.
--- NOTE | 2016-08-10 15:29 | DRSVH ---
[facility] [address] [place] [address] Echocardiogram Report Name: PRIMITIVO PARMAR Date: 08/10/2016 Height: 67 in Hospital Exam Location: [facility] Weight: 184 lb Gender: Male BSA: 2.0 m2 : 1930 Age: 86 yrs BP: 176/72 mmHg Reason For Study: BACTEREMIA Ordering Physician: HOSPITALIST [facility] Performed By: Kendell Shipley Referring Physician: JELANI FISHER Interpretation Summary 1. Normal left ventricular size and systolic function. 2. No vegetations appreciated on the mitral or aortic valves. 3. With the views obtained, no obvious vegetations are appreciated on the tricuspid or pulmonic valves. Procedure: A 2D transesophageal echocardiogram with spectral and color flow Doppler was performed. Informed consent for Transesophageal Echocardiogram, and use of a contrast agent as needed, was obtained prior to the procedure. The patient was brought to the [facility] in a fasting state. An intravenous line was placed. A topical anesthetic agent was used for oropharangeal anesthesia. A bite block was inserted. IV concious sedation was administered using versed and fentanyl. Contrast injection with Imagent was performed. The patient was in normal sinus rhythm during the exam. There were no complications. Left Ventricle: The left ventricle is normal in size. Left ventricular systolic function is normal. Mitral Valve: The leaflets appear thin with normal excursion. There is no vegetation seen on the mitral valve. There is no mitral regurgitation noted. Trivial mitral regurgitation. Aortic Valve: The aortic valve is trileaflet. The aortic valve opens well. Sclerotic changes. There is no aortic valvular vegetation. There is trace aortic regurgitation. Tricuspid Valve: The tricuspid valve leaflets are thin and pliable. No obvious vegetations. There is mild to moderate tricuspid regurgitation. Pulmonic Valve: The pulmonic valve is not well seen, but is grossly normal. In the views obtained, no obvious vegetations. Reading Physician:02:04 PM
[2016-08-11] MEDS: Heparin 5,000 Unit/mL Inj SUBQ SCH ×3 (00:16→16:33)
--- NOTE | 2016-08-11 04:44 | NUR ---
Mentation/Pain Patient A&O at beginning of shift while awake. Pleasant and cooperative with care. Upon awakening early this AM, patient noted to be confused as to where he was at. Yelling out, "Hello?" Patient easily redirected and noted to be resting with eyes closed upon reassessment. Received Acetaminophen 650mg PO for c/o right shoulder/back discomfort with effective results.
[2016-08-11] MEDS: Dextrose 5% 0.45% NaCl 1,000 ML IV SCH ×2 (05:22→19:10)
[2016-08-11 05:45] VITALS: BP 160/81; PULSE 69; RESP 18; O2SAT 95
[2016-08-11] MEDS: Famotidine Inj 20 MG in IV Premix 1 EACH IV SCH ×2 (08:39→20:05)
[2016-08-11] MEDS: cefTRIAXone Inj 2,000 MG in Dextrose 5% Minibag Plus 50 ML IV SCH (09:27)
[2016-08-11] MEDS: Triamcinolone 0.1% 30 Gm Cream TOPICAL SCH ×2 (09:28→20:05)
--- NOTE | 2016-08-11 10:53 | PCM.PNMED ---
Subjective Date of Service Aug 11, 2016 Subjective - Pt seen and examined this morning. - No acute events over night. Denies any new complaints . Exam Vital Signs Vital Sign - Last Date Time Temp Pulse Resp B/P Pulse Ox O2 Delivery O2 Flow Rate FiO2 08/11/16 05:45 36.8 69 18 160/81 95 Room Air 08/10/16 13:15 2.00 Intake and Output 08/10/16 08/10/16 08/11/16 Cumulative From/Thru 15:00 23:00 07:00 08/04/16 16:05 - 08/11/16 06:35 Intake Total 300 ml 766 ml 09723 ml Output Total 295 ml 700 ml 89897 ml Balance 5 ml 66 ml 1369 ml Intake Oral 300 ml 650 ml 3581 ml IV Total 116 ml 8821 ml Output Urine Total 295 ml 700 ml 14817 ml Stool Total 400 ml Urine/Stool Mix 3 ml # Voids 7 11 # Bowel Movements 3 1 12 Exam Constitutional: Elderly man in no acute distress Head: Normocephalic atraumatic Chest: Clear to auscultation Cor: Regular rate and rhythm S1-S2 Abdomen: Soft nontender bowel sounds present Extremities: No pedal edema Lab and Diagnostics Result Diagram: 08/07/16 0733 08/11/16 0640 Microbiology RUN DATE: 08/07/16 [facility] LAB LIVE PAGE 1 RUN TIME: 704 Specimen Inquiry PHYSICIAN Name: PRIMITIVO PARMAR Age/Sex: 86/M Attend Dr: Yaima Moss Acct: [id number] Unit: [id number] Status: [place] [facility] [place]25-1 Re08/04/16 Disch: Specimen: [id number] Collected: 08/05/16 Status: RES Req#: [id number] Received: 08/05/16 Source: BLOOD Sp Desc : MAC Capone Dr: Bobby Jackson Ordered: STEPHEN Comments: Collected by Nurse/Unit? Y/N N Procedure Result Verified Site Microbiology ASIA CULTURE BLOOD Preliminary 08/07/16-704 Organism 1 POSITIVE BLOOD CULTURE GRAM STAIN RESULT GRAM POSITIVE COCCI BC BOTTLE Isolated from Aerobic Bottle of Set Drawn DATE CALLED: 08/06/16 TIME CALLED: 1844 CALLED BY: LAYA YODER/DOCTOR: JACQUES MITCHELL READ BACK YES TYPE OF DRAW PERIPHERAL DRAW TIME OF POSITIVITY 1810 GRAM STAIN RESULT GRAM POSITIVE COCCI ?STREP BC BOTTLE2 Isolated from Anaerobic Bottle of Set Drawn DATE CALLED: 08/06/16 TIME CALLED: 1844 CALLED BY: LAYA YODER/DOCTOR: JACQUES MITCHELL READ BACK YES TYPE OF DRAW PERIPHERAL DRAW TIME OF POSITIVITY 1830 Requires further isolation before workup. X-Rays, CTs and MRIs X-RAY CHEST ONE VIEW, PORTABLE IMPRESSION: No acute cardiopulmonary disease. Dictated by: Armando Cruz M.D. on 08/04/2016 at 19:16 Approved by: Armando Cruz M.D. on 08/04/2016 at 19:17 Assessment & Plan 86 year old male with PMH remarkable for depression, BPH, and HTN and had recently undergone a spinal stenosis decompression on 07/31/2016 who presents to the ED via EMS with concerns for increased dizziness and weakness. # Acute leukocytosis, poa and ongoing. Fever, not poa (spiked on 08/05) - Blood culture has come back positive for gram-positive cocci possible strep further identification and sensitivities to follow - Continue with IV Rocephin as per ID. - Echocardiogram as per ID. this returned negative. - Infectious disease recommends APRIL which was negative. As per ID will proceed with 2 weeks of IV Rocephin total. Patient will be transferred to [facility] for continuing rehabilitation and IV antibiotics. # Rash, new onset, localized back, not present on admission - Possible contact dermatitis related - We will use triamcinolone topically twice a day - Also change sheets etc. that he lies against which are less allergenic # Initial impression of likely acute Dehydration - c/w IVF - c/w supportive care # Lumbar Stenosis, chronic - Lumbar spinal decompression surgery on 07/31 - c/w supportive care - MRI as noted above -Neurosurgery does not feel that the findings of MRI are suggestive of any infection within the site of operation. # acute dysphagia - Swallow Study -Passed swallow study and has no problems with swallowing at this time # Constipation, acute. poa. Resolved. # Acute hypokalemia, poa, resolved - f/u Dispo: 2-3 days pending fever workup and improved strength GI Prophylaxis: H2 harish VTE Prophylaxis: Sub-Q Heparin (Unfractionated), SCDs VTE Mechanical Devices: Intermittant Pneumatic CD Resuscitation Status: CPR: Attempt Resuscitation Jere Potts MD Aug 11, 2016 10:53
[2016-08-11 12:52] VITALS: BP 157/83; PULSE 67; RESP 18; O2SAT 94
--- NOTE | 2016-08-11 18:08 | PROG NOTE ---
[address] [address] PROGRESS NOTE PATIENT: PRIMITIVO PARMAR : 1930 MR#: [id number] ADMIT: 08/04/2016 JOB ID: [id number] DATE: 08/11/2016 INFECTIOUS DISEASE FOLLOWUP NOTE: REASON FOR FOLLOWUP: High-grade Strep mitis bacteremia following lumbar spine surgery. INTERVAL HISTORY: Recall that this is the confusing gentleman who presented with encephalopathy and Strep mitis bacteremia. It was unclear whether he had a possible infection of his recent lumbar spine surgery site, endocarditis, or something else. To date our workup has included a negative APRIL and we have had an MRI and the neurosurgery team evaluate his back and we do not believe that there is evidence of an infection there as well. Nonetheless, the patient is improving on appropriate antibiotics. Today the patient reports he is feeling well. He and his report his mental status is back to normal, which occasion which is basically very sharp and humorous, with occasional lapses of memory or transient confusion. The patient reports no fevers, chills, sweats; no pulmonary or GI symptoms; and no pain in his back. He has been up walking in the halls with some assistance without any back pain or weakness in his legs. PHYSICAL EXAMINATION: Reveals an afebrile gentleman in no acute distress. Temp 36.3, pulse 87, respiratory rate 18, blood pressure 157/83, saturating well on room air. He is awake, alert, conversant, and humorous. Oral cavity negative. Lungs clear. Cardiac tones without new murmur. Abdomen benign. Strength in the lower extremities excellent. IMPRESSION: This is an odd case of a gentleman who developed a high-grade Streptococcus mitis bacteremia shortly after lumbar spine surgery. His back appears uninfected and we now have good evidence that his valves are not infected as we have the negative APRIL, no murmur, and no peripheral stigmata of endocarditis. I think the most prudent course here is to continue for a full two week course of IV ceftriaxone through August 19. RECOMMENDATIONS: 1. Continue ceftriaxone through August 19. 2. The nurses inform me that the [facility] will not take someone with a peripheral IV with the intention of continuing antibiotics more than a couple of days. I think it would be best for the patient if [facility] and simply have peripheral IVs switched every three days to finish one more week of IV ceftriaxone, but apparently that is against their rules, and so I have ordered a midline catheter to be placed as he needs only really seven doses of ceftriaxone. 3. The patient reports he has an itchy scrotum. I failed to mention that I examined his scrotum and a looks fine. I prescribed some talcum powder at the patient's request. 4. The patient has plans to see me in clinic on August 15.
--- NOTE | 2016-08-11 19:02 | NUR ---
activity Pt A&O this shift. walk into [facility] with PT hungry and eating all his meals. Pt stated pain in his right shoulder when he moves it, but stated he did not need anything for pain at this time.
[2016-08-11 20:15] VITALS: BP 155/84; PULSE 79; RESP 20; O2SAT 95
[2016-08-12] MEDS: Heparin 5,000 Unit/mL Inj SUBQ SCH ×2 (00:42→08:59)
--- NOTE | 2016-08-12 04:09 | NUR ---
Pain Patient c/o dull 07/17 right shoulder pain this evening @ bedtime. States he only really feels it when he moves it, but wanted something for pain management before bed. Received Tylenol 650mg PO with effective results. Currently resting with eyes closed.
[2016-08-12 04:35] VITALS: BP 158/79; RESP 20; O2SAT 95
[2016-08-12 05:38] LABS: BASOPHILS % (AUTO) 0.5 % (0-3); EOSINOPHILS % (AUTO) 2.7 % (0-5); MONOCYTES % (AUTO) 10.6 % (4-12); Mean Corpuscular Hemoglobin 31.9 pg (27.0-35.0); Mean Corpuscular Volume 93.2 fL (81-100); NEUTROPHILS % (AUTO) 63.2 % (40-74); Platelet Count 415 bil/L (150-400)
[2016-08-12] MEDS: Dextrose 5% 0.45% NaCl 1,000 ML IV SCH (08:30)
[2016-08-12] MEDS: Famotidine Inj 20 MG in IV Premix 1 EACH IV SCH (08:56)
[2016-08-12] MEDS: cefTRIAXone Inj 2,000 MG in Dextrose 5% Minibag Plus 50 ML IV SCH (08:56)
--- NOTE | 2016-08-12 09:00 | NUR ---
ESTELLA signed RUSTY Swann
[2016-08-12] MEDS: Triamcinolone 0.1% 30 Gm Cream TOPICAL SCH (09:07)
--- NOTE | 2016-08-12 10:09 | PCM.DIMED ---
Discharge Instructions Date of Service Aug 12, 2016 Dates of Hospitalization Aug 04, 2016 at 23:29 Discharge Diagnosis Discharge Diagnosis - Sepsis Patient Instructions - Follow up with Dr Rachel on 08/15/2016 Follow-up with PCP in: 2 weeks Provider: Gabriel Rachel MD, Manan A MD Aug 12, 2016 10:09
[2016-08-12] MEDS ORDERED: ATOR10TA66 PO (10:12)
[2016-08-12] MEDS ORDERED: AMLO5TAB2 PO (10:12)
[2016-08-12] MEDS ORDERED: ROC2I IVPB ×2 (10:14→10:19)
--- NOTE | 2016-08-12 10:23 | PCM.DC.MED ---
Discharge Summary Date of Service Aug 12, 2016 Dates of Hospitalization Date of Hospital Admission Aug 04, 2016 at 23:29 Date of Discharge: Aug 12, 2016 Providers: Admitting Physician: Yaima Moss DO Primary Care Physician: Esau Temple MD Attending Physician: Yaima Moss DO Diagnosis at Time of Discharge Diagnosis at Time of Discharge - Sepsis Procedures XRay, CTs & MRIs X-RAY CHEST ONE VIEW, PORTABLE IMPRESSION: No acute cardiopulmonary disease. Dictated by: Armando Cruz M.D. on 08/04/2016 at 19:16 Approved by: Armando Cruz M.D. on 08/04/2016 at 19:17 Brief History Pt is an 86 year old male with PMH remarkable for depression, BPH, and HTN and had recently undergone a spinal stenosis decompression on 07/31/2016 who presents to the ED via EMS with concerns for increased dizziness and weakness. He reports that the dizziness is typically only upon standing only and is described as light headedness and not vertigo. When asked about pain symptoms that patient denies back pain but states that his right shoulder is hurting. He reports that he "doesn't feel like he is progressing like he should be". Pt states that he is able to walk around, but continues to feel uncomfortable. He is controlling his pain with Hydrocodone every 6 hours. Pt's reports that he was taking a large dose previously, but has become too sedated and fell out of bed. Pt reports some minor difficulty swallowing liquids, but admits to decreased appetite and constipation for the past week. He states that he has had a nonproductive cough recently. He denies dysuria, fevers, abdominal pain, chills, nausea, vomiting or any other symptoms. He reports a history of mild constipation, and admits to taking a stool softener and having an enema performed recently. He denies any sick contacts except his who has had a cough. Hospital Course 86 year old male with PMH remarkable for depression, BPH, and HTN and had recently undergone a spinal stenosis decompression on 07/31/2016 who presents to the ED via EMS with concerns for increased dizziness and weakness. # Acute leukocytosis, poa and ongoing. Fever, not poa (spiked on 08/05) - Blood culture has come back positive for gram-positive cocci possible strep further identification and sensitivities to follow - Continue with IV Rocephin as per ID. - Echocardiogram as per ID. this returned negative. - Infectious disease recommends APRIL which was negative. As per ID will proceed with 2 weeks of IV Rocephin total. Patient will be transferred to [facility] for continuing rehabilitation and IV antibiotics.He will finish IV ceftriaxoen 2 gm daily on 08/19/2016 # Rash, new onset, localized back, not present on admission - Possible contact dermatitis related - We will use triamcinolone topically twice a day - Also change sheets etc. that he lies against which are less allergenic # Initial impression of likely acute Dehydration - c/w IVF - c/w supportive care # Lumbar Stenosis, chronic - Lumbar spinal decompression surgery on 07/31 - c/w supportive care - MRI as noted above -Neurosurgery does not feel that the findings of MRI are suggestive of any infection within the site of operation. # acute dysphagia - Swallow Study -Passed swallow study and has no problems with swallowing at this time # Constipation, acute. poa. Resolved. # Acute hypokalemia, poa, resolved - f/u Dispo: 2-3 days pending fever workup and improved strength Exam Vital Signs (Last) Date Time Temp Pulse Resp B/P Pulse Ox O2 Delivery O2 Flow Rate FiO2 08/12/16 04:35 36.5 20 158/79 95 Room Air 08/11/16 20:15 79 08/10/16 13:15 2.00 Exam Constitutional: Elderly man in no acute distress Head: Normocephalic atraumatic Chest: Clear to auscultation Cor: Regular rate and rhythm S1-S2 Abdomen: Soft nontender bowel sounds present Extremities: No pedal edema Test 08/04/16 17:30 08/04/16 22:10 08/05/16 05:12 08/06/16 07:19 Magnesium Level 2.3mg/dL (1.6-2.6) Troponin T < 0.010ug/L (0.0-0.011) Hold Jackson Top Tube Received (Received) Urine Color Dark yellow (YELLOW) Urine Appearance Clear (CLEAR,HAZY) Urine pH 6.5 (5.0-8.0) Urine Specific [place] 1.020 (1.003-1.035) Urine Protein Negativemg/dL (NEG,TRACE) Urine Glucose (UA) Negativemg/dL (NEGATIVE) Urine Ketones Tracemg/dL (NEGATIVE) Urine Occult Blood Trace (NEGATIVE) Urine Nitrite Negative (NEGATIVE) Urine Bilirubin Negative (NEGATIVE) Urine Urobilinogen Normalmg/dL (NORMAL) Urine Leukocyte Esterase Negative (NEGATIVE) Urine RBC 0-2/hpf (0-2) Urine WBC 0-5/hpf (0-5) Urine Epithelial Cells Occasional/hpf (NONE-MOD) Urine Crystals None seen (NONE SEEN) Urine Bacteria None/hpf (NONE-FEW) Urine Hyaline Casts None/lpf (NONE) Urine Granular Casts None seen (NONE SEEN) Urine Waxy Casts None seen (NONE SEEN) Urine Red Blood Cell Casts None seen (NONE SEEN) Urine White Blood Cell Casts None seen (NONE SEEN) Urine Mucus None seen (None Seen) Urine Trichomonas None seen (NONE SEEN) Urine Yeast None (NONE SEEN) Urine Culture Reflexed Not indicated Thyroid Stimulating Hormone (TSH) 0.641uIU/mL (0.450-4.500) Procalcitonin < 0.05ng/mL (See Comment) Test 08/10/16 06:35 08/12/16 05:21 C-Reactive Protein 2.7mg/dL (0.0-0.5) White Blood Count 10.3th/mm3 (3.8-10.1) Red Blood Count 4.11mil/mm3 (4.40-5.80) Hemoglobin 13.1g/dL (13.8-17.2) Hematocrit 38.3% (41.0-50.0) Mean Corpuscular Volume 93.2fL (81-100) Mean Corpuscular Hemoglobin 31.9pg (27.0-35.0) Mean Corpuscular Hemoglobin Concent 34.2% (32.0-37.0) Red Cell Distribution Width 13.0% (12.3-15.4) Platelet Count 415bil/L (150-400) Neutrophils (%) (Auto) 63.2% (40-74) Lymphocytes (%) (Auto) 21.4% (14-46) Monocytes (%) (Auto) 10.6% (4-12) Eosinophils (%) (Auto) 2.7% (0-5) Basophils (%) (Auto) 0.5% (0-3) Sodium Level 140mEq/L (134-144) Potassium Level 4.2mEq/L (3.5-5.2) Chloride Level 100mEq/L (97-108) Carbon Dioxide Level 26mmol/L (18-29) Blood Urea Nitrogen 14mg/dL (8-27) Creatinine 0.72mg/dL (0.76-1.27) Estimat Glomerular Filtration Rate 110mL/min (>59) Glucose Level 113mg/dL (60-99) Calcium Level 8.8mg/dL (8.5-10.1) Total Bilirubin 0.2mg/dL (0.0-1.2) Aspartate Amino Transf (AST/SGOT) 39U/L (0-50) Alanine Aminotransferase (ALT/SGPT) 63U/L (0-44) Alkaline Phosphatase 73U/L (25-160) Total Protein 6.0g/dL (6.4-8.4) Albumin 3.4g/dL (3.4-5.0) Microbiology Results RUN DATE: 08/07/16 [facility] LIVE PAGE 1 RUN TIME: 704 Specimen Inquiry PHYSICIAN Name: PRIMITIVO PARMAR Age/Sex: 86/M Attend Dr: Yaima Moss Acct: [id number] Unit: [id number] Status: Dina [place] [facility] [place] Re08/04/16 Disch: Specimen: [id number] Collected: 08/05/16 Status: RES Req#: [id number] Received: 08/05/16 Source: BLOOD Sp Desc : MAC Capone Dr: Bobby Jackson Ordered: STEPHEN Comments: Collected by Nurse/Unit? Y/N N Procedure Result Verified Site Microbiology ASIA CULTURE BLOOD Preliminary 08/07/16-704 Organism 1 POSITIVE BLOOD CULTURE GRAM STAIN RESULT GRAM POSITIVE COCCI BC BOTTLE Isolated from Aerobic Bottle of Set Drawn DATE CALLED: 08/06/16 TIME CALLED: 1844 CALLED BY: LAYA YODER/DOCTOR: JACQUES MITCHELL READ BACK YES TYPE OF DRAW PERIPHERAL DRAW TIME OF POSITIVITY 1810 GRAM STAIN RESULT GRAM POSITIVE COCCI ?STREP BC BOTTLE2 Isolated from Anaerobic Bottle of Set Drawn DATE CALLED: 08/06/16 TIME CALLED: 1844 CALLED BY: LAYA YODER/DOCTOR: JACQUES MITCHELL READ BACK YES TYPE OF DRAW PERIPHERAL DRAW TIME OF POSITIVITY 1830 Requires further isolation before workup. Discharge Medications Discharge Medications Amlodipine (Amlodipine) 5 Mg Tablet 5 MG PO DAILY Prescribed by: ZHOU OROZCO MD Aspirin (Aspirin) 81 Mg Tablet 81 MG PO DAILY (Reported) Atorvastatin Calcium (Atorvastatin Calcium) 10 Mg Tablet 5 MG PO HS Prescribed by: ZHOU OROZCO MD Ceftriaxone Sod (Ceftriaxone) 2 Gm Vial 2 GM IVPB DAILY Prescribed by: ZHOU OROZCO MD Finasteride (Finasteride) 5 Mg Tablet 5 MG PO DAILY (Reported) Gluc Briones/MSM/Magnesium/Vit C (Glucosamine Complex-MSM Cap) 1 Each Capsule 1 EACH PO DAILY (Reported) Hydrochlorothiazide (Hydrochlorothiazide) 25 Mg Tablet 25 MG PO DAILY (Reported ) Lovastatin (Lovastatin) 20 Mg Tablet 20 MG PO HS (Reported) Mirtazapine (Mirtazapine) 15 Mg Tablet 15 MG PO HS (Reported) Tamsulosin (Flomax) 0.4 Mg Capsule 0.4 MG PO DAILY (Reported) Trazodone (Trazodone) 100 Mg Tablet 50 MG PO HS (Reported) Venlafaxine (Venlafaxine) 37.5 Mg Tablet 37.5 MG PO BIDWM (Reported) Vitamin B Complex & Vit C No.4 (Super B Complex) 150 Mg Tablet 150 MG PO DAILY ( Reported) As needed Docusate Sodium (Docusate Sodium) 250 Mg Capsule 250 MG PO BID PRN PRN For Constipation (Reported) Hydrocodone-Acetaminophen 10-325 mg (Hydrocodone-Acetaminophen 10-325 mg) 1 Each Tablet 1-2 TABLET PO Q4H PRN PRN For Pain (Reported) Lorazepam (Lorazepam) 1 Mg Tablet 1 MG PO HS PRN PRN For Insomnia (Reported) Followup Plan Patient Instructions - Follow up with Dr Rachel on 08/15/2016 Follow-up with PCP in: 2 weeks Provider: Gabriel Rachel MD, Manan A MD Aug 12, 2016 10:23
--- NOTE | 2016-08-12 11:06 | PCM.PNMED ---
Subjective Date of Service Aug 12, 2016 Subjective - Pt seen and examined this morning. - No acute events over night. Exam Vital Signs Vital Sign - Last Date Time Temp Pulse Resp B/P Pulse Ox O2 Delivery O2 Flow Rate FiO2 08/12/16 04:35 36.5 20 158/79 95 Room Air 08/11/16 20:15 79 08/10/16 13:15 2.00 Intake and Output 08/11/16 08/11/16 08/12/16 Cumulative From/Thru 15:00 23:00 07:00 08/04/16 16:05 - 08/12/16 06:29 Intake Total 1150 ml 320 ml 94132 ml Output Total 600 ml 350 ml 84778 ml Balance 550 ml -30 ml 1889 ml Intake Oral 1092 ml 320 ml 4993 ml IV Total 58 ml 8879 ml Output Urine Total 600 ml 350 ml 46004 ml Stool Total 400 ml Urine/Stool Mix 3 ml # Voids 1 4 16 # Bowel Movements 0 12 Exam Constitutional: Elderly man in no acute distress Head: Normocephalic atraumatic Chest: Clear to auscultation Cor: Regular rate and rhythm S1-S2 Abdomen: Soft nontender bowel sounds present Extremities: No pedal edema IVs and Medications Medications Reviewed: Medications were reviewed in detail Lab and Diagnostics Result Diagram: 08/12/1652008/12/16520 Microbiology RUN DATE: 08/07/16 [facility] LAB LIVE PAGE 1 RUN TIME: 07 Specimen Inquiry PHYSICIAN Name: PRIMITIVO PARMAR Age/Sex: 86/M Attend Dr: Yaima Moss Acct: [id number] Unit: [id number] Status: ADM [place]ina [place] [facility] [place]1 Re08/04/16 Disch: Specimen: [id number] Collected: 08/05/16 Status: RES Req#: [id number] Received: 08/05/16 Source: BLOOD Sp Desc : MAC Capone Dr: Bobby Jackson Ordered: STEPHEN Comments: Collected by Nurse/Unit? Y/N N Procedure Result Verified Site Microbiology ASIA CULTURE BLOOD Preliminary 08/07/16-704 Organism 1 POSITIVE BLOOD CULTURE GRAM STAIN RESULT GRAM POSITIVE COCCI BC BOTTLE Isolated from Aerobic Bottle of Set Drawn DATE CALLED: 08/06/16 TIME CALLED: 1844 CALLED BY: LAYA FLOOR/DOCTOR: JACQUES MITCHELL READ BACK YES TYPE OF DRAW PERIPHERAL DRAW TIME OF POSITIVITY 1810 GRAM STAIN RESULT GRAM POSITIVE COCCI ?STREP BC BOTTLE2 Isolated from Anaerobic Bottle of Set Drawn DATE CALLED: 08/06/16 TIME CALLED: 1844 CALLED BY: LAYA YODER/DOCTOR: JACQUES MITCHELL READ BACK YES TYPE OF DRAW PERIPHERAL DRAW TIME OF POSITIVITY 1830 Requires further isolation before workup. X-Rays, CTs and MRIs X-RAY CHEST ONE VIEW, PORTABLE IMPRESSION: No acute cardiopulmonary disease. Dictated by: Armando Cruz M.D. on 08/04/2016 at 19:16 Approved by: Armando Cruz M.D. on 08/04/2016 at 19:17 Assessment & Plan 86 year old male with PMH remarkable for depression, BPH, and HTN and had recently undergone a spinal stenosis decompression on 07/31/2016 who presents to the ED via EMS with concerns for increased dizziness and weakness. # Acute leukocytosis, poa and ongoing. Fever, not poa (spiked on 08/05) - Blood culture has come back positive for gram-positive cocci possible strep further identification and sensitivities to follow - Continue with IV Rocephin as per ID. - Echocardiogram: negative - Infectious disease recommends APRIL which was negative. As per ID will proceed with 2 weeks of IV Rocephin total. Patient will be transferred to [facility] for continuing rehabilitation and IV antibiotics.He will finish IV ceftriaxoen 2 gm daily on 08/19/2016 # Rash, new onset, localized back, not present on admission - Possible contact dermatitis related - We will use triamcinolone topically twice a day - Also change sheets etc. that he lies against which are less allergenic # Initial impression of likely acute Dehydration - c/w IVF - c/w supportive care # Lumbar Stenosis, chronic - Lumbar spinal decompression surgery on 07/31 - c/w supportive care - MRI as noted above -Neurosurgery does not feel that the findings of MRI are suggestive of any infection within the site of operation. # acute dysphagia - Swallow Study -Passed swallow study and has no problems with swallowing at this time # Constipation, acute. poa. Resolved. # Acute hypokalemia, poa, resolved - f/u Dispo 1- 2 days to SNF GI Prophylaxis: H2 harish VTE Prophylaxis: Sub-Q Heparin (Unfractionated), SCDs VTE Mechanical Devices: Intermittant Pneumatic CD Resuscitation Status: CPR: Attempt Resuscitation Jere Potts MDb 5, 2017 11:06
--- NOTE | 2016-08-12 11:41 | NUR ---
Social Work: Readiness for d/c Data: Pt is on day 8 of hospitalization. EMR reviewed. MD states pt likely to d/c today. Pt is getting a midline placed for 2 weeks of ceftriazone IVABX. ROBOTIC TOY INVENTOR spoke with who states pt is ready for d/c after midline is placed. ROBOTIC TOY INVENTOR spoke with RN who is talking with IV therapy regarding timing of midline placement. ROBOTIC TOY INVENTOR called [facility] again after receiving a voice mail from them and left a voicemail. ROBOTIC TOY INVENTOR spoke with RN who states [facility] authorization has been obtained. ROBOTIC TOY INVENTOR will continue to follow. Assessment: Pt from SNF. Plan: Pt will d/c to [facility] after Midline placement. ROBOTIC TOY INVENTOR awaiting phone call from [facility] and will continue to follow. RUSTY Swann
[2016-08-12 12:57] VITALS: BP 153/82; PULSE 71; RESP 20; O2SAT 95
--- NOTE | 2016-08-12 13:43 | NUR ---
Social Work: Continued d/c planning Data: DAIRY FARMER hear back from [facility] who states they do not have pt on their acceptance list. DAIRY FARMER looked further into case management notes and access was given but it does not state a referral was sent who when they had accepted pt, only that going to [facility] was the plan. DAIRY FARMER gave [facility] access and they state they will look over EMR and get back to DAIRY FARMER regarding if they can accept pt or not. DAIRY FARMER notified by RN that midline was placed and pt is ready for d/c at any time. DAIRY FARMER will continue to follow. Assessment: Pt who is independent at baseline. Plan: Pt will d/c to SNF, likely to [facility] pending their approval. [facility] authorization obtained, per JAKE RN. DAIRY FARMER awaiting phone call from [facility]. DAIRY FARMER will continue to follow. RUSTY Swann
--- NOTE | 2016-08-12 15:39 | NUR ---
Social Work: Discharge Data: Pt is on day 8 of hospitalization. EMR reviewed. D/C orders are in. [facility] states [facility] can take pt today, transportation set up for 4:00pm. GREENHOUSE OR NURSERY TRANSPLANTER notified [facility] who will notify RN. No further d/c planning needs at this time. GREENHOUSE OR NURSERY TRANSPLANTER will continue to follow if needs arise. Assessment: Pt who is independent at baseline. Plan: Pt will d/c to [facility] at 4:00pm today. No further d/c planning needs at this time. GREENHOUSE OR NURSERY TRANSPLANTER will continue to follow if needs arise. RUSTY Swann
--- NOTE | 2016-08-12 18:34 | NUR ---
Discharge patient discharged to [facility] this afternoon. Pt transported via cabulance with following in private vehicle. Report called but only answering machine of admit nurse received so message left and number left for them to call me.
== END 2016-08-12 16:06 | DRG 871 ==
LOC: SED 16:04 → OBSVTOIN 23:29 → OSC 23:29
PROVIDERS: ADMIT Internal Medicine; ATTEND Internal Medicine
PROC: B245ZZ4 Ultrasonography of Left Heart, Transesophageal (ICD-10-PCS; principal; 2016-08-10)
DX: R78.81 Bacteremia (principal); G93.40 Encephalopathy, unspecified; E86.0 Dehydration; Z79.82 Long term (current) use of aspirin; Z87.891 Personal history of nicotine dependence; D72.829 Elevated white blood cell count, unspecified; K59.00 Constipation, unspecified; E87.6 Hypokalemia; M48.00 Spinal stenosis, site unspecified; R13.10 Dysphagia, unspecified; L25.9 Unspecified contact dermatitis, unspecified cause; A49.1 Streptococcal infection, unspecified site